=== PATIENT | male | born 1955 | race Caucasian/White ===

== ENCOUNTER 2017-08-26 12:17 | Inpatient (IN) | payer SELFPAY ==
[2017-08-26] MEDS ORDERED: PREDNISONE 20 MG TABLET PO ONE (12:47)
[2017-08-26] MEDS ORDERED: IPRATROPIUM/ALBUTEROL 0.5-2.5 MG/3 ML AMPUL NEB ONE (12:47)
--- NOTE | 2017-08-26 12:48 | ER Document Report ---
ED Medical Screen (RME) - General Chief Complaint: Chest Pain Stated Complaint: CONGESTION Time Seen by Provider: 08/26/17 12:43 Notes: 60-year-old male smoker complains of a one-week history of chest congestion, cough, chest pain. He reports it hurts when he coughs but he also has pain when he is not coughing. He states he has had thick yellow sputum. He states he has not slept much in the past week. He does smoke up to a pack a day. I have greeted and performed a rapid initial assessment of this patient. A comprehensive ED assessment and evaluation of the patient, analysis of test results and completion of the medical decision making process will be conducted by additional ED providers. TRAVEL OUTSIDE OF THE [place] IN LAST 30 DAYS: No - Related Data Allergies/Adverse Reactions: No Known Allergies Allergy (Verified 08/26/17 12:17) Physical Exam - Vital signs Vitals: Temp Pulse Resp BP Pulse Ox 97.4 F 134 H 24 H 122/80 97 08/26/17 12:20 08/26/17 12:20 08/26/17 12:20 08/26/17 12:20 08/26/17 12:20 Course - Vital Signs Vital signs: Temp Pulse Resp BP Pulse Ox 97.4 F 134 H 24 H 122/80 97 08/26/17 12:20 08/26/17 12:20 08/26/17 12:20 08/26/17 12:20 08/26/17 12:20
[2017-08-26 13:27] LABS: ABSOLUTE BASOPHILS # (AUTO) 0.1 10^3/uL (0.0-0.2); ABSOLUTE EOSINOPHILS # (AUTO) 0.2 10^3/uL (0.0-0.6); ABSOLUTE LYMPHOCYTES (AUTO) 1.3 10^3/uL (0.5-4.7); ABSOLUTE NEUT (AUTO) 7.6 10^3/uL (1.7-8.2); EOSINOPHILS % (AUTO) 1.6 % (0-6); HEMATOCRIT 42.1 % (37.9-51.0); HEMOGLOBIN 14.4 g/dL (13.5-17.0); LYMPHOCYTES % (AUTO) 13.2 % (13-45); MEAN CORPUSCULAR HEMOGLOBIN 30.4 pg (27.0-33.4); MEAN CORPUSCULAR HGB CONC 34.2 g/dL (32.0-36.0); MEAN CORPUSCULAR VOLUME 89 fl (80-97); MONOCYTES % (AUTO) 9.5 % (3-13); PLATELET COUNT 629 10^3/uL (150-450); RED BLOOD COUNT 4.73 10^6/uL (4.35-5.55); RED CELL DISTRIBUTION WIDTH 12.6 % (11.5-14.0); SEGMENTED NEUTROPHILS % (AUTO) 74.7 % (42-78); TOTAL CELLS COUNTED % (AUTO) 100 %; WHITE BLOOD COUNT 10.2 10^3/uL (4.0-10.5)
[2017-08-26] MEDS ORDERED: NORMAL SALINE 1000 ML 1,000 ML IV ONE (13:30)
--- NOTE | 2017-08-26 13:33 | ER Document Report ---
ED Cardiac - General Chief Complaint: Chest Pain Stated Complaint: CONGESTION Time Seen by Provider: 08/26/17 12:43 Mode of Arrival: Ambulatory Information source: Patient TRAVEL OUTSIDE OF THE [place] IN LAST 30 DAYS: No - HPI Patient complains to provider of: Chest pain Notes: Patient is here with complaints of left-sided chest pain. The pain is been present for the last few days. The pain is constant but certainly worse when he coughs. He has had a cough for about a week and also lost his voice. He states he has been coughing up some yellow colored sputum. He is a smoker. He denies any fevers. He denies any significant shortness of breath. He denies any known history of high cholesterol, diabetes, hypertension, CAD, COPD, but states that he has not seen a doctor and several years. He denies any recent long trips or car rides, leg pain or leg swelling, cancer, history of DVT or PE. Denies any rash. No abdominal pain. No nausea, vomiting, diarrhea. - Related Data Allergies/Adverse Reactions: No Known Allergies Allergy (Verified 08/26/17 12:17) Past Medical History - Social History Smoking Status: Current Every Day Smoker Frequency of alcohol use: None Drug Abuse: None Family History: Reviewed & Not Pertinent Patient has suicidal ideation: No Patient has homicidal ideation: No Renal/ Medical History: Denies: Hx Peritoneal Dialysis Review of Systems - Review of Systems -: Yes All other systems reviewed and negative Physical Exam - Vital signs Vitals: Temp Pulse Resp BP Pulse Ox 97.4 F 134 H 24 H 122/80 97 08/26/17 12:20 08/26/17 12:20 08/26/17 12:20 08/26/17 12:20 08/26/17 12:20 - Notes Notes: GENERAL: alert, cooperative, nontoxic, no distress. HEAD: normocephalic, atraumatic EYES: conjunctiva pink without discharge, no external redness or swelling. EARS: no external swelling, no external redness NOSE: atraumatic, no external swelling MOUTH/THROAT: mucous membranes moist and pink, posterior pharynx without erythema, swelling, exudate. No trismus or drooling. Hoarse voice. no Stridor. NECK: soft, supple, full range of motion, no meningismus. CHEST: no distress, scattered expiratory wheezes throughout. CARDIAC: regular rhythm, tachycardia, no murmur, normal capillary refill, normal pulses. No peripheral edema noted. ABDOMEN: Soft, nontender. BACK: full range of motion, no CVA tenderness. EXTREMITIES: full range of motion of all extremities. No redness, no swelling. NEURO: alert and oriented x 3, no focal deficits, full range of motion of all extremities. PYSCH: appropriate mood, affect. Patient is cooperative. SKIN: pink, warm, dry, no rash. Course - Re-evaluation Re-evalutation: 08/26/17 17:36 Patient is nontoxic appearing with stable vitals. Patient is here with complaints of left-sided chest pain. His exam is unremarkable. EKG is negative. Patient was slightly tachycardic on arrival. D-dimer was ordered and was elevated. Chest x-ray showed some nodular lesions within the chest. CT of the chest shows a large left hilar/mediastinal mass with compression of the left main and proximal pulmonary arteries as well as metastatic lesions within the lungs. Remainder the patient's workup is unremarkable. I discussed case with Dr. Burrell, the on-call hospitalist. I have discussed the case with the oncologist on-call Dr. Helton, states that the patient can stay at the hospital. On slow and he will be consulted and see the patient tomorrow morning. I discussed these findings with the patient, he is willing to stay in the hospital for further evaluation and management of this new diagnosis of metastatic lung cancer. Patient is otherwise stable at this time. 08/26/17 17:40 - Vital Signs Vital signs: Temp Pulse Resp BP Pulse Ox 97.4 F 134 H 24 H 142/86 H 97 08/26/17 12:20 08/26/17 12:20 08/26/17 15:16 08/26/17 15:16 08/26/17 15:16 - Laboratory Result Diagrams: 08/26/17 12:58 08/26/17 12:58 Laboratory results interpreted by me: 08/26/17 08/26/17 08/26/17 12:58 12:58 12:58 Plt Count 629 H D-Dimer 0.86 H BUN 21 H Glucose 113 H Calcium 10.3 H Alkaline Phosphatase 235 H - Diagnostic Test Radiology reviewed: Image reviewed, Reports reviewed - Nodular lesions within the lungs. CTA shows no obvious pulmonary embolism, large left mediastinal/ hilar mass with metastatic lesions. Significant constriction of the left main pulmonary artery. - EKG Interpretation by Me EKG shows normal: Sinus rhythm, [place], Intervals, QRS Complexes, ST-T Waves Rate: Tachycardia When compared to previous EKG there are: Previous EKG unavailable Discharge - Discharge Clinical Impression: Lung cancer Qualifiers: Laterality: left Lung location: hilum of lung Qualified Code(s): C34.02 - Malignant neoplasm of left main bronchus Condition: Serious Disposition: ADMITTED INPATIENT Admitting Provider: Hospitalist - [facility] Admitted: Telemetry
[2017-08-26 13:44] LABS: ALANINE AMINOTRANSFERASE 33 U/L (21-72); ALBUMIN 3.9 g/dL (3.5-5.0); ALKALINE PHOSPHATASE 235 U/L (38-126); ANION GAP 14 (5-19); ASPARTATE AMINO TRANSFERASE 51 U/L (17-59); BILIRUBIN,DIRECT 0.4 mg/dL (0.0-0.4); BILIRUBIN,TOTAL 0.6 mg/dL (0.2-1.3); BLOOD UREA NITROGEN 21 mg/dL (7-20); CALCIUM 10.3 mg/dL (8.4-10.2); CARBON DIOXIDE 27 mmol/L (22-30); CHLORIDE 99 mmol/L (98-107); CREATINE KINASE 80 U/L (55-170); GLUCOSE 113 mg/dL (75-110); POTASSIUM 4.4 mmol/L (3.6-5.0); SODIUM 140.2 mmol/L (137-145); TOTAL PROTEIN 6.9 g/dL (6.3-8.2)
--- NOTE | 2017-08-26 13:45 | RADIOLOGY REPORT (SQ) ---
EXAM DESCRIPTION: CHEST 2 VIEWS COMPLETED DATE/TIME: 08/26/2017 1:22 pm REASON FOR STUDY: Yellow productive cough, wheezing, chest pain COMPARISON: None. EXAM PARAMETERS: NUMBER OF VIEWS: two views TECHNIQUE: Digital Frontal and Lateral radiographic views of the chest acquired. RADIATION DOSE: NA LIMITATIONS: none FINDINGS: LUNGS AND PLEURA: Ill-defined vaguely nodular opacities throughout both lungs. No pleural effusion. No pneumothorax. MEDIASTINUM AND HILAR STRUCTURES: No masses or contour abnormalities. HEART AND VASCULAR STRUCTURES: Heart normal size. No evidence for failure. BONES: No acute findings. HARDWARE: None in the chest. OTHER: No other significant finding. IMPRESSION: ILL-DEFINED VAGUELY NODULAR OPACITIES. THESE COULD REPRESENT PLEURAL PLAQUES OR PARENCH YMAL NODULES. RECOMMEND FOLLOW-UP CT OF THE CHEST. TECHNICAL DOCUMENTATION: JOB ID: [id number] [employer]- All Rights Reserved Reading location - IP/workstation name: [email or web address]
--- NOTE | 2017-08-26 14:04 | EKG REPORT ---
SEVERITY:- BORDERLINE ECG - SINUS TACHYCARDIA PROBABLE LEFT ATRIAL ABNORMALITY BORDERLINE T WAVE ABNORMALITIES : Confirmed by: Mert Garcias MD 26-Aug-2017 14:02:50
--- NOTE | 2017-08-26 16:11 | RADIOLOGY REPORT (SQ) ---
EXAM DESCRIPTION: CTA CHEST COMPLETED DATE/TIME: 08/26/2017 3:37 pm REASON FOR STUDY: cp, tachycardia, abnormal CXR COMPARISON: Chest x-ray dated 08/26/2017. TECHNIQUE: CT scan of the chest performed using helical scanning technique with dynamic intravenous contrast injection. Images reviewed with lung, soft tissue and bone windows. Reconstructed coronal and sagittal MPR images reviewed. Additional 3 dimensional post-processing performed to develop Maximal Intensity Projection images (TX P). All images stored on PACS. All CT scanners at this facility use dose modulation, iterative reconstruction, and/or weight based d osing when appropriate to reduce radiation dose to as low as reasonably achievable (ALARA). [facility]: Dose Right [facility]: CareDose [facility]: Dose Right [facility]: Teradose 4D [facility]: [employer] CONTRAST TYPE AND DOSE: contrast/concentration: Isovue 370.00 mg/ml; Total Contrast Delivered: 62.0 ml; Total Saline Delivered: 70.1 ml Suboptimal contrast filling of the pulmonary artery branches. Contrast bolus adequate for the aorta. RENAL FUNCTION: BUN 21 creatinine 0.88. RADIATION DOSE: CT Rad equipment meets quality standard of care and radiation dose reduction techniq ues were employed. CTDIvol: 3.3 - 16.5 mGy. DLP: 572 mGy-cm. . LIMITATIONS: None. FINDINGS: LUNGS AND PLEURA: Emphysematous changes. Multiple irregular soft tissue masses, particula rly in the left upper lobe, measuring up to 1 cm. Hazy ground-glass appearance of the left lower lob e. Multiple pleural-based masses as well measuring up to 1 x 2 cm. AORTA AND GREAT VESSELS: No aneurysm. No dissection. HEART: No pericardial effusion. No significant coronary artery calcifications. PULMONARY ARTERIES: Suboptimal contrast filling. No emboli in the main pulmonary arteries. Limited evaluation of the distal pulmonary arterial branches. HILAR AND MEDIASTINAL STRUCTURES: Very large conglomerate mass in the left hilum extending into the a johnny pulmonary window and upper left mediastinum. Transverse measurements 6.5 x 8.5 cm and craniocau ricardo measurement 9 cm. Significant component also extends posterior to the aortic arch and extends castrejon periorly in the paravertebral soft tissues. This portion of the mass has transverse measurements of 3.5 cm and craniocaudal measurement of 6.5 cm. The mass in the aorta pulmonary window surrounds the left main pulmonary artery and proximal branches with significant constriction. There is also some n arrowing of the left upper lobe bronchus as well. HARDWARE: None in the chest. UPPER ABDOMEN: No significant findings. Small cortical cysts in the kidneys. Limited exam. THYROID AND OTHER SOFT TISSUES: No masses. No adenopathy. BONES: No acute or significant finding. 3D MIPS: Confirm above findings. OTHER: No other significant finding. IMPRESSION: 1. VERY LARGE MASS IN THE LEFT HILUM AND MEDIASTINUM DESCRIBED CONSISTENT WITH MALIGNANCY, EITHER PRIMARY TUMOR OR METASTATIC LYMPH NODES. THERE ARE ALSO SEVERAL PULMONARY MASSES AND PLEURAL-BASED M ASSES CONSISTENT WITH METASTASES. SLIGHTLY HAZY GROUND-GLASS APPEARANCE OF THE LEFT LOWER LOBE PROBA LEN DUE TO POSTOBSTRUCTIVE ATELECTASIS ALTHOUGH INFECTION CANNOT BE EXCLUDED. 2. SUBOPTIMAL CONTRAST FILLING OF THE PULMONARY ARTERIES. NO EMBOLI IN THE LARGER ARTERIAL BRANCHES. THERE IS SIGNIFICANT CONSTRICTION OF THE LEFT MAIN PULMONARY ARTERY AND PROXIMAL BRANCHES DUE TO TH E MASS. COMMENT: Quality ID # [id number]: Final reports with documentation of one or more dose reduction techniques (e.g., Automated exposure control, adjustment of the mA and/or kV according to patient size, use of iterative reconstruction technique) TECHNICAL DOCUMENTATION: JOB ID: [id number] [employer]- All Rights Reserved Reading location - IP/workstation name: [email or web address]
[2017-08-26] MEDS ORDERED: IPRATROPIUM/ALBUTEROL 0.5-2.5 MG/3 ML AMPUL NEB PRN (17:40)
[2017-08-26] MEDS ORDERED: MAG HYDROX/AL HYDROX/SIMETH SUSP 30 ML UDCUP PO PRN (17:40)
[2017-08-26] MEDS: IPRATROPIUM/ALBUTEROL 0.5-2.5 MG/3 ML AMPUL NEB SCH (19:25)
[2017-08-26] MEDS: HEPARIN SOD (PORCINE) 5,000 UNIT/ML 1 ML SYRINGE SUBCUT SCH (22:16)
[2017-08-26] MEDS: DOCUSATE SODIUM 100 MG CAPSULE PO SCH (22:19)
[2017-08-26] MEDS: ACETAMINOPHEN 325 MG TABLET PO PRN (22:22)
[2017-08-27] MEDS: IPRATROPIUM/ALBUTEROL 0.5-2.5 MG/3 ML AMPUL NEB SCH ×4 (01:52→19:54)
[2017-08-27] MEDS: HEPARIN SOD (PORCINE) 5,000 UNIT/ML 1 ML SYRINGE SUBCUT SCH ×3 (05:41→22:20)
[2017-08-27 06:25] LABS: ABSOLUTE BASOPHILS # (AUTO) 0.1 10^3/uL (0.0-0.2); ABSOLUTE LYMPHOCYTES (AUTO) 1.1 10^3/uL (0.5-4.7); ABSOLUTE MONOCYTES (AUTO) 0.9 10^3/uL (0.1-1.4); ABSOLUTE NEUT (AUTO) 7.1 10^3/uL (1.7-8.2); BASOPHILS % (AUTO) 0.7 % (0-2); HEMATOCRIT 34.7 % (37.9-51.0); LYMPHOCYTES % (AUTO) 12.3 % (13-45); MEAN CORPUSCULAR HEMOGLOBIN 30.4 pg (27.0-33.4); MEAN CORPUSCULAR HGB CONC 34.6 g/dL (32.0-36.0); MEAN CORPUSCULAR VOLUME 88 fl (80-97); MONOCYTES % (AUTO) 9.6 % (3-13); PLATELET COUNT 528 10^3/uL (150-450); RED BLOOD COUNT 3.95 10^6/uL (4.35-5.55); RED CELL DISTRIBUTION WIDTH 12.6 % (11.5-14.0); SEGMENTED NEUTROPHILS % (AUTO) 77.4 % (42-78); TOTAL CELLS COUNTED % (AUTO) 100 %; WHITE BLOOD COUNT 9.2 10^3/uL (4.0-10.5)
[2017-08-27 06:35] LABS: ANION GAP 11 (5-19); BLOOD UREA NITROGEN 22 mg/dL (7-20); CALCIUM 9.5 mg/dL (8.4-10.2); CARBON DIOXIDE 22 mmol/L (22-30); CHLORIDE 103 mmol/L (98-107); GLUCOSE 111 mg/dL (75-110); POTASSIUM 4.7 mmol/L (3.6-5.0); SODIUM 136.3 mmol/L (137-145)
--- NOTE | 2017-08-27 06:52 | PDOC H&P ---
History of Present Illness Admission Date/PCP: 08/26/17 17:48 Patient complains of: Chest pain History of Present Illness: RAMEZ ANTONIO is a 61 year old male with a past medical history of Tobacco Dependence who is not seen primary care physician for years. He presents with 2 weeks of change in voice, 1 week chest pain with deep breathing. He denies palpitations, nausea vomiting or diaphoresis. He admits a 30 pound weight loss over the last 12 months and a long-standing 2 x 2 centimeter ulcerated lesion of skin over the right scapula., In the emergency room he has a CT of the chest showing a very large mass in the left lung and mediastinum consistent with malignancy in addition to several pulmonary and pleural masses. He is referred to the hospitalist for admission Past Medical History Medical History: None Cardiac Medical History: Reports: None Pulmonary Medical History: Reports: None EENT Medical History: Reports: None Neurological Medical History: Reports: None Endocrine Medical History: Reports: None Renal/ Medical History: Reports: None Malignancy Medical History: Reports: None GI Medical History: Reports: None Musculoskeltal Medical History: Reports: None Skin Medical History: Reports: None Psychiatric Medical History: Reports: Tobacco Dependency Traumatic Medical History: Reports: None Hematology: Reports: None Infectious Medical History: Reports: None Past Surgical History Past Surgical History: Reports: None Social History Smoking Status: Current Every Day Smoker Cigarettes Packs Per Day: 0.5 Number of Years Smokin Frequency of Alcohol Use: None Hx Recreational Drug Use: No Drugs: None Hx Prescription Drug Abuse: No - Advance Directive Resuscitation Status: Full Code Family History Family History: COPD Parental Family History Reviewed: Yes Children Family History Reviewed: Yes Sibling(s) Family History Reviewed.: Yes Medication/Allergy Allergies/Adverse Reactions: No Known Allergies Allergy (Verified 08/26/17 12:17) Review of Systems Constitutional: PRESENT: as per HPI, anorexia, fatigue, weight loss Eyes: ABSENT: visual disturbances Ears: ABSENT: hearing changes Nose, Mouth, and Throat: PRESENT: other - Voice change Cardiovascular: ABSENT: chest pain, dyspnea on exertion, edema, orthropnea, palpitations Respiratory: PRESENT: cough, dyspnea. ABSENT: hemoptysis, sputum Gastrointestinal: ABSENT: abdominal pain, constipation, diarrhea, hematemesis, hematochezia, nausea, vomiting Genitourinary: ABSENT: dysuria, hematuria Musculoskeletal: ABSENT: joint swelling Integumentary: ABSENT: rash, wounds Neurological: ABSENT: abnormal gait, abnormal speech, confusion, dizziness, focal weakness, syncope Psychiatric: ABSENT: anxiety, depression, homidical ideation, suicidal ideation Endocrine: ABSENT: cold intolerance, heat intolerance, polydipsia, polyuria Hematologic/Lymphatic: ABSENT: easy bleeding, easy bruising Physical Exam Vital Signs: Temp Pulse Resp BP Pulse Ox 98.1 F 86 18 129/70 H 96 08/27/17 05:00 08/27/17 05:00 08/27/17 05:00 08/27/17 05:00 08/27/17 05:00 Intake & Output 08/25/17 08/26/17 08/27/17 11:59 11:59 11:59 Intake Total 222 Balance 222 Weight 53.5 kg General appearance: PRESENT: cooperative, mild distress, thin. ABSENT: well- developed, well-nourished Head exam: PRESENT: atraumatic, normocephalic Eye exam: PRESENT: conjunctiva pink, EOMI, PERRLA. ABSENT: scleral icterus Ear exam: PRESENT: normal external ear exam Mouth exam: PRESENT: moist, tongue midline Neck exam: ABSENT: carotid bruit, JVD, lymphadenopathy, thyromegaly Respiratory exam: PRESENT: crackles, decreased breath sounds, prolonged expiratory phas, symmetrical, tachypnea. ABSENT: rhonchi, wheezes Cardiovascular exam: PRESENT: RRR. ABSENT: diastolic murmur, rubs, systolic murmur Pulses: PRESENT: normal dorsalis pedis pul Vascular exam: PRESENT: normal capillary refill GI/Abdominal exam: PRESENT: normal bowel sounds, soft. ABSENT: distended, guarding, mass, organolmegaly, rebound, tenderness Rectal exam: PRESENT: deferred Extremities exam: PRESENT: full ROM. ABSENT: calf tenderness, clubbing, pedal edema Neurological exam: PRESENT: alert, awake, oriented to person, oriented to place , oriented to time, oriented to situation, CN II-XII grossly intact. ABSENT: motor sensory deficit Psychiatric exam: PRESENT: appropriate affect, normal mood. ABSENT: homicidal ideation, suicidal ideation Skin exam: PRESENT: other - Right upper back 2 x 2 centimeter excoriated ulcer. ABSENT: abrasion Results Laboratory Results: 08/27/17 05:54 08/27/17 05:54 08/27/17 08/27/17 05:54 05:54 WBC 9.2 RBC 3.95 L Hgb 12.0 L D Hct 34.7 L MCV 88 MCH 30.4 MCHC 34.6 RDW 12.6 Plt Count 528 H Seg Neutrophils % 77.4 Lymphocytes % 12.3 L Monocytes % 9.6 Eosinophils % 0.0 Basophils % 0.7 Absolute Neutrophils 7.1 Absolute Lymphocytes 1.1 Absolute Monocytes 0.9 Absolute Eosinophils 0.0 Absolute Basophils 0.1 Sodium 136.3 L Potassium 4.7 Chloride 103 Carbon Dioxide 22 Anion Gap 11 BUN 22 H Creatinine 0.68 Est GFR ( Amer) > 60 Est GFR (Non-Af Amer) > 60 Glucose 111 H Calcium 9.5 Impressions: Chest X-Ray 08/26/17 12:47 IMPRESSION: ILL-DEFINED VAGUELY NODULAR OPACITIES. THESE COULD REPRESENT PLEURAL PLAQUES OR PARENCHYMAL NODULES. RECOMMEND FOLLOW-UP CT OF THE CHEST. Chest/Abdomen CTA 08/26/17 13:53 IMPRESSION: 1. VERY LARGE MASS IN THE LEFT HILUM AND MEDIASTINUM DESCRIBED CONSISTENT WITH MALIGNANCY, EITHER PRIMARY TUMOR OR METASTATIC LYMPH NODES. THERE ARE ALSO SEVERAL PULMONARY MASSES AND PLEURAL-BASED MASSES CONSISTENT WITH METASTASES. SLIGHTLY HAZY GROUND-GLASS APPEARANCE OF THE LEFT LOWER LOBE PROBABLY DUE TO POSTOBSTRUCTIVE ATELECTASIS ALTHOUGH INFECTION CANNOT BE EXCLUDED. 2. SUBOPTIMAL CONTRAST FILLING OF THE PULMONARY ARTERIES. NO EMBOLI IN THE LARGER ARTERIAL BRANCHES. THERE IS SIGNIFICANT CONSTRICTION OF THE LEFT MAIN PULMONARY ARTERY AND PROXIMAL BRANCHES DUE TO THE MASS. Assessment & Plan - Diagnosis (1) Lung mass Is this a current diagnosis for this admission?: Yes Plan: Unclear primary oncology consulted, symptomatic management (2) COPD (chronic obstructive pulmonary disease) Is this a current diagnosis for this admission?: Yes Plan: Albuterol and Atrovent, (3) Squamous cell carcinoma Is this a current diagnosis for this admission?: Yes Plan: Lesion right hepatic suggestive of squamous cell carcinoma versus malignant melanoma. Oncology consult consider dermatology consult - Time Time Spent: 50 to 70 Minutes - Inpatient Certification Medical Necessity: Need Close Monitoring Due to Risk of Patient Decompensation
--- NOTE | 2017-08-27 08:42 | PDOC CONSULTATION ---
Consultation Consult Date: 08/27/17 Attending physician:: MARCEL BRUMFIELD Consult reason:: L hilar mass History of Present Illness Admission Date/PCP: 08/26/17 17:48 Patient complains of: SOB, L hilar mass History of Present Illness: RAMEZ ANTONIO is a 61 year old male w/ known extensive smoking hx, 50pk yr, presents w/ 2 wk hx of worsening SOB/PALOMINO and L sided CP, over last 1m had 5# wt loss, purulent sputum but no hemoptysis, CTA chest done on admit indicates large L hilar mass up to 8cm, also pleural based nodules, mass effect on pulm artery. No distinct PE noted. Pt feels better this am. Past Medical History Cardiac Medical History: Reports: None Pulmonary Medical History: Reports: None EENT Medical History: Reports: None Neurological Medical History: Reports: None Endocrine Medical History: Reports: None Renal/ Medical History: Reports: None Malignancy Medical History: Reports: None GI Medical History: Reports: None Musculoskeltal Medical History: Reports: None Skin Medical History: Reports: None Psychiatric Medical History: Reports: Tobacco Dependency Traumatic Medical History: Reports: None Hematology: Reports: None Infectious Medical History: Reports: None Past Surgical History Past Surgical History: Reports: None, Orthopedic Surgery - R knee cap reconstruction 1980, wires in place Social History Smoking Status: Current Every Day Smoker Cigarettes Packs Per Day: 2 Number of Years Smokin Frequency of Alcohol Use: None Hx Recreational Drug Use: No Drugs: None Hx Prescription Drug Abuse: No - Advance Directive Resuscitation Status: Full Code Family History Family History: COPD Parental Family History Reviewed: Yes Children Family History Reviewed: Yes Sibling(s) Family History Reviewed.: Yes Medication/Allergy Allergies/Adverse Reactions: No Known Allergies Allergy (Verified 08/26/17 12:17) Review of Systems Constitutional: PRESENT: fatigue, weakness Cardiovascular: PRESENT: chest pain, dyspnea on exertion Respiratory: PRESENT: cough, dyspnea, sputum Gastrointestinal: ABSENT: abdominal pain, constipation, diarrhea, hematemesis, hematochezia, nausea, vomiting Neurological: ABSENT: abnormal gait, abnormal speech, confusion, dizziness, focal weakness, syncope Psychiatric: ABSENT: anxiety, depression, homidical ideation, suicidal ideation Physical Exam Vital Signs: Temp Pulse Resp BP Pulse Ox 98.1 F 83 16 129/70 H 98 08/27/17 05:00 08/27/17 07:42 08/27/17 07:42 08/27/17 05:00 08/27/17 07:42 Intake & Output 08/26/17 08/27/17 08/28/17 06:59 06:59 06:59 Intake Total 222 Balance 222 Weight 53.5 kg General appearance: PRESENT: no acute distress, well-developed, well-nourished Head exam: PRESENT: atraumatic, normocephalic Eye exam: PRESENT: conjunctiva pink, EOMI, PERRLA. ABSENT: scleral icterus Ear exam: PRESENT: normal external ear exam Mouth exam: PRESENT: moist, tongue midline Neck exam: ABSENT: carotid bruit, JVD, lymphadenopathy, thyromegaly Respiratory exam: PRESENT: clear to auscultation roshni. ABSENT: rales, rhonchi, wheezes Cardiovascular exam: PRESENT: RRR. ABSENT: diastolic murmur, rubs, systolic murmur Pulses: PRESENT: normal dorsalis pedis pul Vascular exam: PRESENT: normal capillary refill GI/Abdominal exam: PRESENT: normal bowel sounds, soft. ABSENT: distended, guarding, mass, organolmegaly, rebound, tenderness Rectal exam: PRESENT: deferred Extremities exam: PRESENT: full ROM. ABSENT: calf tenderness, clubbing, pedal edema Neurological exam: PRESENT: alert, awake, oriented to person, oriented to place , oriented to time, oriented to situation, CN II-XII grossly intact. ABSENT: motor sensory deficit Psychiatric exam: PRESENT: appropriate affect, normal mood. ABSENT: homicidal ideation, suicidal ideation Skin exam: PRESENT: dry, intact, warm. ABSENT: cyanosis, rash Results Laboratory Results: 08/27/17 05:54 08/27/17 05:54 08/27/17 08/27/17 05:54 05:54 WBC 9.2 RBC 3.95 L Hgb 12.0 L D Hct 34.7 L MCV 88 MCH 30.4 MCHC 34.6 RDW 12.6 Plt Count 528 H Seg Neutrophils % 77.4 Lymphocytes % 12.3 L Monocytes % 9.6 Eosinophils % 0.0 Basophils % 0.7 Absolute Neutrophils 7.1 Absolute Lymphocytes 1.1 Absolute Monocytes 0.9 Absolute Eosinophils 0.0 Absolute Basophils 0.1 Sodium 136.3 L Potassium 4.7 Chloride 103 Carbon Dioxide 22 Anion Gap 11 BUN 22 H Creatinine 0.68 Est GFR ( Amer) > 60 Est GFR (Non-Af Amer) > 60 Glucose 111 H Calcium 9.5 Impressions: Chest X-Ray 08/26/17 12:47 IMPRESSION: ILL-DEFINED VAGUELY NODULAR OPACITIES. THESE COULD REPRESENT PLEURAL PLAQUES OR PARENCHYMAL NODULES. RECOMMEND FOLLOW-UP CT OF THE CHEST. Chest/Abdomen CTA 08/26/17 13:53 IMPRESSION: 1. VERY LARGE MASS IN THE LEFT HILUM AND MEDIASTINUM DESCRIBED CONSISTENT WITH MALIGNANCY, EITHER PRIMARY TUMOR OR METASTATIC LYMPH NODES. THERE ARE ALSO SEVERAL PULMONARY MASSES AND PLEURAL-BASED MASSES CONSISTENT WITH METASTASES. SLIGHTLY HAZY GROUND-GLASS APPEARANCE OF THE LEFT LOWER LOBE PROBABLY DUE TO POSTOBSTRUCTIVE ATELECTASIS ALTHOUGH INFECTION CANNOT BE EXCLUDED. 2. SUBOPTIMAL CONTRAST FILLING OF THE PULMONARY ARTERIES. NO EMBOLI IN THE LARGER ARTERIAL BRANCHES. THERE IS SIGNIFICANT CONSTRICTION OF THE LEFT MAIN PULMONARY ARTERY AND PROXIMAL BRANCHES DUE TO THE MASS. Status: Image reviewed by me Assessment & Plan - Diagnosis (1) Lung mass Is this a current diagnosis for this admission?: Yes Plan: Large L hilar mass, next step would be bronch w/ bx, d/w Dr. Schultz who will be doing procedure. Will complete staging w/ CT A/P and bone scan. Will follow. - Time Time Spent: Greater than 70 Minutes - Inpatient Certification Based on my medical assessment, after consideration of the patient's comorbidities, presenting symptoms, or acuity I expect that the services needed warrant INPATIENT care.: Yes I certify that my determination is in accordance with my understanding of Medicare's requirements for reasonable and necessary INPATIENT services [42 CFR 412.3e].: Yes Medical Necessity: Need for IV Antibiotics, Need for Surgery
[2017-08-27] MEDS ORDERED: GUAIFENESIN 600 MG TABLET.SA PO ONE (09:00)
[2017-08-27] MEDS: DOCUSATE SODIUM 100 MG CAPSULE PO SCH ×2 (09:15→15:31)
[2017-08-27] MEDS: ACETAMINOPHEN 325 MG TABLET PO PRN (09:18)
[2017-08-27] MEDS ORDERED: GLUCAGON,HUMAN RECOMB 1 MG INJ SUBCUT PRN (11:43)
[2017-08-27] MEDS ORDERED: DEXTROSE 40% GEL 15 GM TUBE PO PRN ×4 (11:43→13:47)
[2017-08-27] MEDS ORDERED: DEXTROSE 50%-WATER 25 GM/50 ML DISP.SYRIN IV PRN ×4 (11:43→13:47)
--- NOTE | 2017-08-27 11:43 | PDOC CONSULTATION ---
Consultation Consult Date: 08/27/17 Attending physician:: ADALBERTO ANAYA Consult reason:: L lung mass History of Present Illness Admission Date/PCP: 08/26/17 17:48 History of Present Illness: RAMEZ ANTONIO is a 61 year old male Presented to the ED after approximately 1 week of increasing shortness of breath and a cough productive of yellow phlegm questionable fevers and chills he denies hemoptysis his PPD status unknown he denies history of chronic lung disease as a child or adolescent. He admits to exposure to large amounts of passive smoke as a child as well as an adult. He himself is smoked 2 packs a day for 50 years and is now down to half pack per day. Does admit to some weight loss. 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 Exposed to large amounts of dust and dirt. He has no pets and denies any recent travel. He denies angina-like chest pain sleeps on 2 pillows occasional PND recent increase in nocturnal cough and no edema. He is unaware of any snoring but admits to restless sleep nocturia 2-3 times per night unrestful sleep and excessive daytime somnolence. Past Medical History Cardiac Medical History: Reports: None Pulmonary Medical History: Reports: None EENT Medical History: Reports: None Neurological Medical History: Reports: None Endocrine Medical History: Reports: None Renal/ Medical History: Reports: None Malignancy Medical History: Reports: None GI Medical History: Reports: None Musculoskeltal Medical History: Reports: None Skin Medical History: Reports: None Psychiatric Medical History: Reports: Tobacco Dependency Traumatic Medical History: Reports: None Hematology: Reports: None Infectious Medical History: Reports: None Past Surgical History Past Surgical History: Reports: None, Orthopedic Surgery - R knee cap reconstruction 1980, wires in place Social History Information Source: Patient, [facility] Records 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 Smoking Status: Current Every Day Smoker Cigarettes Packs Per Day: 2 Number of Years Smokin Passive smoke exposure as: Both Frequency of Alcohol Use: None Hx Recreational Drug Use: No Drugs: None Hx Prescription Drug Abuse: No Do you have pets?: No Have you had any respiratory illnesses as a child?: No Have you been exposed to any sick contacts recently?: No Have you had any recent respiratory illnesses?: Yes Have you travelled outside of [place] in the past 12 months?: No - Advance Directive Resuscitation Status: Full Code Family History Family History: COPD, CVA Parental Family History Reviewed: Yes Children Family History Reviewed: Yes Sibling(s) Family History Reviewed.: Yes Medication/Allergy Home Medications: No Home Medications 08/27/17 Allergies/Adverse Reactions: No Known Allergies Allergy (Verified 08/26/17 12:17) Review of Systems Constitutional: PRESENT: anorexia, chills, weakness, weight loss. ABSENT: fatigue, fever(s), headache(s), night sweats Eyes: ABSENT: visual disturbances Ears: ABSENT: hearing changes Nose, Mouth, and Throat: ABSENT: mouth pain, sore throat Cardiovascular: ABSENT: edema, orthropnea, palpitations Respiratory: PRESENT: cough, dyspnea. ABSENT: hemoptysis Gastrointestinal: ABSENT: abdominal pain, bloating, coffee ground emesis, dysphagia, hematemesis, hematochezia, melena, nausea Genitourinary: PRESENT: nocturia. ABSENT: hematuria Integumentary: ABSENT: pruritus, rash Neurological: ABSENT: abnormal gait, abnormal movements, abnormal speech, confusion, convulsions, focal weakness, frequent falls, lack of coordination, memory loss Psychiatric: ABSENT: hallucinations, homidical ideation, suicidal ideation Endocrine: ABSENT: cold intolerance, heat intolerance, menstrual abnormalities, polydipsia, polyuria Hematologic/Lymphatic: ABSENT: easy bruising Physical Exam Vital Signs: Temp Pulse Resp BP Pulse Ox 98.1 F 83 16 129/70 H 98 08/27/17 05:00 08/27/17 07:42 08/27/17 07:42 08/27/17 05:00 08/27/17 07:42 Intake & Output 08/26/17 08/27/17 08/28/17 06:59 06:59 06:59 Intake Total 222 Balance 222 Weight 53.5 kg General appearance: PRESENT: no acute distress, cooperative, disheveled, thin, well-developed, well-nourished Head exam: PRESENT: atraumatic, normocephalic Eye exam: PRESENT: conjunctiva pale, EOMI. ABSENT: nystagmus, periorbital swelling, scleral icterus Mouth exam: PRESENT: dry mucosa, neck supple, tongue midline Teeth exam: PRESENT: edentulous Neck exam: ABSENT: carotid bruit, JVD, lymphadenopathy, thyromegaly, tracheal deviation, tracheostomy Respiratory exam: PRESENT: decreased breath sounds, prolonged expiratory phas, rales, rhonchi, unlabored, wheezes. ABSENT: retraction, stridor, tachypnea Cardiovascular exam: PRESENT: RRR, +S1, +S2, systolic murmur Pulses: PRESENT: normal radial pulses GI/Abdominal exam: PRESENT: diminished bowel sounds, soft Extremities exam: PRESENT: full ROM. ABSENT: clubbing, joint swelling, pedal edema Musculoskeletal exam: PRESENT: ambulatory, full ROM. ABSENT: deformity, dislocation Neurological exam: PRESENT: alert, awake Psychiatric exam: PRESENT: normal mood Skin exam: PRESENT: dry, warm Results Laboratory Results: 08/27/17 05:54 08/27/17 05:54 08/27/17 08/27/17 05:54 05:54 WBC 9.2 RBC 3.95 L Hgb 12.0 L D Hct 34.7 L MCV 88 MCH 30.4 MCHC 34.6 RDW 12.6 Plt Count 528 H Seg Neutrophils % 77.4 Lymphocytes % 12.3 L Monocytes % 9.6 Eosinophils % 0.0 Basophils % 0.7 Absolute Neutrophils 7.1 Absolute Lymphocytes 1.1 Absolute Monocytes 0.9 Absolute Eosinophils 0.0 Absolute Basophils 0.1 Sodium 136.3 L Potassium 4.7 Chloride 103 Carbon Dioxide 22 Anion Gap 11 BUN 22 H Creatinine 0.68 Est GFR ( Amer) > 60 Est GFR (Non-Af Amer) > 60 Glucose 111 H Calcium 9.5 Impressions: Chest X-Ray 08/26/17 12:47 IMPRESSION: ILL-DEFINED VAGUELY NODULAR OPACITIES. THESE COULD REPRESENT PLEURAL PLAQUES OR PARENCHYMAL NODULES. RECOMMEND FOLLOW-UP CT OF THE CHEST. Chest/Abdomen CTA 08/26/17 13:53 IMPRESSION: 1. VERY LARGE MASS IN THE LEFT HILUM AND MEDIASTINUM DESCRIBED CONSISTENT WITH MALIGNANCY, EITHER PRIMARY TUMOR OR METASTATIC LYMPH NODES. THERE ARE ALSO SEVERAL PULMONARY MASSES AND PLEURAL-BASED MASSES CONSISTENT WITH METASTASES. SLIGHTLY HAZY GROUND-GLASS APPEARANCE OF THE LEFT LOWER LOBE PROBABLY DUE TO POSTOBSTRUCTIVE ATELECTASIS ALTHOUGH INFECTION CANNOT BE EXCLUDED. 2. SUBOPTIMAL CONTRAST FILLING OF THE PULMONARY ARTERIES. NO EMBOLI IN THE LARGER ARTERIAL BRANCHES. THERE IS SIGNIFICANT CONSTRICTION OF THE LEFT MAIN PULMONARY ARTERY AND PROXIMAL BRANCHES DUE TO THE MASS. Assessment & Plan - Diagnosis (1) COPD (chronic obstructive pulmonary disease) Is this a current diagnosis for this admission?: Yes Plan: Continue bronchodilators as you have initiated (2) Lung mass Is this a current diagnosis for this admission?: Yes Plan: Discussed with patient radiographic findings his enuresis increased risk for possible malignancy we discussed bronchoscopy in the risk and dangers associated with this procedure patient is willing to proceed we will schedule a bronchoscopy has spoken with endoscopy unit awaiting final reply
[2017-08-27] MEDS: PIPERACILLIN SODIUM/TAZOBACTAM 3.375 GM in NORMAL SALINE 100 ML IV SCH ×3 (13:05→23:35)
[2017-08-27] MEDS ORDERED: BENZONATATE 100 MG CAPSULE PO PRN (13:40)
[2017-08-27] MEDS ORDERED: GLUCAGON,HUMAN RECOMB 1 MG INJ IM PRN (13:47)
[2017-08-27] MEDS ORDERED: INSULIN LISPRO 100 UNIT/ML 3 ML VIAL SUBCUT PRN (13:47)
--- NOTE | 2017-08-27 13:51 | PDOC PROGRESS REPORT ---
Subjective Progress Note for:: 08/27/17 Reason For Visit: LUNG MASS,CHEST PAIN,COPD Physical Exam Vital Signs: Temp Pulse Resp BP Pulse Ox 98.1 F 83 16 129/70 H 98 08/27/17 05:00 08/27/17 07:42 08/27/17 07:42 08/27/17 05:00 08/27/17 07:42 Intake & Output 08/26/17 08/27/17 08/28/17 06:59 06:59 06:59 Intake Total 222 Balance 222 Weight 53.5 kg General appearance: PRESENT: cooperative, thin Head exam: PRESENT: atraumatic, normocephalic Eye exam: PRESENT: conjunctiva pink, EOMI, PERRLA Mouth exam: PRESENT: moist Neck exam: PRESENT: full ROM. ABSENT: JVD, lymphadenopathy, tenderness Respiratory exam: PRESENT: crackles, decreased breath sounds Cardiovascular exam: PRESENT: RRR. ABSENT: diastolic murmur, systolic murmur Vascular exam: PRESENT: normal capillary refill GI/Abdominal exam: PRESENT: normal bowel sounds, soft. ABSENT: tenderness Extremities exam: PRESENT: full ROM. ABSENT: pedal edema Musculoskeletal exam: PRESENT: ambulatory Neurological exam: PRESENT: alert, awake, oriented to person, oriented to place , oriented to time, oriented to situation, CN II-XII grossly intact Psychiatric exam: PRESENT: appropriate affect, normal mood Skin exam: PRESENT: intact, normal color Results Laboratory Results: 08/27/17 05:54 08/27/17 05:54 08/27/17 08/27/17 05:54 05:54 WBC 9.2 RBC 3.95 L Hgb 12.0 L D Hct 34.7 L MCV 88 MCH 30.4 MCHC 34.6 RDW 12.6 Plt Count 528 H Seg Neutrophils % 77.4 Lymphocytes % 12.3 L Monocytes % 9.6 Eosinophils % 0.0 Basophils % 0.7 Absolute Neutrophils 7.1 Absolute Lymphocytes 1.1 Absolute Monocytes 0.9 Absolute Eosinophils 0.0 Absolute Basophils 0.1 Sodium 136.3 L Potassium 4.7 Chloride 103 Carbon Dioxide 22 Anion Gap 11 BUN 22 H Creatinine 0.68 Est GFR ( Amer) > 60 Est GFR (Non-Af Amer) > 60 Glucose 111 H Calcium 9.5 Impressions: Chest X-Ray 08/26/17 12:47 IMPRESSION: ILL-DEFINED VAGUELY NODULAR OPACITIES. THESE COULD REPRESENT PLEURAL PLAQUES OR PARENCHYMAL NODULES. RECOMMEND FOLLOW-UP CT OF THE CHEST. Chest/Abdomen CTA 08/26/17 13:53 IMPRESSION: 1. VERY LARGE MASS IN THE LEFT HILUM AND MEDIASTINUM DESCRIBED CONSISTENT WITH MALIGNANCY, EITHER PRIMARY TUMOR OR METASTATIC LYMPH NODES. THERE ARE ALSO SEVERAL PULMONARY MASSES AND PLEURAL-BASED MASSES CONSISTENT WITH METASTASES. SLIGHTLY HAZY GROUND-GLASS APPEARANCE OF THE LEFT LOWER LOBE PROBABLY DUE TO POSTOBSTRUCTIVE ATELECTASIS ALTHOUGH INFECTION CANNOT BE EXCLUDED. 2. SUBOPTIMAL CONTRAST FILLING OF THE PULMONARY ARTERIES. NO EMBOLI IN THE LARGER ARTERIAL BRANCHES. THERE IS SIGNIFICANT CONSTRICTION OF THE LEFT MAIN PULMONARY ARTERY AND PROXIMAL BRANCHES DUE TO THE MASS. Assessment & Plan - Diagnosis (1) Lung cancer Qualifiers: Laterality: left Lung location: hilum of lung Qualified Code(s): C34.02 - Malignant neoplasm of left main bronchus Is this a current diagnosis for this admission?: Yes Plan: Consult Dr Schultz. Dr Davenport on board. Recommends antibiotic to cover for post obstructive pneumonia (2) COPD (chronic obstructive pulmonary disease) Qualifiers: Chronic bronchitis type: unspecified Is this a current diagnosis for this admission?: Yes Plan: Add mucolytic, IV prednisone and antitussive. (3) Tobacco abuse Is this a current diagnosis for this admission?: Yes Plan: Order nicotine patch - Time Time Spent with patient: 15-24 minutes Medications reviewed and adjusted accordingly: Yes Anticipated discharge: Home Within: within 72 hours - Inpatient Certification Based on my medical assessment, after consideration of the patient's comorbidities, presenting symptoms, or acuity I expect that the services needed warrant INPATIENT care.: Yes I certify that my determination is in accordance with my understanding of Medicare's requirements for reasonable and necessary INPATIENT services [42 CFR 412.3e].: Yes Medical Necessity: Need Close Monitoring Due to Risk of Patient Decompensation, Need for Nebulizer Therapy and Monitoring of Response, Need for IV Antibiotics
[2017-08-27] MEDS ORDERED: METHYLPREDNISOLONE INJ 40 MG/1 ML SDV IV ONE (14:15)
[2017-08-27] MEDS ORDERED: MORPHINE SULFATE 10 MG/ML INJ ONE (15:48)
--- NOTE | 2017-08-27 16:42 | RADIOLOGY REPORT (SQ) ---
EXAM DESCRIPTION: NM WHOLE BODY BONE SCAN COMPLETED DATE/TIME: 08/27/2017 4:25 pm REASON FOR STUDY: EVAL BONE METS -LUNG CANCER COMPARISON: CT angio chest 08/26/2017 RADIONUCLIDE AND DOSE: 20 millicuries Tc99m HDP. The route of agent administration: Intravenous. ADDITIONAL DRUGS AND DOSES: None. TECHNIQUE: Routine delayed images at 3 hours post radionuclide injection acquired of the bony skelet on including anterior and posterior whole-body projections and additional focused images as needed. LIMITATIONS: None. FINDINGS: BONES: Normal visualization without areas of photopenia or increased bony uptake of radiop harmaceutical. KIDNEYS: Symmetric excretion without obstruction. OTHER: No other significant finding. IMPRESSION: No bone scan evidence of bony metastatic disease COMMENT: Quality measure 147: Current bone scan is compared with any available plain radiographs, p rior bone scans, and CT/MRI. TECHNICAL DOCUMENTATION: JOB ID: [id number] [employer]- All Rights Reserved Reading location - IP/workstation name: [email or web address]
[2017-08-27] MEDS ORDERED: MORPHINE SULFATE 10 MG/ML INJ IV ONE (17:00)
--- NOTE | 2017-08-27 17:19 | RADIOLOGY REPORT (SQ) ---
EXAM DESCRIPTION: CT ABD/PELVIS WITH IV ORAL COMPLETED DATE/TIME: 08/27/2017 4:53 pm REASON FOR STUDY: eval for cancer mets COMPARISON: None. TECHNIQUE: CT scan of the abdomen and pelvis performed using helical scanning technique with dynamic intravenous contrast injection and oral contrast. Images reviewed with lung, soft tissue, and bone w indows. Reconstructed coronal and sagittal MPR images reviewed. Delayed images for evaluation of the urinary system also acquired. All images stored on PACS. All CT scanners at this facility use dose modulation, iterative reconstruction, and/or weight based d osing when appropriate to reduce radiation dose to as low as reasonably achievable (ALARA). [facility]: Dose Right [facility]: CareDose [facility]: Dose Right [facility]: Teradose 4D [facility]: Rip van Wafels CONTRAST TYPE AND DOSE: contrast/concentration: Isovue 370.00 mg/ml; Total Contrast Delivered: 57.0 ml; Total Saline Delivered: 58.0 ml RENAL FUNCTION: Creatinine 0.68 RADIATION DOSE: CT Rad equipment meets quality standard of care and radiation dose reduction techniq ues were employed. CTDIvol: 3.0 - 3.5 mGy. DLP: 325 mGy-cm.. LIMITATIONS: None. FINDINGS: LOWER CHEST: There is some minimal increased density in the left lung base which could rep resent atelectatic changes or minimal basilar infiltrate. LIVER: Normal size. No masses. No dilated ducts. SPLEEN: Normal size. No focal lesions. PANCREAS: No masses. No significant calcifications. No adjacent inflammation or peripancreatic fluid collections. Pancreatic duct not dilated. GALLBLADDER: No identified stones by CT criteria. No inflammatory changes to suggest cholecystitis. ADRENAL GLANDS: No significant masses or asymmetry. RIGHT KIDNEY AND URETER: No solid masses. No significant calcifications. No hydronephrosis or hyd roureter. LEFT KIDNEY AND URETER: No solid masses. No significant calcifications. No hydronephrosis or hydr oureter. AORTA AND VESSELS: No aneurysm. No dissection. Renal arteries, SMA, celiac without stenosis. RETROPERITONEUM: No retroperitoneal adenopathy, hemorrhage or masses. BOWEL AND PERITONEAL CAVITY: No masses or inflammatory changes. No free fluid or peritoneal masses. APPENDIX: Not visualized PELVIS: No mass. No free fluid. Normal bladder. ABDOMINAL WALL: No masses. No hernias. BONES: No significant or acute findings. OTHER: No other significant finding. IMPRESSION: No evidence for intra- abdominal or pelvic metastatic disease is seen. Other findings a s noted above. TECHNICAL DOCUMENTATION: JOB ID: [id number] Quality ID # [id number]: Final reports with documentation of one or more dose reduction techniques (e.g., Au tomated exposure control, adjustment of the mA and/or kV according to patient size, use of iterative reconstruction technique) 2010 [employer]- All Rights Reserved Reading location - IP/workstation name: [email or web address]
[2017-08-27] MEDS: METHYLPREDNISOLONE INJ 40 MG/1 ML SDV IV SCH (22:20)
[2017-08-27] MEDS: GUAIFENESIN 600 MG TABLET.SA PO SCH (22:20)
[2017-08-28] MEDS: ACETAMINOPHEN 325 MG TABLET PO PRN (00:01)
[2017-08-28] MEDS: IPRATROPIUM/ALBUTEROL 0.5-2.5 MG/3 ML AMPUL NEB SCH ×4 (02:12→20:24)
[2017-08-28] MEDS: PIPERACILLIN SODIUM/TAZOBACTAM 3.375 GM in NORMAL SALINE 100 ML IV SCH ×3 (05:56→17:10)
[2017-08-28] MEDS: HEPARIN SOD (PORCINE) 5,000 UNIT/ML 1 ML SYRINGE SUBCUT SCH ×2 (05:56→14:07)
[2017-08-28 07:11] LABS: INTERNATIONAL RATION (INR) 0.97; PARTIAL THROMBOPLASTIN TIME 33.8 SEC (23.5-35.8); PROTHROMBIN TIME 13.4 SEC (11.4-15.4)
[2017-08-28] MEDS: METHYLPREDNISOLONE INJ 40 MG/1 ML SDV IV SCH ×2 (10:32→23:00)
[2017-08-28] MEDS: GUAIFENESIN 600 MG TABLET.SA PO SCH ×2 (10:32→23:00)
[2017-08-28] MEDS: DOCUSATE SODIUM 100 MG CAPSULE PO SCH ×2 (10:34→17:11)
[2017-08-28] MEDS: NICOTINE 21 MG/24 HR PATCH.TD24 TD SCH (10:34)
[2017-08-28] MEDS ORDERED: HYDROCODONE/ACETAMINOPHEN 5-325 MG TABLET ONE (10:44)
--- NOTE | 2017-08-28 11:04 | PDOC PROGRESS REPORT ---
Subjective Progress Note for:: 08/28/17 Subjective:: No acute events overnight, have L sided CP this am, ordered KPAD for comfort and norco prn pain, d/w Dr. Schultz, bronch planned for wednesday, he wrote orders for NPO after midnight on wednesday Reason For Visit: LUNG MASS,CHEST PAIN,COPD Physical Exam Vital Signs: Temp Pulse Resp BP Pulse Ox 97.7 F 83 16 137/78 H 98 08/28/17 07:33 08/28/17 07:56 08/28/17 07:56 08/28/17 07:33 08/28/17 07:56 Intake & Output 08/27/17 08/28/17 08/29/17 06:59 06:59 06:59 Intake Total 222 1509 Balance 222 1509 Weight 53.5 kg 56.5 kg General appearance: PRESENT: no acute distress, well-developed, well-nourished Head exam: PRESENT: atraumatic, normocephalic Eye exam: PRESENT: conjunctiva pink, EOMI, PERRLA. ABSENT: scleral icterus Ear exam: PRESENT: normal external ear exam Mouth exam: PRESENT: moist, tongue midline Neck exam: ABSENT: carotid bruit, JVD, lymphadenopathy, thyromegaly Respiratory exam: PRESENT: clear to auscultation roshni. ABSENT: rales, rhonchi, wheezes Cardiovascular exam: PRESENT: RRR. ABSENT: diastolic murmur, rubs, systolic murmur Pulses: PRESENT: normal dorsalis pedis pul Vascular exam: PRESENT: normal capillary refill GI/Abdominal exam: PRESENT: normal bowel sounds, soft. ABSENT: distended, guarding, mass, organolmegaly, rebound, tenderness Rectal exam: PRESENT: deferred Extremities exam: PRESENT: full ROM. ABSENT: calf tenderness, clubbing, pedal edema Neurological exam: PRESENT: alert, awake, oriented to person, oriented to place , oriented to time, oriented to situation, CN II-XII grossly intact. ABSENT: motor sensory deficit Psychiatric exam: PRESENT: appropriate affect, normal mood. ABSENT: homicidal ideation, suicidal ideation Skin exam: PRESENT: dry, intact, warm. ABSENT: cyanosis, rash Results Laboratory Results: 08/27/17 05:54 08/27/17 05:54 Impressions: Chest X-Ray 08/26/17 12:47 IMPRESSION: ILL-DEFINED VAGUELY NODULAR OPACITIES. THESE COULD REPRESENT PLEURAL PLAQUES OR PARENCHYMAL NODULES. RECOMMEND FOLLOW-UP CT OF THE CHEST. Chest/Abdomen CTA 08/26/17 13:53 IMPRESSION: 1. VERY LARGE MASS IN THE LEFT HILUM AND MEDIASTINUM DESCRIBED CONSISTENT WITH MALIGNANCY, EITHER PRIMARY TUMOR OR METASTATIC LYMPH NODES. THERE ARE ALSO SEVERAL PULMONARY MASSES AND PLEURAL-BASED MASSES CONSISTENT WITH METASTASES. SLIGHTLY HAZY GROUND-GLASS APPEARANCE OF THE LEFT LOWER LOBE PROBABLY DUE TO POSTOBSTRUCTIVE ATELECTASIS ALTHOUGH INFECTION CANNOT BE EXCLUDED. 2. SUBOPTIMAL CONTRAST FILLING OF THE PULMONARY ARTERIES. NO EMBOLI IN THE LARGER ARTERIAL BRANCHES. THERE IS SIGNIFICANT CONSTRICTION OF THE LEFT MAIN PULMONARY ARTERY AND PROXIMAL BRANCHES DUE TO THE MASS. Abdomen/Pelvis CT 08/27/17 09:32 IMPRESSION: No evidence for intra- abdominal or pelvic metastatic disease is seen. Other findings as noted above. Body Scan Nuclear Medicine 08/27/17 11:09 IMPRESSION: No bone scan evidence of bony metastatic disease Assessment & Plan - Diagnosis (1) Lung mass Is this a current diagnosis for this admission?: Yes Plan: Plan for bx on wednesday, rest of metastatic w/u negative thus far dx confined to lungs as of now. (2) Pain due to neoplasm Is this a current diagnosis for this admission?: Yes Plan: Start norco and KPAD today
[2017-08-28 15:22] LABS: HEMATOCRIT 34.2 % (37.9-51.0); HEMOGLOBIN 12.1 g/dL (13.5-17.0); MEAN CORPUSCULAR HEMOGLOBIN 31.3 pg (27.0-33.4); MEAN CORPUSCULAR HGB CONC 35.3 g/dL (32.0-36.0); MEAN CORPUSCULAR VOLUME 89 fl (80-97); PLATELET COUNT 546 10^3/uL (150-450); RED BLOOD COUNT 3.85 10^6/uL (4.35-5.55); RED CELL DISTRIBUTION WIDTH 12.6 % (11.5-14.0); WHITE BLOOD COUNT 15.3 10^3/uL (4.0-10.5)
[2017-08-28 15:28] LABS: INTERNATIONAL RATION (INR) 0.94; PARTIAL THROMBOPLASTIN TIME 30.3 SEC (23.5-35.8); PROTHROMBIN TIME 13.1 SEC (11.4-15.4)
--- NOTE | 2017-08-28 15:50 | PDOC PROGRESS REPORT ---
Subjective Progress Note for:: 08/28/17 Subjective:: Old gentleman with a 74-bpfg-ages smoking history presented to the hospital on August 26 with a two-week history of worsening shortness of breath and dyspnea with exertion associated with left-sided chest pain. He reported a 5 pound weight loss over the past 1 month with cough and purulent expectoration. He denied hemoptysis. CT angiogram of the chest showed a large left sided hilar lung mass measuring approximately 8 cm. Pleural based nodules were also seen. ET of the abdomen and pelvis was unremarkable. Bone scan was negative for metastatic disease. Plan is for a bronchoscopic biopsy on August 30. Continues to cough and gets short of breath with exertion. Reason For Visit: LUNG MASS,CHEST PAIN,COPD Physical Exam Vital Signs: Temp Pulse Resp BP Pulse Ox 97.9 F 101 H 18 143/72 H 96 08/28/17 11:28 08/28/17 14:00 08/28/17 13:43 08/28/17 11:28 08/28/17 13:43 Intake & Output 08/27/17 08/28/17 08/29/17 06:59 06:59 06:59 Intake Total 222 1509 Balance 222 1509 Weight 53.5 kg 56.5 kg General appearance: PRESENT: thin Head exam: PRESENT: atraumatic Eye exam: ABSENT: scleral icterus Ear exam: PRESENT: normal external ear exam Neck exam: ABSENT: tenderness Respiratory exam: PRESENT: rhonchi, symmetrical, unlabored Cardiovascular exam: PRESENT: RRR GI/Abdominal exam: PRESENT: soft. ABSENT: tenderness Rectal exam: PRESENT: deferred Extremities exam: ABSENT: calf tenderness, pedal edema Neurological exam: PRESENT: alert, awake, oriented to person, oriented to place , oriented to time, oriented to situation Psychiatric exam: PRESENT: normal mood Skin exam: ABSENT: rash Results Laboratory Results: 08/27/17 05:54 08/27/17 05:54 Impressions: Chest X-Ray 08/26/17 12:47 IMPRESSION: ILL-DEFINED VAGUELY NODULAR OPACITIES. THESE COULD REPRESENT PLEURAL PLAQUES OR PARENCHYMAL NODULES. RECOMMEND FOLLOW-UP CT OF THE CHEST. Chest/Abdomen CTA 08/26/17 13:53 IMPRESSION: 1. VERY LARGE MASS IN THE LEFT HILUM AND MEDIASTINUM DESCRIBED CONSISTENT WITH MALIGNANCY, EITHER PRIMARY TUMOR OR METASTATIC LYMPH NODES. THERE ARE ALSO SEVERAL PULMONARY MASSES AND PLEURAL-BASED MASSES CONSISTENT WITH METASTASES. SLIGHTLY HAZY GROUND-GLASS APPEARANCE OF THE LEFT LOWER LOBE PROBABLY DUE TO POSTOBSTRUCTIVE ATELECTASIS ALTHOUGH INFECTION CANNOT BE EXCLUDED. 2. SUBOPTIMAL CONTRAST FILLING OF THE PULMONARY ARTERIES. NO EMBOLI IN THE LARGER ARTERIAL BRANCHES. THERE IS SIGNIFICANT CONSTRICTION OF THE LEFT MAIN PULMONARY ARTERY AND PROXIMAL BRANCHES DUE TO THE MASS. Abdomen/Pelvis CT 08/27/17 09:32 IMPRESSION: No evidence for intra- abdominal or pelvic metastatic disease is seen. Other findings as noted above. Body Scan Nuclear Medicine 08/27/17 11:09 IMPRESSION: No bone scan evidence of bony metastatic disease Assessment & Plan - Diagnosis (1) Lung cancer Qualifiers: Laterality: left Lung location: hilum of lung Qualified Code(s): C34.02 - Malignant neoplasm of left main bronchus Is this a current diagnosis for this admission?: Yes Plan: Plan for bronchoscopy and biopsy on 08/30 (2) Tobacco dependence Is this a current diagnosis for this admission?: Yes Plan: Nicotine patch (3) COPD (chronic obstructive pulmonary disease) Qualifiers: Chronic bronchitis type: unspecified Is this a current diagnosis for this admission?: Yes Plan: Neb tt, taper steroids - Time Time Spent with patient: 35 or more minutes
[2017-08-29] MEDS: PIPERACILLIN SODIUM/TAZOBACTAM 3.375 GM in NORMAL SALINE 100 ML IV SCH ×2 (00:32→05:33)
[2017-08-29] MEDS: IPRATROPIUM/ALBUTEROL 0.5-2.5 MG/3 ML AMPUL NEB SCH ×4 (01:46→20:05)
[2017-08-29] MEDS ORDERED: LANSOPRAZOLE 15 MG TAB.RAP.DR PO ONE (09:00)
[2017-08-29] MEDS: GUAIFENESIN 600 MG TABLET.SA PO SCH ×2 (09:37→22:14)
[2017-08-29] MEDS: LACTOBACILLUS ACIDOPHILUS 250 MG TAB PO SCH ×2 (09:37→17:26)
[2017-08-29] MEDS: METHYLPREDNISOLONE INJ 40 MG/1 ML SDV IV SCH ×2 (09:37→22:14)
[2017-08-29] MEDS: DOCUSATE SODIUM 100 MG CAPSULE PO SCH ×2 (09:37→17:26)
[2017-08-29] MEDS: NICOTINE 21 MG/24 HR PATCH.TD24 TD SCH (09:38)
[2017-08-29] MEDS: ENOXAPARIN SODIUM INJ 40 MG/0.4 ML DISP.SYRIN SUBCUT SCH (09:38)
[2017-08-29] MEDS ORDERED: SIMETHICONE 80 MG TAB.CHEW PO PRN (09:43)
[2017-08-29] MEDS ORDERED: OXYCODONE HCL IR 5 MG TABLET PO PRN (09:44)
--- NOTE | 2017-08-29 10:16 | PDOC PROGRESS REPORT ---
Subjective Progress Note for:: 08/29/17 Subjective:: No acute events overnight, stable pain, planned for NPO after midnight Reason For Visit: LUNG MASS,CHEST PAIN,COPD Physical Exam Vital Signs: Temp Pulse Resp BP Pulse Ox 98.2 F 89 20 137/77 H 97 08/29/17 07:36 08/29/17 07:38 08/29/17 07:38 08/29/17 07:36 08/29/17 07:38 Intake & Output 08/28/17 08/29/17 08/30/17 06:59 06:59 06:59 Intake Total 1509 1566 Output Total 300 Balance 1509 1266 Weight 56.5 kg 56.4 kg General appearance: PRESENT: no acute distress, well-developed, well-nourished Head exam: PRESENT: atraumatic, normocephalic Eye exam: PRESENT: conjunctiva pink, EOMI, PERRLA. ABSENT: scleral icterus Ear exam: PRESENT: normal external ear exam Mouth exam: PRESENT: moist, tongue midline Neck exam: ABSENT: carotid bruit, JVD, lymphadenopathy, thyromegaly Respiratory exam: PRESENT: clear to auscultation roshni. ABSENT: rales, rhonchi, wheezes Cardiovascular exam: PRESENT: RRR. ABSENT: diastolic murmur, rubs, systolic murmur Pulses: PRESENT: normal dorsalis pedis pul Vascular exam: PRESENT: normal capillary refill GI/Abdominal exam: PRESENT: normal bowel sounds, soft. ABSENT: distended, guarding, mass, organolmegaly, rebound, tenderness Rectal exam: PRESENT: deferred Extremities exam: PRESENT: full ROM. ABSENT: calf tenderness, clubbing, pedal edema Neurological exam: PRESENT: alert, awake, oriented to person, oriented to place , oriented to time, oriented to situation, CN II-XII grossly intact. ABSENT: motor sensory deficit Psychiatric exam: PRESENT: appropriate affect, normal mood. ABSENT: homicidal ideation, suicidal ideation Skin exam: PRESENT: dry, intact, warm. ABSENT: cyanosis, rash Results Laboratory Results: 08/28/17 14:42 08/28/17 14:42 08/28/17 08/28/17 14:42 14:42 WBC 15.3 H RBC 3.85 L Hgb 12.1 L Hct 34.2 L MCV 89 MCH 31.3 MCHC 35.3 RDW 12.6 Plt Count 546 H Creatinine 0.82 Est GFR ( Amer) > 60 Est GFR (Non-Af Amer) > 60 Impressions: Chest X-Ray 08/26/17 12:47 IMPRESSION: ILL-DEFINED VAGUELY NODULAR OPACITIES. THESE COULD REPRESENT PLEURAL PLAQUES OR PARENCHYMAL NODULES. RECOMMEND FOLLOW-UP CT OF THE CHEST. Chest/Abdomen CTA 08/26/17 13:53 IMPRESSION: 1. VERY LARGE MASS IN THE LEFT HILUM AND MEDIASTINUM DESCRIBED CONSISTENT WITH MALIGNANCY, EITHER PRIMARY TUMOR OR METASTATIC LYMPH NODES. THERE ARE ALSO SEVERAL PULMONARY MASSES AND PLEURAL-BASED MASSES CONSISTENT WITH METASTASES. SLIGHTLY HAZY GROUND-GLASS APPEARANCE OF THE LEFT LOWER LOBE PROBABLY DUE TO POSTOBSTRUCTIVE ATELECTASIS ALTHOUGH INFECTION CANNOT BE EXCLUDED. 2. SUBOPTIMAL CONTRAST FILLING OF THE PULMONARY ARTERIES. NO EMBOLI IN THE LARGER ARTERIAL BRANCHES. THERE IS SIGNIFICANT CONSTRICTION OF THE LEFT MAIN PULMONARY ARTERY AND PROXIMAL BRANCHES DUE TO THE MASS. Abdomen/Pelvis CT 08/27/17 09:32 IMPRESSION: No evidence for intra- abdominal or pelvic metastatic disease is seen. Other findings as noted above. 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
[2017-08-29] MEDS ORDERED: BISACODYL 5 MG TABEC PO ONE (10:30)
[2017-08-29] MEDS: LEVOFLOXACIN 750 MG TABLET PO SCH (10:45)
[2017-08-29] MEDS: OXYCODONE HCL SR 10 MG TABLET PO SCH ×2 (10:45→22:14)
--- NOTE | 2017-08-29 13:44 | PDOC PROGRESS REPORT ---
Subjective Progress Note for:: 08/29/17 Subjective:: 61 yr old gentleman with a [id number] smoking history presented to the hospital on August 26 with a two-week history of worsening shortness of breath and dyspnea with exertion associated with left-sided chest pain. He reported a 5 pound weight loss over the past 1 month with cough and purulent expectoration. He denied hemoptysis. CT angiogram of the chest showed a large left sided hilar lung mass measuring approximately 8 cm. Pleural based nodules were also seen. CT of the abdomen and pelvis was unremarkable. Bone scan was negative for metastatic disease. Plan is for a bronchoscopic biopsy on August 30. Complaints of abdominal discomfort, bloating and constipation. C/o hoarseness of voice and L upper chest wall and back pain x 2 weeks. Analgesics ordered- Oxycodone prn, oxycontin BID and IV Morphine prn. Reason For Visit: LUNG MASS,CHEST PAIN,COPD Physical Exam Vital Signs: Temp Pulse Resp BP Pulse Ox 98.2 F 86 16 123/69 98 08/29/17 11:31 08/29/17 11:31 08/29/17 11:31 08/29/17 11:31 08/29/17 11:31 Intake & Output 08/28/17 08/29/17 08/30/17 06:59 06:59 06:59 Intake Total 1509 1566 Output Total 300 Balance 1509 1266 Weight 56.5 kg 56.4 kg General appearance: PRESENT: mild distress Eye exam: PRESENT: PERRLA Ear exam: PRESENT: normal external ear exam Mouth exam: PRESENT: moist Neck exam: ABSENT: tracheal deviation Respiratory exam: PRESENT: rhonchi, symmetrical. ABSENT: accessory muscle use Cardiovascular exam: PRESENT: RRR Vascular exam: ABSENT: pallor GI/Abdominal exam: PRESENT: normal bowel sounds, soft. ABSENT: tenderness Rectal exam: PRESENT: deferred Extremities exam: ABSENT: calf tenderness, pedal edema Neurological exam: PRESENT: alert, awake, oriented to person, oriented to place , oriented to time, oriented to situation Psychiatric exam: PRESENT: normal mood Skin exam: ABSENT: rash, skin tears Results Laboratory Results: 08/28/17 14:42 08/28/17 14:42 08/28/17 08/28/17 14:42 14:42 WBC 15.3 H RBC 3.85 L Hgb 12.1 L Hct 34.2 L MCV 89 MCH 31.3 MCHC 35.3 RDW 12.6 Plt Count 546 H Creatinine 0.82 Est GFR ( Amer) > 60 Est GFR (Non-Af Amer) > 60 Impressions: Chest X-Ray 08/26/17 12:47 IMPRESSION: ILL-DEFINED VAGUELY NODULAR OPACITIES. THESE COULD REPRESENT PLEURAL PLAQUES OR PARENCHYMAL NODULES. RECOMMEND FOLLOW-UP CT OF THE CHEST. Chest/Abdomen CTA 08/26/17 13:53 IMPRESSION: 1. VERY LARGE MASS IN THE LEFT HILUM AND MEDIASTINUM DESCRIBED CONSISTENT WITH MALIGNANCY, EITHER PRIMARY TUMOR OR METASTATIC LYMPH NODES. THERE ARE ALSO SEVERAL PULMONARY MASSES AND PLEURAL-BASED MASSES CONSISTENT WITH METASTASES. SLIGHTLY HAZY GROUND-GLASS APPEARANCE OF THE LEFT LOWER LOBE PROBABLY DUE TO POSTOBSTRUCTIVE ATELECTASIS ALTHOUGH INFECTION CANNOT BE EXCLUDED. 2. SUBOPTIMAL CONTRAST FILLING OF THE PULMONARY ARTERIES. NO EMBOLI IN THE LARGER ARTERIAL BRANCHES. THERE IS SIGNIFICANT CONSTRICTION OF THE LEFT MAIN PULMONARY ARTERY AND PROXIMAL BRANCHES DUE TO THE MASS. Abdomen/Pelvis CT 08/27/17 09:32 IMPRESSION: No evidence for intra- abdominal or pelvic metastatic disease is seen. Other findings as noted above. Body Scan Nuclear Medicine 08/27/17 11:09 IMPRESSION: No bone scan evidence of bony metastatic disease Assessment & Plan - Diagnosis (1) Lung cancer Qualifiers: Laterality: left Lung location: hilum of lung Qualified Code(s): C34.02 - Malignant neoplasm of left main bronchus Is this a current diagnosis for this admission?: Yes Plan: Plan for bronchoscopy and biopsy on 08/30 (2) Tobacco dependence Is this a current diagnosis for this admission?: Yes Plan: Nicotine patch (3) COPD (chronic obstructive pulmonary disease) Qualifiers: Chronic bronchitis type: unspecified Is this a current diagnosis for this admission?: Yes Plan: Neb treatment, IV steroids (4) Back pain Is this a current diagnosis for this admission?: Yes Plan: Due to lung mass- analgesics prn. (5) Constipation Is this a current diagnosis for this admission?: Yes Plan: Stool softeners and laxatives - Time Time Spent with patient: 25-34 minutes
[2017-08-29] MEDS: SENNOSIDES/DOCUSATE 8.6-50 MG 1 EACH TABLET PO SCH (22:14)
[2017-08-29] MEDS: MORPHINE SULFATE 10 MG/ML INJ IV PRN (23:17)
--- NOTE | 2017-08-30 01:35 | RADIOLOGY REPORT (SQ) ---
EXAM DESCRIPTION: CHEST SINGLE VIEW CLINICAL HISTORY: 61 years Male, S/P [facility] COMPARISON: None. NUMBER OF VIEWS/TECHNIQUE: 1/AP LIMITATIONS: As below. FINDINGS: Moderate airspace opacity of the left hilum, asymmetric lung volume, left more than right, skin fold pattern of the right upper hemithorax, indeterminate 3.4 cm opacity of the lateral right lower hemithorax, normal cardiac silhouette with leftward shift. IMPRESSION: Bilateral opacities including a large left hilar mass. Skinfold pattern on the right decreases sensitivity-specificity.
[2017-08-30] MEDS: IPRATROPIUM/ALBUTEROL 0.5-2.5 MG/3 ML AMPUL NEB SCH ×4 (02:17→19:26)
[2017-08-30] MEDS: LANSOPRAZOLE 15 MG TAB.RAP.DR PO SCH (07:03)
--- NOTE | 2017-08-30 11:41 | PDOC PROGRESS REPORT ---
Subjective Progress Note for:: 08/30/17 Subjective:: Planes of coughing up creation green sputum bronchoscopy is not until Wednesday 1 PM resumed diet Reason For Visit: LUNG MASS,CHEST PAIN,COPD Physical Exam Vital Signs: Temp Pulse Resp BP Pulse Ox 98.0 F 89 16 118/73 98 08/30/17 08:06 08/30/17 08:06 08/30/17 08:06 08/30/17 08:06 08/30/17 08:06 Intake & Output 08/29/17 08/30/17 08/31/17 06:59 06:59 06:59 Intake Total 1566 1340 Output Total 300 0 Balance 1266 1340 Weight 56.4 kg 57.9 kg General appearance: PRESENT: no acute distress, cooperative, disheveled, thin Head exam: PRESENT: atraumatic, normocephalic Eye exam: PRESENT: conjunctiva pale, EOMI. ABSENT: nystagmus, periorbital swelling, scleral icterus Mouth exam: PRESENT: dry mucosa, neck supple, tongue midline Neck exam: ABSENT: carotid bruit, JVD, lymphadenopathy, thyromegaly, tracheal deviation, tracheostomy Respiratory exam: PRESENT: decreased breath sounds, prolonged expiratory phas, rhonchi, symmetrical, unlabored. ABSENT: stridor Cardiovascular exam: PRESENT: RRR, +S1, +S2 Pulses: PRESENT: normal radial pulses GI/Abdominal exam: PRESENT: diminished bowel sounds, soft Extremities exam: ABSENT: clubbing, joint swelling, pedal edema Musculoskeletal exam: ABSENT: ambulatory, deformity, dislocation Neurological exam: ABSENT: awake, oriented to person Skin exam: PRESENT: dry, warm Results Laboratory Results: 08/28/17 14:42 08/28/17 14:42 Impressions: Chest/Abdomen CTA 08/26/17 13:53 IMPRESSION: 1. VERY LARGE MASS IN THE LEFT HILUM AND MEDIASTINUM DESCRIBED CONSISTENT WITH MALIGNANCY, EITHER PRIMARY TUMOR OR METASTATIC LYMPH NODES. THERE ARE ALSO SEVERAL PULMONARY MASSES AND PLEURAL-BASED MASSES CONSISTENT WITH METASTASES. SLIGHTLY HAZY GROUND-GLASS APPEARANCE OF THE LEFT LOWER LOBE PROBABLY DUE TO POSTOBSTRUCTIVE ATELECTASIS ALTHOUGH INFECTION CANNOT BE EXCLUDED. 2. SUBOPTIMAL CONTRAST FILLING OF THE PULMONARY ARTERIES. NO EMBOLI IN THE LARGER ARTERIAL BRANCHES. THERE IS SIGNIFICANT CONSTRICTION OF THE LEFT MAIN PULMONARY ARTERY AND PROXIMAL BRANCHES DUE TO THE MASS. Abdomen/Pelvis CT 08/27/17 09:32 IMPRESSION: No evidence for intra- abdominal or pelvic metastatic disease is seen. Other findings as noted above. Body Scan Nuclear Medicine 08/27/17 11:09 IMPRESSION: No bone scan evidence of bony metastatic disease Chest X-Ray 08/30/17 00:59 IMPRESSION: Bilateral opacities including a large left hilar mass. Skinfold pattern on the right decreases sensitivity-specificity. Assessment & Plan - Diagnosis (1) COPD (chronic obstructive pulmonary disease) Qualifiers: Chronic bronchitis type: unspecified Is this a current diagnosis for this admission?: Yes Plan: Continue bronchodilators as you have initiated (2) Lung mass Is this a current diagnosis for this admission?: Yes Plan: Currently scheduled for tomorrow August 31 1 PM
--- NOTE | 2017-08-30 12:16 | PDOC PROGRESS REPORT ---
Subjective Progress Note for:: 08/30/17 Subjective:: 61 yr old gentleman with a [id number] smoking history presented to the hospital on August 26 with a two-week history of worsening shortness of breath and dyspnea with exertion associated with left-sided chest pain. He reported hoarseness of voice and L upper chest wall and back pain x 2 weeks. 5 pound weight loss over the past 1 month with cough and purulent expectoration. He denied hemoptysis. CT angiogram of the chest showed a large left sided hilar lung mass measuring approximately 8 cm. Pleural based nodules were also seen. CT of the abdomen and pelvis was unremarkable. Bone scan was negative for metastatic disease. Pain is now better controlled with Oxycontin and Oxycodone prn Bronchoscopy planned for 08/31/17. Reason For Visit: LUNG MASS,CHEST PAIN,COPD Physical Exam Vital Signs: Temp Pulse Resp BP Pulse Ox 98.1 F 102 H 18 118/73 95 08/30/17 10:59 08/30/17 10:59 08/30/17 10:59 08/30/17 10:59 08/30/17 10:59 Intake & Output 08/29/17 08/30/17 08/31/17 06:59 06:59 06:59 Intake Total 1566 1340 590 Output Total 300 0 Balance 1266 1340 590 Weight 56.4 kg 57.9 kg General appearance: PRESENT: no acute distress, thin Head exam: PRESENT: normocephalic Eye exam: ABSENT: scleral icterus Ear exam: PRESENT: normal external ear exam Mouth exam: PRESENT: neck supple Respiratory exam: PRESENT: rhonchi, symmetrical, unlabored Cardiovascular exam: PRESENT: RRR GI/Abdominal exam: PRESENT: normal bowel sounds, soft. ABSENT: tenderness Rectal exam: PRESENT: deferred Extremities exam: ABSENT: calf tenderness, pedal edema Neurological exam: PRESENT: alert, awake, oriented to person, oriented to place , oriented to time Psychiatric exam: PRESENT: normal mood Results Laboratory Results: 08/28/17 14:42 08/28/17 14:42 Impressions: Chest/Abdomen CTA 08/26/17 13:53 IMPRESSION: 1. VERY LARGE MASS IN THE LEFT HILUM AND MEDIASTINUM DESCRIBED CONSISTENT WITH MALIGNANCY, EITHER PRIMARY TUMOR OR METASTATIC LYMPH NODES. THERE ARE ALSO SEVERAL PULMONARY MASSES AND PLEURAL-BASED MASSES CONSISTENT WITH METASTASES. SLIGHTLY HAZY GROUND-GLASS APPEARANCE OF THE LEFT LOWER LOBE PROBABLY DUE TO POSTOBSTRUCTIVE ATELECTASIS ALTHOUGH INFECTION CANNOT BE EXCLUDED. 2. SUBOPTIMAL CONTRAST FILLING OF THE PULMONARY ARTERIES. NO EMBOLI IN THE LARGER ARTERIAL BRANCHES. THERE IS SIGNIFICANT CONSTRICTION OF THE LEFT MAIN PULMONARY ARTERY AND PROXIMAL BRANCHES DUE TO THE MASS. Abdomen/Pelvis CT 08/27/17 09:32 IMPRESSION: No evidence for intra- abdominal or pelvic metastatic disease is seen. Other findings as noted above. Body Scan Nuclear Medicine 08/27/17 11:09 IMPRESSION: No bone scan evidence of bony metastatic disease Chest X-Ray 08/30/17 00:59 IMPRESSION: Bilateral opacities including a large left hilar mass. Skinfold pattern on the right decreases sensitivity-specificity. Assessment & Plan - Diagnosis (1) Lung cancer Qualifiers: Laterality: left Lung location: hilum of lung Qualified Code(s): C34.02 - Malignant neoplasm of left main bronchus Is this a current diagnosis for this admission?: Yes Plan: Plan for bronchoscopy and biopsy on 08/31/17 (2) Tobacco dependence Is this a current diagnosis for this admission?: Yes Plan: Nicotine patch (3) COPD (chronic obstructive pulmonary disease) Qualifiers: Chronic bronchitis type: unspecified Is this a current diagnosis for this admission?: Yes Plan: Neb treatment, IV steroids (4) Back pain Is this a current diagnosis for this admission?: Yes Plan: Due to lung mass- analgesics prn. Oxycontin dose increased for better pain control. (5) Constipation Is this a current diagnosis for this admission?: Yes Plan: Stool softeners and laxatives (6) Acute bronchitis Qualifiers: Bronchitis organism: unspecified organism Qualified Code(s): J20.9 - Acute bronchitis, unspecified Is this a current diagnosis for this admission?: Yes Plan: Continue antibiotics. - Time Time Spent with patient: 25-34 minutes
[2017-08-30] MEDS: GUAIFENESIN 600 MG TABLET.SA PO SCH ×2 (12:31→21:59)
[2017-08-30] MEDS: METHYLPREDNISOLONE INJ 40 MG/1 ML SDV IV SCH ×2 (12:31→21:59)
[2017-08-30] MEDS: LEVOFLOXACIN 750 MG TABLET PO SCH (12:32)
[2017-08-30] MEDS: LACTOBACILLUS ACIDOPHILUS 250 MG TAB PO SCH ×2 (12:32→17:16)
[2017-08-30] MEDS: DOCUSATE SODIUM 100 MG CAPSULE PO SCH ×2 (12:40→17:18)
[2017-08-30] MEDS: MORPHINE SULFATE 10 MG/ML INJ IV PRN ×2 (12:40→22:57)
[2017-08-30] MEDS: NICOTINE 21 MG/24 HR PATCH.TD24 TD SCH (17:18)
[2017-08-30] MEDS: ENOXAPARIN SODIUM INJ 40 MG/0.4 ML DISP.SYRIN SUBCUT SCH (17:18)
[2017-08-30] MEDS: OXYCODONE HCL SR 10 MG TABLET PO SCH (21:59)
[2017-08-30] MEDS: SENNOSIDES/DOCUSATE 8.6-50 MG 1 EACH TABLET PO SCH (21:59)
[2017-08-31] MEDS: IPRATROPIUM/ALBUTEROL 0.5-2.5 MG/3 ML AMPUL NEB SCH ×2 (01:52→07:51)
[2017-08-31] MEDS: LANSOPRAZOLE 15 MG TAB.RAP.DR PO SCH (05:02)
[2017-08-31 07:59] LABS: ALANINE AMINOTRANSFERASE 217 U/L (21-72); ALKALINE PHOSPHATASE 192 U/L (38-126); ANION GAP 14 (5-19); ASPARTATE AMINO TRANSFERASE 113 U/L (17-59); BILIRUBIN,DIRECT 0.3 mg/dL (0.0-0.4); BILIRUBIN,TOTAL 0.5 mg/dL (0.2-1.3); BLOOD UREA NITROGEN 37 mg/dL (7-20); CALCIUM 10.8 mg/dL (8.4-10.2); CARBON DIOXIDE 25 mmol/L (22-30); CHLORIDE 96 mmol/L (98-107); GLUCOSE 128 mg/dL (75-110); PHOSPHORUS 7.5 mg/dL (2.5-4.5); SODIUM 134.7 mmol/L (137-145); TOTAL PROTEIN 6.8 g/dL (6.3-8.2)
--- NOTE | 2017-08-31 08:06 | PDOC PROGRESS REPORT ---
Subjective Progress Note for:: 08/31/17 Subjective:: Bronch planned for 1pm today, NPO currently. Reason For Visit: LUNG MASS,CHEST PAIN,COPD Physical Exam Vital Signs: Temp Pulse Resp BP Pulse Ox 98.1 F 84 18 124/65 97 08/31/17 03:47 08/31/17 07:54 08/31/17 07:54 08/31/17 03:47 08/31/17 03:47 Intake & Output 08/30/17 08/31/17 09/01/17 06:59 06:59 06:59 Intake Total 1540 900 Output Total 0 Balance 1540 900 Weight 57.9 kg 55.3 kg General appearance: PRESENT: no acute distress, well-developed, well-nourished Head exam: PRESENT: atraumatic, normocephalic Eye exam: PRESENT: conjunctiva pink, EOMI, PERRLA. ABSENT: scleral icterus Ear exam: PRESENT: normal external ear exam Mouth exam: PRESENT: moist, tongue midline Neck exam: ABSENT: carotid bruit, JVD, lymphadenopathy, thyromegaly Respiratory exam: PRESENT: clear to auscultation roshni. ABSENT: rales, rhonchi, wheezes Cardiovascular exam: PRESENT: RRR. ABSENT: diastolic murmur, rubs, systolic murmur Pulses: PRESENT: normal dorsalis pedis pul Vascular exam: PRESENT: normal capillary refill GI/Abdominal exam: PRESENT: normal bowel sounds, soft. ABSENT: distended, guarding, mass, organolmegaly, rebound, tenderness Rectal exam: PRESENT: deferred Extremities exam: PRESENT: full ROM. ABSENT: calf tenderness, clubbing, pedal edema Neurological exam: PRESENT: alert, awake, oriented to person, oriented to place , oriented to time, oriented to situation, CN II-XII grossly intact. ABSENT: motor sensory deficit Psychiatric exam: PRESENT: appropriate affect, normal mood. ABSENT: homicidal ideation, suicidal ideation Skin exam: PRESENT: dry, intact, warm. ABSENT: cyanosis, rash Results Laboratory Results: 08/28/17 14:42 08/31/17 03:51 Sodium Cancelled Potassium Cancelled Chloride Cancelled Carbon Dioxide Cancelled Anion Gap Cancelled BUN Cancelled Creatinine Cancelled Est GFR ( Amer) Cancelled Est GFR (Non-Af Amer) Cancelled Glucose Cancelled Calcium Cancelled Phosphorus Cancelled Magnesium Cancelled Total Bilirubin Cancelled AST Cancelled ALT Cancelled Alkaline Phosphatase Cancelled Total Protein Cancelled Albumin Cancelled Impressions: Chest/Abdomen CTA 08/26/17 13:53 IMPRESSION: 1. VERY LARGE MASS IN THE LEFT HILUM AND MEDIASTINUM DESCRIBED CONSISTENT WITH MALIGNANCY, EITHER PRIMARY TUMOR OR METASTATIC LYMPH NODES. THERE ARE ALSO SEVERAL PULMONARY MASSES AND PLEURAL-BASED MASSES CONSISTENT WITH METASTASES. SLIGHTLY HAZY GROUND-GLASS APPEARANCE OF THE LEFT LOWER LOBE PROBABLY DUE TO POSTOBSTRUCTIVE ATELECTASIS ALTHOUGH INFECTION CANNOT BE EXCLUDED. 2. SUBOPTIMAL CONTRAST FILLING OF THE PULMONARY ARTERIES. NO EMBOLI IN THE LARGER ARTERIAL BRANCHES. THERE IS SIGNIFICANT CONSTRICTION OF THE LEFT MAIN PULMONARY ARTERY AND PROXIMAL BRANCHES DUE TO THE MASS. Abdomen/Pelvis CT 08/27/17 09:32 IMPRESSION: No evidence for intra- abdominal or pelvic metastatic disease is seen. Other findings as noted above. Body Scan Nuclear Medicine 08/27/17 11:09 IMPRESSION: No bone scan evidence of bony metastatic disease Chest X-Ray 08/30/17 00:59 IMPRESSION: Bilateral opacities including a large left hilar mass. Skinfold pattern on the right decreases sensitivity-specificity. Assessment & Plan - Diagnosis (1) Lung mass Is this a current diagnosis for this admission?: Yes Plan: Bronch today, otherwise fully staged, will see pt as oupt after path back. 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
[2017-08-31] MEDS ORDERED: SODIUM POLYSTYRENE SULFONATE 15 GM/60 ML PO ONE (08:27)
--- NOTE | 2017-08-31 09:25 | EKG REPORT ---
SEVERITY:- OTHERWISE NORMAL ECG - SINUS TACHYCARDIA : Confirmed by: Gissell Marie 31-Aug-2017 09:24:30
[2017-08-31] MEDS ORDERED: CALCIUM GLUCONATE 1000 MG/10 ML INJ IV ONE (09:32)
[2017-08-31] MEDS ORDERED: DEXTROSE 50%-WATER 25 GM/50 ML DISP.SYRIN IV ONE (09:33)
[2017-08-31] MEDS ORDERED: INSULIN REG, HUMAN 100 UNIT/ML 3 ML VIAL (PYX) IV ONE (09:34)
[2017-08-31] MEDS: ONDANSETRON HCL INJ/PF 4 MG/2 ML SDV IV PRN (09:35)
[2017-08-31] MEDS: NORMAL SALINE 1000 ML 1,000 ML IV PRN ×2 (09:35→21:46)
[2017-08-31] MEDS: NICOTINE 21 MG/24 HR PATCH.TD24 TD SCH (09:40)
[2017-08-31] MEDS: DOCUSATE SODIUM 100 MG CAPSULE PO SCH ×2 (09:40→17:19)
[2017-08-31] MEDS: ENOXAPARIN SODIUM INJ 40 MG/0.4 ML DISP.SYRIN SUBCUT SCH (09:41)
[2017-08-31] MEDS ORDERED: METHYLPREDNISOLONE INJ 40 MG/1 ML SDV IV SCH (10:00)
[2017-08-31] MEDS ORDERED: LEVOFLOXACIN 750 MG TABLET PO SCH (10:00)
[2017-08-31] MEDS: LACTOBACILLUS ACIDOPHILUS 250 MG TAB PO SCH ×2 (10:27→17:24)
[2017-08-31] MEDS: GUAIFENESIN 600 MG TABLET.SA PO SCH (10:27)
[2017-08-31] MEDS: OXYCODONE HCL SR 10 MG TABLET PO SCH ×2 (10:28→21:47)
[2017-08-31] MEDS ORDERED: METOCLOPRAMIDE HCL INJ/PF 10 MG/2 ML SDV IV ONE (12:00)
[2017-08-31 12:38] LABS: ANION GAP 14 (5-19); BLOOD UREA NITROGEN 38 mg/dL (7-20); CALCIUM 11.3 mg/dL (8.4-10.2); CARBON DIOXIDE 24 mmol/L (22-30); CHLORIDE 99 mmol/L (98-107); GLUCOSE 96 mg/dL (75-110); SODIUM 136.9 mmol/L (137-145)
[2017-08-31] MEDS: MORPHINE SULFATE 10 MG/ML INJ IV PRN ×2 (17:24→21:49)
--- NOTE | 2017-08-31 17:42 | PDOC PROGRESS REPORT ---
Subjective Progress Note for:: 08/31/17 Subjective:: 61 yr old gentleman with a [id number] smoking history presented to the hospital on August 26 with a two-week history of worsening shortness of breath and dyspnea with exertion associated with left-sided chest pain. He reported hoarseness of voice and L upper chest wall and back pain x 2 weeks. 5 pound weight loss over the past 1 month with cough and purulent expectoration. He denied hemoptysis. CT angiogram of the chest showed a large left sided hilar lung mass measuring approximately 8 cm. Pleural based nodules were also seen. CT of the abdomen and pelvis was unremarkable. Bone scan was negative for metastatic disease. Pain is now better controlled with Oxycontin and Oxycodone prn Bronchoscopy planned for a but was canceled because the patient was hyperkalemic and was also having episodes of tachycardia and severe nausea. He was treated with IV calcium intravenous insulin and dextrose and also 1 dose of Kayexalate. Repeat potassium was 5. All nonessential medications which were possibly causing nausea have been discontinued. Reason For Visit: LUNG MASS,CHEST PAIN,COPD Physical Exam Vital Signs: Temp Pulse Resp BP Pulse Ox 98.2 F 102 H 18 126/73 H 98 08/31/17 16:00 08/31/17 16:00 08/31/17 16:00 08/31/17 16:00 08/31/17 16:00 Intake & Output 08/30/17 08/31/17 09/01/17 06:59 06:59 06:59 Intake Total 1540 900 Output Total 0 Balance 1540 900 Weight 57.9 kg 55.3 kg General appearance: PRESENT: no acute distress Head exam: PRESENT: normocephalic Eye exam: ABSENT: scleral icterus Ear exam: PRESENT: normal external ear exam Neck exam: ABSENT: tracheal deviation Respiratory exam: PRESENT: rhonchi, symmetrical, unlabored Cardiovascular exam: PRESENT: RRR GI/Abdominal exam: PRESENT: normal bowel sounds, soft. ABSENT: tenderness Rectal exam: PRESENT: deferred Neurological exam: PRESENT: alert, awake, oriented to person, oriented to place Psychiatric exam: PRESENT: appropriate affect Skin exam: ABSENT: petechiae Results Laboratory Results: 08/28/17 14:42 08/31/17 11:52 08/31/17 08/31/17 08/31/17 03:51 06:55 11:52 Sodium Cancelled 134.7 L 136.9 L Potassium Cancelled 6.0 H* 5.0 D Chloride Cancelled 96 L 99 Carbon Dioxide Cancelled 25 24 Anion Gap Cancelled 14 14 BUN Cancelled 37 H 38 H Creatinine Cancelled 1.12 1.18 Est GFR ( Amer) Cancelled > 60 > 60 Est GFR (Non-Af Amer) Cancelled > 60 > 60 Glucose Cancelled 128 H 96 Calcium Cancelled 10.8 H 11.3 H Phosphorus Cancelled 7.5 H Magnesium Cancelled 2.4 H Total Bilirubin Cancelled 0.5 AST Cancelled 113 H ALT Cancelled 217 H Alkaline Phosphatase Cancelled 192 H Total Protein Cancelled 6.8 Albumin Cancelled 4.0 08/31/17 06:55 NT-Pro-B Natriuret Pep 147 Impressions: Chest/Abdomen CTA 08/26/17 13:53 IMPRESSION: 1. VERY LARGE MASS IN THE LEFT HILUM AND MEDIASTINUM DESCRIBED CONSISTENT WITH MALIGNANCY, EITHER PRIMARY TUMOR OR METASTATIC LYMPH NODES. THERE ARE ALSO SEVERAL PULMONARY MASSES AND PLEURAL-BASED MASSES CONSISTENT WITH METASTASES. SLIGHTLY HAZY GROUND-GLASS APPEARANCE OF THE LEFT LOWER LOBE PROBABLY DUE TO POSTOBSTRUCTIVE ATELECTASIS ALTHOUGH INFECTION CANNOT BE EXCLUDED. 2. SUBOPTIMAL CONTRAST FILLING OF THE PULMONARY ARTERIES. NO EMBOLI IN THE LARGER ARTERIAL BRANCHES. THERE IS SIGNIFICANT CONSTRICTION OF THE LEFT MAIN PULMONARY ARTERY AND PROXIMAL BRANCHES DUE TO THE MASS. Abdomen/Pelvis CT 08/27/17 09:32 IMPRESSION: No evidence for intra- abdominal or pelvic metastatic disease is seen. Other findings as noted above. Body Scan Nuclear Medicine 08/27/17 11:09 IMPRESSION: No bone scan evidence of bony metastatic disease Chest X-Ray 08/30/17 00:59 IMPRESSION: Bilateral opacities including a large left hilar mass. Skinfold pattern on the right decreases sensitivity-specificity. Assessment & Plan - Diagnosis (1) Lung cancer Qualifiers: Laterality: left Lung location: hilum of lung Qualified Code(s): C34.02 - Malignant neoplasm of left main bronchus Is this a current diagnosis for this admission?: Yes Plan: Plan for bronchoscopy and biopsy when he is stable (2) Tobacco dependence Is this a current diagnosis for this admission?: Yes Plan: Nicotine patch (3) COPD (chronic obstructive pulmonary disease) Qualifiers: Chronic bronchitis type: unspecified Is this a current diagnosis for this admission?: Yes Plan: Neb treatment, IV steroids (4) Back pain Is this a current diagnosis for this admission?: Yes Plan: Due to lung mass- analgesics prn. Oxycontin dose increased for better pain control. (5) Constipation Is this a current diagnosis for this admission?: Yes Plan: Stool softeners and laxatives (6) Acute bronchitis Qualifiers: Bronchitis organism: unspecified organism Qualified Code(s): J20.9 - Acute bronchitis, unspecified Is this a current diagnosis for this admission?: Yes Plan: Improving (7) Hyperkalemia Is this a current diagnosis for this admission?: Yes Plan: Treated with medications, continue to monitor - Time Time Spent with patient: 35 or more minutes
[2017-08-31] MEDS: SENNOSIDES/DOCUSATE 8.6-50 MG 1 EACH TABLET PO SCH (21:47)
[2017-09-01 04:43] LABS: BLOOD UREA NITROGEN 30 mg/dL (7-20); CALCIUM 9.2 mg/dL (8.4-10.2); CARBON DIOXIDE 27 mmol/L (22-30); CHLORIDE 101 mmol/L (98-107); GLUCOSE 92 mg/dL (75-110); POTASSIUM 4.6 mmol/L (3.6-5.0)
[2017-09-01 04:44] LABS: ANION GAP 6 (5-19)
[2017-09-01 04:57] LABS: PHOSPHORUS 4.7 mg/dL (2.5-4.5)
[2017-09-01] MEDS: LANSOPRAZOLE 15 MG TAB.RAP.DR PO SCH (05:51)
[2017-09-01] MEDS: MORPHINE SULFATE 10 MG/ML INJ IV PRN ×3 (08:32→20:42)
[2017-09-01] MEDS ORDERED: NORMAL SALINE 1000 ML 1,000 ML IV PRN (08:44)
[2017-09-01] MEDS: DOCUSATE SODIUM 100 MG CAPSULE PO SCH ×2 (09:40→17:30)
[2017-09-01] MEDS: NICOTINE 21 MG/24 HR PATCH.TD24 TD SCH (09:40)
[2017-09-01] MEDS: ENOXAPARIN SODIUM INJ 40 MG/0.4 ML DISP.SYRIN SUBCUT SCH (10:10)
[2017-09-01] MEDS: OXYCODONE HCL SR 10 MG TABLET PO SCH (10:14)
[2017-09-01] MEDS: LACTOBACILLUS ACIDOPHILUS 250 MG TAB PO SCH ×2 (10:14→17:30)
--- NOTE | 2017-09-01 11:59 | PDOC PROGRESS REPORT ---
Subjective Progress Note for:: 09/01/17 Subjective:: 61 yr old gentleman with a [id number] smoking history presented to the hospital on August 26 with a two-week history of worsening shortness of breath and dyspnea with exertion associated with left-sided chest pain. He reported hoarseness of voice and L upper chest wall and back pain x 2 weeks. 5 pound weight loss over the past 1 month with cough and purulent expectoration. He denied hemoptysis. CT angiogram of the chest showed a large left sided hilar lung mass measuring approximately 8 cm. Pleural based nodules were also seen. CT of the abdomen and pelvis was unremarkable. Bone scan was negative for metastatic disease. Bronchoscopy planned for a but was canceled because the patient was hyperkalemic and was also having episodes of tachycardia and severe nausea. He was treated with IV calcium intravenous insulin and dextrose and also 1 dose of Kayexalate. Repeat potassium was 5. All nonessential medications which were possibly causing nausea have been discontinued and he feels better today. Appetite is fair. Is having regular bowel movements Hyperkalemia resolved. We will stop IV fluids. Pain is relatively well controlled. Reason For Visit: LUNG MASS,CHEST PAIN,COPD Physical Exam Vital Signs: Temp Pulse Resp BP Pulse Ox 98.3 F 81 20 106/59 L 98 09/01/17 07:58 09/01/17 07:58 09/01/17 07:58 09/01/17 07:58 09/01/17 07:58 Intake & Output 08/31/17 09/01/17 09/02/17 06:59 06:59 06:59 Intake Total 900 2950 Balance 900 2950 Weight 55.3 kg 55.3 kg General appearance: PRESENT: thin Head exam: PRESENT: normocephalic Eye exam: PRESENT: PERRLA. ABSENT: scleral icterus Ear exam: PRESENT: normal external ear exam Mouth exam: PRESENT: moist Neck exam: ABSENT: tenderness Respiratory exam: PRESENT: rhonchi, symmetrical, unlabored Cardiovascular exam: PRESENT: RRR GI/Abdominal exam: PRESENT: normal bowel sounds, soft. ABSENT: tenderness Rectal exam: PRESENT: deferred Extremities exam: ABSENT: calf tenderness, pedal edema Neurological exam: PRESENT: alert, awake, oriented to person, oriented to place Psychiatric exam: PRESENT: appropriate affect Skin exam: ABSENT: petechiae Results Laboratory Results: 08/28/17 14:42 09/01/17 03:59 08/31/17 09/01/17 11:52 03:59 Sodium 136.9 L 134.0 L Potassium 5.0 D 4.6 Chloride 99 101 Carbon Dioxide 24 27 Anion Gap 14 6 BUN 38 H 30 H Creatinine 1.18 0.90 Est GFR ( Amer) > 60 > 60 Est GFR (Non-Af Amer) > 60 > 60 Glucose 96 92 Calcium 11.3 H 9.2 Phosphorus 4.7 H D Magnesium 2.1 08/31/17 06:55 NT-Pro-B Natriuret Pep 147 Impressions: Chest/Abdomen CTA 08/26/17 13:53 IMPRESSION: 1. VERY LARGE MASS IN THE LEFT HILUM AND MEDIASTINUM DESCRIBED CONSISTENT WITH MALIGNANCY, EITHER PRIMARY TUMOR OR METASTATIC LYMPH NODES. THERE ARE ALSO SEVERAL PULMONARY MASSES AND PLEURAL-BASED MASSES CONSISTENT WITH METASTASES. SLIGHTLY HAZY GROUND-GLASS APPEARANCE OF THE LEFT LOWER LOBE PROBABLY DUE TO POSTOBSTRUCTIVE ATELECTASIS ALTHOUGH INFECTION CANNOT BE EXCLUDED. 2. SUBOPTIMAL CONTRAST FILLING OF THE PULMONARY ARTERIES. NO EMBOLI IN THE LARGER ARTERIAL BRANCHES. THERE IS SIGNIFICANT CONSTRICTION OF THE LEFT MAIN PULMONARY ARTERY AND PROXIMAL BRANCHES DUE TO THE MASS. Abdomen/Pelvis CT 08/27/17 09:32 IMPRESSION: No evidence for intra- abdominal or pelvic metastatic disease is seen. Other findings as noted above. Body Scan Nuclear Medicine 08/27/17 11:09 IMPRESSION: No bone scan evidence of bony metastatic disease Chest X-Ray 08/30/17 00:59 IMPRESSION: Bilateral opacities including a large left hilar mass. Skinfold pattern on the right decreases sensitivity-specificity. Assessment & Plan - Diagnosis (1) Lung cancer Qualifiers: Laterality: left Lung location: hilum of lung Qualified Code(s): C34.02 - Malignant neoplasm of left main bronchus Is this a current diagnosis for this admission?: Yes Plan: Plan for bronchoscopy and biopsy on 09/02/17 (2) Tobacco dependence Is this a current diagnosis for this admission?: Yes Plan: Nicotine patch (3) COPD (chronic obstructive pulmonary disease) Qualifiers: Chronic bronchitis type: unspecified Is this a current diagnosis for this admission?: Yes Plan: Neb treatments prn (4) Back pain Is this a current diagnosis for this admission?: Yes Plan: Due to lung mass- analgesics prn. Continue Oxycontin (5) Constipation Is this a current diagnosis for this admission?: Yes Plan: Stool softeners and laxatives (6) Acute bronchitis Qualifiers: Bronchitis organism: unspecified organism Qualified Code(s): J20.9 - Acute bronchitis, unspecified Is this a current diagnosis for this admission?: Yes Plan: Improving (7) Hyperkalemia Is this a current diagnosis for this admission?: Yes Plan: Treated with medications, continue to monitor - Time Time Spent with patient: 35 or more minutes
[2017-09-01] MEDS ORDERED: GLUCAGON,HUMAN RECOMB 1 MG INJ SUBCUT PRN (16:53)
[2017-09-01] MEDS ORDERED: DEXTROSE 40% GEL 15 GM TUBE PO PRN ×2 (16:53)
[2017-09-01] MEDS ORDERED: DEXTROSE 50%-WATER 25 GM/50 ML DISP.SYRIN IV PRN ×2 (16:53)
--- NOTE | 2017-09-01 19:24 | XCELERA REPORT ---
[address] [address] Transthoracic Echocardiogram Report Name: RAMEZ ANTONIO Age: 61 yrs Gender: Male : 1955 Patient Status: Inpatient Patient Location: [address] [place] [address] Study Date: 09/01/2017 02:55 PM Height: 68 in Weight: 121 lb BSA: 1.7 m2 Procedure: A complete two-dimensional transthoracic echocardiogram was performed (2D, M-mode, spectral and color flow Doppler). The study was technically adequate with some images being suboptimal in quality. Reason For Study: CP Ordering Physician: EVA LANDERS Performed By: Martha Rapp Interpretation Summary The left ventricular ejection fraction is normal. There is borderline concentric left ventricular hypertrophy. The left ventricle is grossly normal size. LV diastolic function could not be adequately assessed. Wall motion cannot be accurately commented on, but no definite regional wall motion abnormalities noted. The right ventricle is grossly normal size. The right ventricular systolic function is normal. The right atrium is normal in size Borderline left atrial enlargement. There is no mitral valve stenosis. There is a trace to mild amount of mitral regurgitation There is no aortic valve stenosis No aortic regurgitation is present. There is a trace or physiologic amount of tricuspid regurgitation Tricuspid regurgitation jet envelope not well defined to measure RV systolic pressure accurately. The aortic root is not well visualized but is probably normal size. The inferior vena cava appeared normal and decreased > 50% with respiration (RAP 5-10 mmHg) There is no pericardial effusion. MMode/2D Measurements & Calculations RVDd: 3.1 cm LVIDd: 4.8 cm FS: 40.5 % Ao root diam: 2.8 cm IVSd: 0.81 cm LVIDs: 2.9 cm EDV(Teich): 108.3 ml LVPWd: 0.78 cm ESV(Teich): 31.3 ml Ao root area: 6.2 cm2 EF(Teich): 71.1 % Doppler Measurements & Calculations MV E max stephanie: MV dec slope: Ao V2 max: LV V1 max P.6 cm/sec 121.0 cm/sec 3.3 mmHg MV A max stephanie: 445.9 cm/sec2 Ao max PG: LV V1 max: 76.7 cm/sec MV dec time: 5.9 mmHg 90.4 cm/sec MV E/A: 1.1 0.18 sec PA V2 max: PI end-d stephanie: TR max stephanie: 97.1 cm/sec 139.9 cm/sec 229.2 cm/sec PA max PG: TR max P.8 mmHg 21.0 mmHg Left Ventricle The left ventricle is grossly normal size. There is borderline concentric left ventricular hypertrophy. The left ventricular ejection fraction is normal. LV diastolic function could not be adequately assessed. Wall motion cannot be accurately commented on, but no definite regional wall motion abnormalities noted. Right Ventricle The right ventricle is grossly normal size. There is normal right ventricular wall thickness. The right ventricular systolic function is normal. Atria The right atrium is normal in size. Borderline left atrial enlargement. Interarterial septum not well visualized and not well dopplered. Cannot comment on ASD/PFO presence. Mitral Valve The mitral valve leaflets are sclerotic, but show no functional abnormalities. There is no mitral valve stenosis. There is a trace to mild amount of mitral regurgitation. Aortic Valve The aortic valve is grossly normal. There is no aortic valve stenosis. No aortic regurgitation is present. Tricuspid Valve The tricuspid valve is not well visualized, but is grossly normal. There is no tricuspid stenosis. There is a trace or physiologic amount of tricuspid regurgitation. Tricuspid regurgitation jet envelope not well defined to measure RV systolic pressure accurately. Pulmonic Valve The pulmonic valve is not well visualized. Great Vessels The aortic root is not well visualized but is probably normal size. The inferior vena cava appeared normal and decreased > 50% with respiration (RAP 5-10 mmHg). Effusions There is no pericardial effusion. : EVA LANDERS > Gissell Marie
[2017-09-01] MEDS: ONDANSETRON HCL INJ/PF 4 MG/2 ML SDV IV PRN (20:41)
[2017-09-02] MEDS: OXYCODONE HCL SR 10 MG TABLET PO SCH ×3 (00:22→21:31)
[2017-09-02] MEDS: SENNOSIDES/DOCUSATE 8.6-50 MG 1 EACH TABLET PO SCH ×2 (00:23→21:32)
[2017-09-02] MEDS: LANSOPRAZOLE 15 MG TAB.RAP.DR PO SCH (04:48)
[2017-09-02 05:05] LABS: ANION GAP 11 (5-19); BLOOD UREA NITROGEN 27 mg/dL (7-20); CALCIUM 9.7 mg/dL (8.4-10.2); CARBON DIOXIDE 26 mmol/L (22-30); CHLORIDE 96 mmol/L (98-107); GLUCOSE 102 mg/dL (75-110); POTASSIUM 4.7 mmol/L (3.6-5.0); SODIUM 133.4 mmol/L (137-145)
[2017-09-02] MEDS ORDERED: LIDOCAINE 2% INJ (20 MG/ML) 20 ML MDV ONE ×2 (07:35→08:20)
[2017-09-02] MEDS ORDERED: EPINEPHRINE INJ 1 MG/10 ML DISP.SYRIN ONE (07:36)
[2017-09-02] MEDS ORDERED: EPINEPHRINE INJ/PF 1 MG/1 ML AMPULE ONE (07:37)
[2017-09-02] MEDS ORDERED: PROPOFOL INJ 200 MG/20 ML VIAL IV ONE (07:46)
[2017-09-02] MEDS ORDERED: MIDAZOLAM 2 MG/2 ML INJ ONE (07:46)
[2017-09-02] MEDS ORDERED: KETAMINE HCL INJ 500 MG/10 ML VIAL ONE (07:46)
[2017-09-02] MEDS ORDERED: FENTANYL CITRATE INJ/PF 100 MCG/2 ML AMPUL ONE (07:46)
[2017-09-02] MEDS ORDERED: LEVOFLOXACIN 500 MG TABLET PO SCH (08:15)
[2017-09-02] MEDS ORDERED: LIDOCAINE 2% INJ-PF (20 MG/ML) 10 ML AMPUL ONE (08:17)
[2017-09-02] MEDS ORDERED: LIDOCAINE 4% INJ/PF (40 MG/ML) 5 ML AMPUL ONE (08:20)
[2017-09-02] MEDS ORDERED: ALBUTEROL SULFATE 0.083% NEB 2.5 MG/3 ML AMPUL NEB ONE (08:26)
[2017-09-02] MEDS ORDERED: DEXMEDETOMIDINE INJ 80 MCG/20 ML VIAL IV ONE (08:40)
[2017-09-02] MEDS: DOCUSATE SODIUM 100 MG CAPSULE PO SCH ×2 (09:09→18:42)
[2017-09-02] MEDS: NICOTINE 21 MG/24 HR PATCH.TD24 TD SCH (09:09)
[2017-09-02] MEDS: ENOXAPARIN SODIUM INJ 40 MG/0.4 ML DISP.SYRIN SUBCUT SCH (09:09)
--- NOTE | 2017-09-02 10:17 | RADIOLOGY REPORT (SQ) ---
EXAM DESCRIPTION: CHEST SINGLE VIEW COMPLETED DATE/TIME: 09/02/2017 10:02 am REASON FOR STUDY: L lung biopsy COMPARISON: 08/26/2017 NUMBER OF VIEWS: One view. TECHNIQUE: Single frontal radiographic image of the chest acquired. LIMITATIONS: None. FINDINGS: LUNGS AND PLEURA: Known left hilar mass and pleural and pulmonary nodules. Volume loss on the left. Increasing airspace disease left lower lobe. No pneumothorax. MEDIASTINUM AND HEART: Stable heart size and mediastinal structures. BONY STRUCTURES: No acute findings. HARDWARE: None. OTHER: No other significant finding. IMPRESSION: No pneumothorax. Increasing atelectasis versus developing aspiration or infection left lower lobe. TECHNICAL DOCUMENTATION: JOB ID: [id number] Reading location - IP/workstation name: [email or web address]
--- NOTE | 2017-09-02 10:47 | RADIOLOGY REPORT (SQ) ---
EXAM DESCRIPTION: NO CHG FLUORO; CHEST SINGLE VIEW COMPLETED DATE/TIME: 09/02/2017 10:33 am REASON FOR STUDY: BRONCHOSCOPY ASST WITH BIOPSY LEFT LUNG ASST WITH FLUORO IN OR COMPARISON: None. FLUOROSCOPY TIME: 1.6 minutes 15 images saved to PACS. TECHNIQUE: Intra-operative images acquired during surgical procedure to evaluate progress. NUMBER OF IMAGES: 15 LIMITATIONS: None. FINDINGS: Selected images from bronchoscopy with deployment of brush biopsy apparatus in the left jeevan ng. IMPRESSION: IMAGE(S) OBTAINED DURING PROCEDURE. COMMENT: Quality ID 145: Final reports for procedures using fluoroscopy that document radiation exp osure indices, or exposure time and number of fluorographic images (if radiation exposure indices are not available) Please consult full operative report of the attending physician for description of the procedure. TECHNICAL DOCUMENTATION: JOB ID: [id number] [employer]- All Rights Reserved Reading location - IP/workstation name: [email or web address]
--- NOTE | 2017-09-02 10:47 | RADIOLOGY REPORT (SQ) ---
EXAM DESCRIPTION: NO CHG FLUORO; CHEST SINGLE VIEW COMPLETED DATE/TIME: 09/02/2017 10:33 am REASON FOR STUDY: BRONCHOSCOPY ASST WITH BIOPSY LEFT LUNG ASST WITH FLUORO IN OR COMPARISON: None. FLUOROSCOPY TIME: 1.6 minutes 15 images saved to PACS. TECHNIQUE: Intra-operative images acquired during surgical procedure to evaluate progress. NUMBER OF IMAGES: 15 LIMITATIONS: None. FINDINGS: Selected images from bronchoscopy with deployment of brush biopsy apparatus in the left jeevan ng. IMPRESSION: IMAGE(S) OBTAINED DURING PROCEDURE. COMMENT: Quality ID 145: Final reports for procedures using fluoroscopy that document radiation exp osure indices, or exposure time and number of fluorographic images (if radiation exposure indices are not available) Please consult full operative report of the attending physician for description of the procedure. TECHNICAL DOCUMENTATION: JOB ID: [id number] [employer]- All Rights Reserved Reading location - IP/workstation name: [email or web address]
--- NOTE | 2017-09-02 11:27 | PDOC PROGRESS REPORT ---
Subjective Progress Note for:: 09/02/17 Subjective:: 61 yr old gentleman with a [id number] smoking history presented to the hospital on August 26 with a two-week history of worsening shortness of breath and dyspnea with exertion associated with left-sided chest pain. He reported hoarseness of voice and L upper chest wall and back pain x 2 weeks. 5 pound weight loss over the past 1 month with cough and purulent expectoration. He denied hemoptysis. CT angiogram of the chest showed a large left sided hilar lung mass measuring approximately 8 cm. Pleural based nodules were also seen. CT of the abdomen and pelvis was unremarkable. Bone scan was negative for metastatic disease. Bronchoscopy done today. No complaibts other than some blood tinged sputum. Reason For Visit: LUNG MASS,CHEST PAIN,COPD Physical Exam Vital Signs: Temp Pulse Resp BP Pulse Ox 98.4 F 94 16 97/48 L 96 09/02/17 10:46 09/02/17 10:46 09/02/17 10:46 09/02/17 10:46 09/02/17 10:46 Intake & Output 09/01/17 09/02/17 09/03/17 06:59 06:59 06:59 Intake Total 2950 590 600 Output Total 230 5 Balance 2950 360 595 Weight 55.3 kg 55.2 kg General appearance: PRESENT: no acute distress Head exam: PRESENT: normocephalic Eye exam: ABSENT: scleral icterus Ear exam: PRESENT: normal external ear exam Mouth exam: PRESENT: moist Neck exam: ABSENT: tenderness Respiratory exam: PRESENT: rhonchi, symmetrical Cardiovascular exam: PRESENT: RRR GI/Abdominal exam: PRESENT: normal bowel sounds, soft. ABSENT: tenderness Rectal exam: PRESENT: deferred Extremities exam: ABSENT: calf tenderness, pedal edema Neurological exam: PRESENT: alert, awake, oriented to person, oriented to place , oriented to time Psychiatric exam: PRESENT: appropriate affect Skin exam: ABSENT: petechiae Results Laboratory Results: 08/28/17 14:42 09/02/17 04:30 09/02/17 04:30 Sodium 133.4 L Potassium 4.7 Chloride 96 L Carbon Dioxide 26 Anion Gap 11 BUN 27 H Creatinine 0.91 Est GFR ( Amer) > 60 Est GFR (Non-Af Amer) > 60 Glucose 102 Calcium 9.7 08/31/17 06:55 NT-Pro-B Natriuret Pep 147 Impressions: Chest/Abdomen CTA 08/26/17 13:53 IMPRESSION: 1. VERY LARGE MASS IN THE LEFT HILUM AND MEDIASTINUM DESCRIBED CONSISTENT WITH MALIGNANCY, EITHER PRIMARY TUMOR OR METASTATIC LYMPH NODES. THERE ARE ALSO SEVERAL PULMONARY MASSES AND PLEURAL-BASED MASSES CONSISTENT WITH METASTASES. SLIGHTLY HAZY GROUND-GLASS APPEARANCE OF THE LEFT LOWER LOBE PROBABLY DUE TO POSTOBSTRUCTIVE ATELECTASIS ALTHOUGH INFECTION CANNOT BE EXCLUDED. 2. SUBOPTIMAL CONTRAST FILLING OF THE PULMONARY ARTERIES. NO EMBOLI IN THE LARGER ARTERIAL BRANCHES. THERE IS SIGNIFICANT CONSTRICTION OF THE LEFT MAIN PULMONARY ARTERY AND PROXIMAL BRANCHES DUE TO THE MASS. Abdomen/Pelvis CT 08/27/17 09:32 IMPRESSION: No evidence for intra- abdominal or pelvic metastatic disease is seen. Other findings as noted above. Body Scan Nuclear Medicine 08/27/17 11:09 IMPRESSION: No bone scan evidence of bony metastatic disease Chest X-Ray 09/02/17 00:00 IMPRESSION: IMAGE(S) OBTAINED DURING PROCEDURE. Fluoroscopy 09/02/17 00:00 IMPRESSION: IMAGE(S) OBTAINED DURING PROCEDURE. Assessment & Plan - Diagnosis (1) Lung cancer Qualifiers: Laterality: left Lung location: hilum of lung Qualified Code(s): C34.02 - Malignant neoplasm of left main bronchus Is this a current diagnosis for this admission?: Yes Plan: awaiting pathology results (2) Tobacco dependence Is this a current diagnosis for this admission?: Yes Plan: Nicotine patch (3) COPD (chronic obstructive pulmonary disease) Qualifiers: Chronic bronchitis type: unspecified Is this a current diagnosis for this admission?: Yes Plan: Neb treatments prn (4) Back pain Is this a current diagnosis for this admission?: Yes Plan: Due to lung mass- analgesics prn. Continue Oxycontin (5) Constipation Is this a current diagnosis for this admission?: Yes Plan: Stool softeners and laxatives (6) Acute bronchitis Qualifiers: Bronchitis organism: unspecified organism Qualified Code(s): J20.9 - Acute bronchitis, unspecified Is this a current diagnosis for this admission?: Yes Plan: Improved. Complete a course of antibiotics (7) Hyperkalemia Is this a current diagnosis for this admission?: Yes Plan: Treated with medications, continue to monitor - Time Time Spent with patient: 35 or more minutes
[2017-09-02] MEDS: LACTOBACILLUS ACIDOPHILUS 250 MG TAB PO SCH ×2 (12:14→18:47)
[2017-09-02] MEDS: LEVOFLOXACIN 500 MG TABLET PO SCH (12:15)
--- NOTE | 2017-09-02 21:22 | Operative Report ---
Operative Report DATE OF SURGERY: 09/02/17 Operative Report: patient keept NPO 12 hrs to proceedure taken to suite given neb lidocaine 5cc 2 % and upper airway lidocaine by atomizer ;then using versed and fentanyl see CNRA notes .Bronchoscopy was started using a "T" sized scope.NO abnormalities of upper airway post pharynx vocal cord trachea were noted There was no splaying of the eran.R mainstem RUL,R bronchus intermedius,r middle lobe and R lower lobes displayed a paled mucosa but was otherwise normal.The L main stem bronchus narrowed distally with obstruction of the L upper lobe multipl transbronchial,Deutsch needle biopsies and lavage were taken. PREOPERATIVE DIAGNOSIS: L Lung mass POSTOPERATIVE DIAGNOSIS: same OPERATION: FOB with BAL,TBB andWNB SURGEON: GURPREET BETTS ANESTHESIA: Moderate Sedation COMPLICATIONS: nonw ESTIMATED BLOOD LOSS: 3cc INTRAOPERATIVE FINDINGS: see report
--- NOTE | 2017-09-02 21:24 | PDOC PROGRESS REPORT ---
Subjective Progress Note for:: 08/31/17 Subjective:: green sputum bronchoscopy is not until Wednesday 1 PM resumed diet Reason For Visit: LUNG MASS,CHEST PAIN,COPD Physical Exam Vital Signs: Temp Pulse Resp BP Pulse Ox 98.3 F 81 20 106/59 L 98 09/01/17 07:58 09/01/17 07:58 09/01/17 07:58 09/01/17 07:58 09/01/17 07:58 Intake & Output 08/31/17 09/01/17 09/02/17 06:59 06:59 06:59 Intake Total 900 2950 Balance 900 2950 Weight 55.3 kg 55.3 kg General appearance: PRESENT: no acute distress, cooperative, disheveled, thin Head exam: PRESENT: atraumatic, normocephalic Eye exam: PRESENT: conjunctiva pale, EOMI. ABSENT: nystagmus, periorbital swelling, scleral icterus Mouth exam: PRESENT: dry mucosa, neck supple Neck exam: ABSENT: carotid bruit, JVD, lymphadenopathy, thyromegaly, tracheal deviation, tracheostomy Respiratory exam: PRESENT: decreased breath sounds, prolonged expiratory phas, rales, rhonchi, symmetrical, unlabored, wheezes. ABSENT: tachypnea Cardiovascular exam: PRESENT: RRR, +S1, +S2, tachycardia Pulses: PRESENT: normal radial pulses GI/Abdominal exam: PRESENT: diminished bowel sounds, soft Extremities exam: ABSENT: calf tenderness, clubbing, joint swelling Musculoskeletal exam: ABSENT: deformity, dislocation Neurological exam: PRESENT: alert, awake Psychiatric exam: PRESENT: flat affect Skin exam: PRESENT: dry, warm Results Laboratory Results: 08/28/17 14:42 09/01/17 03:59 08/31/17 09/01/17 11:52 03:59 Sodium 136.9 L 134.0 L Potassium 5.0 D 4.6 Chloride 99 101 Carbon Dioxide 24 27 Anion Gap 14 6 BUN 38 H 30 H Creatinine 1.18 0.90 Est GFR ( Amer) > 60 > 60 Est GFR (Non-Af Amer) > 60 > 60 Glucose 96 92 Calcium 11.3 H 9.2 Phosphorus 4.7 H D Magnesium 2.1 08/31/17 06:55 NT-Pro-B Natriuret Pep 147 Impressions: Chest/Abdomen CTA 08/26/17 13:53 IMPRESSION: 1. VERY LARGE MASS IN THE LEFT HILUM AND MEDIASTINUM DESCRIBED CONSISTENT WITH MALIGNANCY, EITHER PRIMARY TUMOR OR METASTATIC LYMPH NODES. THERE ARE ALSO SEVERAL PULMONARY MASSES AND PLEURAL-BASED MASSES CONSISTENT WITH METASTASES. SLIGHTLY HAZY GROUND-GLASS APPEARANCE OF THE LEFT LOWER LOBE PROBABLY DUE TO POSTOBSTRUCTIVE ATELECTASIS ALTHOUGH INFECTION CANNOT BE EXCLUDED. 2. SUBOPTIMAL CONTRAST FILLING OF THE PULMONARY ARTERIES. NO EMBOLI IN THE LARGER ARTERIAL BRANCHES. THERE IS SIGNIFICANT CONSTRICTION OF THE LEFT MAIN PULMONARY ARTERY AND PROXIMAL BRANCHES DUE TO THE MASS. Abdomen/Pelvis CT 08/27/17 09:32 IMPRESSION: No evidence for intra- abdominal or pelvic metastatic disease is seen. Other findings as noted above. Body Scan Nuclear Medicine 08/27/17 11:09 IMPRESSION: No bone scan evidence of bony metastatic disease Chest X-Ray 08/30/17 00:59 IMPRESSION: Bilateral opacities including a large left hilar mass. Skinfold pattern on the right decreases sensitivity-specificity. Assessment & Plan - Diagnosis (1) COPD (chronic obstructive pulmonary disease) Qualifiers: Chronic bronchitis type: unspecified Is this a current diagnosis for this admission?: Yes Plan: Continue bronchodilators (2) Lung mass Is this a current diagnosis for this admission?: Yes Plan: Currently scheduled for tomorrow August 31 1 PM
--- NOTE | 2017-09-02 21:28 | PDOC PROGRESS REPORT ---
Subjective Progress Note for:: 09/01/17 Subjective:: bronch canceled per anesthesia Reason For Visit: LUNG MASS,CHEST PAIN,COPD Physical Exam Vital Signs: Temp Pulse Resp BP Pulse Ox 98.3 F 81 20 106/59 L 98 09/01/17 07:58 09/01/17 07:58 09/01/17 07:58 09/01/17 07:58 09/01/17 07:58 Intake & Output 08/31/17 09/01/17 09/02/17 06:59 06:59 06:59 Intake Total 900 2950 Balance 900 2950 Weight 55.3 kg 55.3 kg General appearance: PRESENT: no acute distress, cooperative, disheveled, thin Head exam: PRESENT: atraumatic, normocephalic Eye exam: PRESENT: conjunctiva pale, EOMI. ABSENT: nystagmus, periorbital swelling, scleral icterus Mouth exam: PRESENT: dry mucosa, neck supple, tongue midline Neck exam: ABSENT: carotid bruit, JVD, lymphadenopathy, thyromegaly, tracheal deviation, tracheostomy Respiratory exam: PRESENT: decreased breath sounds, prolonged expiratory phas, rales, rhonchi, symmetrical, unlabored, wheezes. ABSENT: tachypnea Cardiovascular exam: PRESENT: RRR, +S1, +S2, tachycardia Pulses: PRESENT: normal radial pulses GI/Abdominal exam: PRESENT: diminished bowel sounds, soft Extremities exam: ABSENT: calf tenderness, clubbing, joint swelling Musculoskeletal exam: ABSENT: deformity, dislocation Neurological exam: PRESENT: alert, awake Psychiatric exam: PRESENT: flat affect Skin exam: PRESENT: dry, warm Results Laboratory Results: 08/28/17 14:42 09/01/17 03:59 08/31/17 09/01/17 11:52 03:59 Sodium 136.9 L 134.0 L Potassium 5.0 D 4.6 Chloride 99 101 Carbon Dioxide 24 27 Anion Gap 14 6 BUN 38 H 30 H Creatinine 1.18 0.90 Est GFR ( Amer) > 60 > 60 Est GFR (Non-Af Amer) > 60 > 60 Glucose 96 92 Calcium 11.3 H 9.2 Phosphorus 4.7 H D Magnesium 2.1 08/31/17 06:55 NT-Pro-B Natriuret Pep 147 Impressions: Chest/Abdomen CTA 08/26/17 13:53 IMPRESSION: 1. VERY LARGE MASS IN THE LEFT HILUM AND MEDIASTINUM DESCRIBED CONSISTENT WITH MALIGNANCY, EITHER PRIMARY TUMOR OR METASTATIC LYMPH NODES. THERE ARE ALSO SEVERAL PULMONARY MASSES AND PLEURAL-BASED MASSES CONSISTENT WITH METASTASES. SLIGHTLY HAZY GROUND-GLASS APPEARANCE OF THE LEFT LOWER LOBE PROBABLY DUE TO POSTOBSTRUCTIVE ATELECTASIS ALTHOUGH INFECTION CANNOT BE EXCLUDED. 2. SUBOPTIMAL CONTRAST FILLING OF THE PULMONARY ARTERIES. NO EMBOLI IN THE LARGER ARTERIAL BRANCHES. THERE IS SIGNIFICANT CONSTRICTION OF THE LEFT MAIN PULMONARY ARTERY AND PROXIMAL BRANCHES DUE TO THE MASS. Abdomen/Pelvis CT 08/27/17 09:32 IMPRESSION: No evidence for intra- abdominal or pelvic metastatic disease is seen. Other findings as noted above. Body Scan Nuclear Medicine 08/27/17 11:09 IMPRESSION: No bone scan evidence of bony metastatic disease Chest X-Ray 08/30/17 00:59 IMPRESSION: Bilateral opacities including a large left hilar mass. Skinfold pattern on the right decreases sensitivity-specificity. Assessment & Plan - Diagnosis (1) COPD (chronic obstructive pulmonary disease) Qualifiers: Chronic bronchitis type: unspecified Is this a current diagnosis for this admission?: Yes Plan: Continue bronchodilators (2) Lung mass Is this a current diagnosis for this admission?: Yes Plan: rescheduled for September 02 8 AM
--- NOTE | 2017-09-02 21:30 | PDOC PROGRESS REPORT ---
Subjective Progress Note for:: 09/02/17 Subjective:: patient without complaints Reason For Visit: LUNG MASS,CHEST PAIN,COPD Physical Exam Vital Signs: Temp Pulse Resp BP Pulse Ox 99.0 F 109 H 24 H 112/68 96 09/02/17 20:12 09/02/17 20:12 09/02/17 20:12 09/02/17 20:12 09/02/17 20:12 Intake & Output 09/01/17 09/02/17 09/03/17 06:59 06:59 06:59 Intake Total 2950 590 610 Output Total 230 5 Balance 2950 360 605 Weight 55.3 kg 55.2 kg General appearance: PRESENT: no acute distress, cooperative, disheveled, thin Head exam: PRESENT: atraumatic, normocephalic Eye exam: PRESENT: conjunctiva pale, EOMI. ABSENT: nystagmus, periorbital swelling, scleral icterus Mouth exam: PRESENT: dry mucosa, neck supple, tongue midline Neck exam: ABSENT: carotid bruit, JVD, lymphadenopathy, thyromegaly, tracheal deviation, tracheostomy Respiratory exam: PRESENT: decreased breath sounds, prolonged expiratory phas, rales, rhonchi, symmetrical, unlabored, wheezes Cardiovascular exam: PRESENT: RRR, +S1, +S2, tachycardia Pulses: PRESENT: normal radial pulses GI/Abdominal exam: PRESENT: diminished bowel sounds, soft Extremities exam: ABSENT: calf tenderness, clubbing, joint swelling Musculoskeletal exam: ABSENT: deformity, dislocation Neurological exam: PRESENT: alert, awake Psychiatric exam: PRESENT: flat affect Skin exam: PRESENT: dry, warm Results Laboratory Results: 08/28/17 14:42 09/02/17 04:30 09/02/17 04:30 Sodium 133.4 L Potassium 4.7 Chloride 96 L Carbon Dioxide 26 Anion Gap 11 BUN 27 H Creatinine 0.91 Est GFR ( Amer) > 60 Est GFR (Non-Af Amer) > 60 Glucose 102 Calcium 9.7 08/31/17 06:55 NT-Pro-B Natriuret Pep 147 Impressions: Chest/Abdomen CTA 08/26/17 13:53 IMPRESSION: 1. VERY LARGE MASS IN THE LEFT HILUM AND MEDIASTINUM DESCRIBED CONSISTENT WITH MALIGNANCY, EITHER PRIMARY TUMOR OR METASTATIC LYMPH NODES. THERE ARE ALSO SEVERAL PULMONARY MASSES AND PLEURAL-BASED MASSES CONSISTENT WITH METASTASES. SLIGHTLY HAZY GROUND-GLASS APPEARANCE OF THE LEFT LOWER LOBE PROBABLY DUE TO POSTOBSTRUCTIVE ATELECTASIS ALTHOUGH INFECTION CANNOT BE EXCLUDED. 2. SUBOPTIMAL CONTRAST FILLING OF THE PULMONARY ARTERIES. NO EMBOLI IN THE LARGER ARTERIAL BRANCHES. THERE IS SIGNIFICANT CONSTRICTION OF THE LEFT MAIN PULMONARY ARTERY AND PROXIMAL BRANCHES DUE TO THE MASS. Abdomen/Pelvis CT 08/27/17 09:32 IMPRESSION: No evidence for intra- abdominal or pelvic metastatic disease is seen. Other findings as noted above. Body Scan Nuclear Medicine 08/27/17 11:09 IMPRESSION: No bone scan evidence of bony metastatic disease Chest X-Ray 09/02/17 00:00 IMPRESSION: IMAGE(S) OBTAINED DURING PROCEDURE. Fluoroscopy 09/02/17 00:00 IMPRESSION: IMAGE(S) OBTAINED DURING PROCEDURE. Assessment & Plan - Diagnosis (1) COPD (chronic obstructive pulmonary disease) Qualifiers: Chronic bronchitis type: unspecified Is this a current diagnosis for this admission?: Yes Plan: Continue bronchodilators (2) Lung mass Is this a current diagnosis for this admission?: Yes Plan: bronchoscopy
[2017-09-03 05:28] LABS: ANION GAP 10 (5-19); BLOOD UREA NITROGEN 25 mg/dL (7-20); CALCIUM 9.5 mg/dL (8.4-10.2); CARBON DIOXIDE 27 mmol/L (22-30); CHLORIDE 97 mmol/L (98-107); GLUCOSE 109 mg/dL (75-110); POTASSIUM 4.7 mmol/L (3.6-5.0)
[2017-09-03] MEDS: LANSOPRAZOLE 15 MG TAB.RAP.DR PO SCH (05:37)
--- NOTE | 2017-09-03 08:02 | PDOC PROGRESS REPORT ---
Subjective Progress Note for:: 09/03/17 Subjective:: Pt had bronch yesterday, stable this am, pain better, overall doing ok Reason For Visit: LUNG MASS,CHEST PAIN,COPD Physical Exam Vital Signs: Temp Pulse Resp BP Pulse Ox 99.0 F 98 24 H 112/68 96 09/02/17 20:12 09/03/17 02:00 09/02/17 20:12 09/02/17 20:12 09/02/17 20:12 Intake & Output 09/02/17 09/03/17 09/04/17 06:59 06:59 06:59 Intake Total 590 970 Output Total 230 265 Balance 360 705 Weight 55.2 kg 55.2 kg General appearance: PRESENT: no acute distress, well-developed, well-nourished Head exam: PRESENT: atraumatic, normocephalic Eye exam: PRESENT: conjunctiva pink, EOMI, PERRLA. ABSENT: scleral icterus Ear exam: PRESENT: normal external ear exam Mouth exam: PRESENT: moist, tongue midline Neck exam: ABSENT: carotid bruit, JVD, lymphadenopathy, thyromegaly Respiratory exam: PRESENT: clear to auscultation roshni. ABSENT: rales, rhonchi, wheezes Cardiovascular exam: PRESENT: RRR. ABSENT: diastolic murmur, rubs, systolic murmur Pulses: PRESENT: normal dorsalis pedis pul Vascular exam: PRESENT: normal capillary refill GI/Abdominal exam: PRESENT: normal bowel sounds, soft. ABSENT: distended, guarding, mass, organolmegaly, rebound, tenderness Rectal exam: PRESENT: deferred Extremities exam: PRESENT: full ROM. ABSENT: calf tenderness, clubbing, pedal edema Neurological exam: PRESENT: alert, awake, oriented to person, oriented to place , oriented to time, oriented to situation, CN II-XII grossly intact. ABSENT: motor sensory deficit Psychiatric exam: PRESENT: appropriate affect, normal mood. ABSENT: homicidal ideation, suicidal ideation Skin exam: PRESENT: dry, intact, warm. ABSENT: cyanosis, rash Results Laboratory Results: 08/28/17 14:42 09/03/17 03:55 09/03/17 03:55 Sodium 134.0 L Potassium 4.7 Chloride 97 L Carbon Dioxide 27 Anion Gap 10 BUN 25 H Creatinine 0.91 Est GFR ( Amer) > 60 Est GFR (Non-Af Amer) > 60 Glucose 109 Calcium 9.5 Magnesium 2.2 08/31/17 06:55 NT-Pro-B Natriuret Pep 147 Impressions: Chest/Abdomen CTA 08/26/17 13:53 IMPRESSION: 1. VERY LARGE MASS IN THE LEFT HILUM AND MEDIASTINUM DESCRIBED CONSISTENT WITH MALIGNANCY, EITHER PRIMARY TUMOR OR METASTATIC LYMPH NODES. THERE ARE ALSO SEVERAL PULMONARY MASSES AND PLEURAL-BASED MASSES CONSISTENT WITH METASTASES. SLIGHTLY HAZY GROUND-GLASS APPEARANCE OF THE LEFT LOWER LOBE PROBABLY DUE TO POSTOBSTRUCTIVE ATELECTASIS ALTHOUGH INFECTION CANNOT BE EXCLUDED. 2. SUBOPTIMAL CONTRAST FILLING OF THE PULMONARY ARTERIES. NO EMBOLI IN THE LARGER ARTERIAL BRANCHES. THERE IS SIGNIFICANT CONSTRICTION OF THE LEFT MAIN PULMONARY ARTERY AND PROXIMAL BRANCHES DUE TO THE MASS. Abdomen/Pelvis CT 08/27/17 09:32 IMPRESSION: No evidence for intra- abdominal or pelvic metastatic disease is seen. Other findings as noted above. Body Scan Nuclear Medicine 08/27/17 11:09 IMPRESSION: No bone scan evidence of bony metastatic disease Chest X-Ray 09/02/17 00:00 IMPRESSION: IMAGE(S) OBTAINED DURING PROCEDURE. Fluoroscopy 09/02/17 00:00 IMPRESSION: IMAGE(S) OBTAINED DURING PROCEDURE. Assessment & Plan - Diagnosis (1) Lung mass Is this a current diagnosis for this admission?: Yes Plan: Most likely primary lung ca, would guess by presentation/location of tumor that this either squamous cell or small cell lung ca, we will see, pt ok for d/c from onc standpoint, given appt for our office next week. (2) Pain due to neoplasm Is this a current diagnosis for this admission?: Yes Plan: 2nd to lung mass, pt should be given rx for norco on d/c to last until appt next week for results and further management recommendations.
[2017-09-03] MEDS: ENOXAPARIN SODIUM INJ 40 MG/0.4 ML DISP.SYRIN SUBCUT SCH (10:08)
[2017-09-03] MEDS: LACTOBACILLUS ACIDOPHILUS 250 MG TAB PO SCH ×2 (10:09→18:19)
[2017-09-03] MEDS: LEVOFLOXACIN 500 MG TABLET PO SCH (10:10)
[2017-09-03] MEDS: OXYCODONE HCL SR 10 MG TABLET PO SCH ×2 (10:11→22:54)
[2017-09-03] MEDS: DOCUSATE SODIUM 100 MG CAPSULE PO SCH ×2 (10:22→18:59)
[2017-09-03] MEDS: NICOTINE 21 MG/24 HR PATCH.TD24 TD SCH (10:22)
--- NOTE | 2017-09-03 15:02 | PDOC PROGRESS REPORT ---
Subjective Progress Note for:: 09/03/17 Subjective:: I seen the patient while he is resting in bed. He is awake alert and oriented complaints of shortness of breath and nausea. Reason For Visit: LUNG MASS,CHEST PAIN,COPD Physical Exam Vital Signs: Temp Pulse Resp BP Pulse Ox 98.4 F 106 H 20 106/61 97 09/03/17 11:34 09/03/17 11:34 09/03/17 11:34 09/03/17 11:34 09/03/17 11:34 Intake & Output 09/02/17 09/03/17 09/04/17 06:59 06:59 06:59 Intake Total 590 970 Output Total 230 265 Balance 360 705 Weight 55.2 kg 55.2 kg General appearance: PRESENT: no acute distress, well-developed, well-nourished Head exam: PRESENT: atraumatic, normocephalic Respiratory exam: PRESENT: other - Illness and decreased air entry over the left lung Cardiovascular exam: PRESENT: RRR. ABSENT: diastolic murmur, rubs, systolic murmur Results Laboratory Results: 08/28/17 14:42 09/03/17 03:55 09/03/17 03:55 Sodium 134.0 L Potassium 4.7 Chloride 97 L Carbon Dioxide 27 Anion Gap 10 BUN 25 H Creatinine 0.91 Est GFR ( Amer) > 60 Est GFR (Non-Af Amer) > 60 Glucose 109 Calcium 9.5 Magnesium 2.2 08/31/17 06:55 NT-Pro-B Natriuret Pep 147 Impressions: Chest/Abdomen CTA 08/26/17 13:53 IMPRESSION: 1. VERY LARGE MASS IN THE LEFT HILUM AND MEDIASTINUM DESCRIBED CONSISTENT WITH MALIGNANCY, EITHER PRIMARY TUMOR OR METASTATIC LYMPH NODES. THERE ARE ALSO SEVERAL PULMONARY MASSES AND PLEURAL-BASED MASSES CONSISTENT WITH METASTASES. SLIGHTLY HAZY GROUND-GLASS APPEARANCE OF THE LEFT LOWER LOBE PROBABLY DUE TO POSTOBSTRUCTIVE ATELECTASIS ALTHOUGH INFECTION CANNOT BE EXCLUDED. 2. SUBOPTIMAL CONTRAST FILLING OF THE PULMONARY ARTERIES. NO EMBOLI IN THE LARGER ARTERIAL BRANCHES. THERE IS SIGNIFICANT CONSTRICTION OF THE LEFT MAIN PULMONARY ARTERY AND PROXIMAL BRANCHES DUE TO THE MASS. Abdomen/Pelvis CT 08/27/17 09:32 IMPRESSION: No evidence for intra- abdominal or pelvic metastatic disease is seen. Other findings as noted above. Body Scan Nuclear Medicine 08/27/17 11:09 IMPRESSION: No bone scan evidence of bony metastatic disease Chest X-Ray 09/02/17 00:00 IMPRESSION: IMAGE(S) OBTAINED DURING PROCEDURE. Fluoroscopy 09/02/17 00:00 IMPRESSION: IMAGE(S) OBTAINED DURING PROCEDURE. Assessment & Plan - Diagnosis (1) Acute bronchitis Qualifiers: Bronchitis organism: unspecified organism Qualified Code(s): J20.9 - Acute bronchitis, unspecified Is this a current diagnosis for this admission?: Yes Plan: Patient has been on Levaquin (2) COPD (chronic obstructive pulmonary disease) Qualifiers: Chronic bronchitis type: unspecified Is this a current diagnosis for this admission?: Yes Plan: Continue scheduled DuoNeb (3) Hyperkalemia Is this a current diagnosis for this admission?: Yes Plan: Has resolved (4) Lung mass Is this a current diagnosis for this admission?: Yes Plan: Per Dr. Patel his oncologist
[2017-09-03] MEDS: ONDANSETRON HCL INJ/PF 4 MG/2 ML SDV IV PRN (18:57)
[2017-09-03] MEDS ORDERED: PROMETHAZINE HCL INJ 25 MG/1 ML VIAL IV PRN (20:30)
[2017-09-03] MEDS: SENNOSIDES/DOCUSATE 8.6-50 MG 1 EACH TABLET PO SCH (22:54)
[2017-09-04] MEDS: LANSOPRAZOLE 15 MG TAB.RAP.DR PO SCH (05:08)
[2017-09-04] MEDS: LEVOFLOXACIN 500 MG TABLET PO SCH (09:56)
[2017-09-04] MEDS: OXYCODONE HCL SR 10 MG TABLET PO SCH (09:58)
[2017-09-04 10:05] VITALS: BP 106/63
[2017-09-04] MEDS: DOCUSATE SODIUM 100 MG CAPSULE PO SCH (10:08)
[2017-09-04] MEDS: ENOXAPARIN SODIUM INJ 40 MG/0.4 ML DISP.SYRIN SUBCUT SCH (10:08)
[2017-09-04] MEDS: NICOTINE 21 MG/24 HR PATCH.TD24 TD SCH (10:08)
[2017-09-04] MEDS: LACTOBACILLUS ACIDOPHILUS 250 MG TAB PO SCH (10:08)
--- NOTE | 2017-09-04 11:55 | PDOC DISCHARGE SUMMARY ---
General - Admit/Disc Date/PCP Admission Date/Primary Care Provider: 08/26/17 17:48 Discharge Date: 09/04/17 - Discharge Diagnosis (1) Acute bronchitis Is this a current diagnosis for this admission?: Yes (2) COPD (chronic obstructive pulmonary disease) Is this a current diagnosis for this admission?: Yes (3) Hyperkalemia Is this a current diagnosis for this admission?: Yes (4) Lung mass Is this a current diagnosis for this admission?: Yes - Additional Information Resuscitation Status: Full Code Discharge Diet: Regular Discharge Activity: Activity As Tolerated, Balance Activity w/Rest Prescriptions: Albuterol Sulfate [Ventolin Hfa] 1 - 2 puff IH Q4 PRN #1 [id number].[email or web address] PRN Reason: Home Medications: Albuterol Sulfate [Ventolin Hfa] 1 - 2 puff IH Q4 PRN #1 [id number].[email or web address] 09/04/17 History of Present Illness History of Present Illness: RAMEZ RAY is a 61 year old male with a past medical history of Tobacco Dependence who is not seen primary care physician for years. He presents with 2 weeks of change in voice, 1 week chest pain with deep breathing. He denies palpitations, nausea vomiting or diaphoresis. He admits a 30 pound weight loss over the last 12 months and a long-standing 2 x 2 centimeter ulcerated lesion of skin over the right scapula., In the emergency room he has a CT of the chest showing a very large mass in the left lung and mediastinum consistent with malignancy in addition to several pulmonary and pleural masses. He is referred to the hospitalist for admission Hospital Course Hospital Course: Mr. Ray is a very pleasant but unfortunate 61 years old male patient admitted about 10 days ago with chief complaint of 2 weeks history of hoarseness of voice and unintentional weight loss about 30 pound over [address] of the chest shows large left hilum and mediastinal mass and as the pleural-based nodules, consistent with malignancy. Patient had bronchoscopy and biopsy the pathology report is pending. Patient has long- standing history of heavy smoking. Patient has been seen by , oncologist who will follow-up the patient as outpatient. During his this current admission patient also diagnosed with acute bronchitis for which she was treated with Levaquin adequately. Physical Exam Vital Signs: Temp Pulse Resp BP Pulse Ox 98.4 F 99 20 106/63 97 09/04/17 09:35 09/04/17 09:35 09/04/17 09:35 09/04/17 09:35 09/04/17 09:35 Intake & Output 09/03/17 09/04/17 09/05/17 06:59 06:59 06:59 Intake Total 970 789 Output Total 265 Balance 705 789 Weight 55.2 kg 55.3 kg General appearance: PRESENT: mild distress Head exam: PRESENT: atraumatic, normocephalic Eye exam: PRESENT: conjunctiva pink, EOMI, PERRLA. ABSENT: scleral icterus Respiratory exam: PRESENT: other - Decreased air entry and dullness over the the left lung field Results Laboratory Results: 08/28/17 14:42 09/03/17 03:55 09/01/17 17:44 Sputum Gram Stain - Final 09/01/17 17:44 Sputum Sputum Culture - Final Yeast, Not [place] Albicans Normal Yolanda Absent 08/31/17 06:55 NT-Pro-B Natriuret Pep 147 Impressions: Chest/Abdomen CTA 08/26/17 13:53 IMPRESSION: 1. VERY LARGE MASS IN THE LEFT HILUM AND MEDIASTINUM DESCRIBED CONSISTENT WITH MALIGNANCY, EITHER PRIMARY TUMOR OR METASTATIC LYMPH NODES. THERE ARE ALSO SEVERAL PULMONARY MASSES AND PLEURAL-BASED MASSES CONSISTENT WITH METASTASES. SLIGHTLY HAZY GROUND-GLASS APPEARANCE OF THE LEFT LOWER LOBE PROBABLY DUE TO POSTOBSTRUCTIVE ATELECTASIS ALTHOUGH INFECTION CANNOT BE EXCLUDED. 2. SUBOPTIMAL CONTRAST FILLING OF THE PULMONARY ARTERIES. NO EMBOLI IN THE LARGER ARTERIAL BRANCHES. THERE IS SIGNIFICANT CONSTRICTION OF THE LEFT MAIN PULMONARY ARTERY AND PROXIMAL BRANCHES DUE TO THE MASS. Abdomen/Pelvis CT 08/27/17 09:32 IMPRESSION: No evidence for intra- abdominal or pelvic metastatic disease is seen. Other findings as noted above. Body Scan Nuclear Medicine 08/27/17 11:09 IMPRESSION: No bone scan evidence of bony metastatic disease Chest X-Ray 09/02/17 00:00 IMPRESSION: IMAGE(S) OBTAINED DURING PROCEDURE. Fluoroscopy 09/02/17 00:00 IMPRESSION: IMAGE(S) OBTAINED DURING PROCEDURE. Qualifiers - * PATEINT BEING DISCHARGED WITH ANY OF THE FOLLOWING DIAGNOSIS?: No
== END 2017-09-04 12:55 | disposition home or self-care (01) | DRG 191 ==
LOC: ER 12:17 → EDBD 12:17 → EH 17:48 → 5 18:31
PROVIDERS: ADMIT Family Medicine; ATTEND Family Medicine
PROC: 3E0F73Z Introduction of Anti-inflammatory into Respiratory Tract, Via Natural or Artificial Opening (ICD-10-PCS; principal; 2017-08-26)
DX: J44.0 Chronic obstructive pulmonary disease with (acute) lower respiratory infection (principal); C34.02 Malignant neoplasm of left main bronchus; Z68.1 Body mass index [BMI] 19.9 or less, adult; E46 Unspecified protein-calorie malnutrition; J20.9 Acute bronchitis, unspecified; E87.5 Hyperkalemia; F17.210 Nicotine dependence, cigarettes, uncomplicated; G89.3 Neoplasm related pain (acute) (chronic); K59.00 Constipation, unspecified; Z82.3 Family history of stroke; Z83.6 Family history of other diseases of the respiratory system
CPT/HCPCS: 31625; 31628; 36415; 520; 71045; 71046; 71275; 74177; 78306; 80048; 80053; 82550; 82565; 82962; 83036; 83735; 83880; 84100; 84443; 84484; 85025; 85027; 85379; 85610; 85730; 87070; 87077; 87205; 88104; 88305; 88341; 88342; 93005; 93010; 93306; 94640; 94667; 94799; 96360; 99285; A9561; J0171; J0610; J1644; J1650; J1815; J2250; J2270; J2405; J2543; J2550; J2704; J2765; J2920; J3010; J3490; J7030; J7512; J7620; Q9969

== ENCOUNTER 2017-09-08 10:38 | Outpatient (CLI) | payer SELFPAY ==
[2017-09-08 11:17] LABS: HEMATOCRIT 41.7 % (37.9-51.0); HEMOGLOBIN 14.5 g/dL (13.5-17.0); MEAN CORPUSCULAR HEMOGLOBIN 30.4 pg (27.0-33.4); MEAN CORPUSCULAR HGB CONC 34.7 g/dL (32.0-36.0); MEAN CORPUSCULAR VOLUME 88 fl (80-97); PLATELET COUNT 693 10^3/uL (150-450); RED BLOOD COUNT 4.77 10^6/uL (4.35-5.55); RED CELL DISTRIBUTION WIDTH 12.9 % (11.5-14.0)
[2017-09-08 11:26] LABS: ALANINE AMINOTRANSFERASE 40 U/L (21-72); ALBUMIN 3.6 g/dL (3.5-5.0); ALKALINE PHOSPHATASE 311 U/L (38-126); ANION GAP 16 (5-19); ASPARTATE AMINO TRANSFERASE 72 U/L (17-59); BILIRUBIN,DIRECT 0.7 mg/dL (0.0-0.4); BLOOD UREA NITROGEN 38 mg/dL (7-20); CALCIUM 10.4 mg/dL (8.4-10.2); CARBON DIOXIDE 29 mmol/L (22-30); CHLORIDE 91 mmol/L (98-107); GLUCOSE 140 mg/dL (75-110); POTASSIUM 4.4 mmol/L (3.6-5.0); TOTAL PROTEIN 6.9 g/dL (6.3-8.2)
[2017-09-08 11:37] VITALS: BP 135/95
[2017-09-08 11:37] LABS: ABSOLUTE LYMPHOCYTES# (MANUAL) 2.7 10^3/uL (0.5-4.7); ABSOLUTE MONOCYTES # (MANUAL) 1.3 10^3/uL (0.1-1.4); BASOPHILS % (MANUAL) 0 % (0-2); EOSINOPHILS % (MANUAL) 0 % (0-6); LYMPHOCYTES % (MANUAL) 13 % (13-45); MONOCYTES % (MANUAL) 6 % (3-13); SEGMENTED NEUTROPHILS % (MAN) 81 % (42-78); TOTAL CELLS COUNTED 100
[2017-09-08 11:38] LABS: PLATELET COMMENT INCREASED
[2017-09-08 11:41] LABS: RBC MORPHOLOGY COMMENT NORMO-CYTIC/CHROMIC; TOXIC VACUOLATION PRESENT
[2017-09-08] MEDS ORDERED: ONDANSETRON HCL INJ/PF 4 MG/2 ML SDV IV PRN (11:50)
[2017-09-08] MEDS ORDERED: NORMAL SALINE 1000 ML 1,000 ML IV PRN (11:50)
== END 2017-09-08 12:56 | disposition home or self-care (01) ==
LOC: II 10:38 → 5TH 11:17 → II 12:56
PROVIDERS: ATTEND Internal Medicine
PROC: 3E0337Z Introduction of Electrolytic and Water Balance Substance into Peripheral Vein, Percutaneous Approach (ICD-10-PCS; principal; 2017-09-08)
PROC: 3E033GC Introduction of Other Therapeutic Substance into Peripheral Vein, Percutaneous Approach (ICD-10-PCS; 2017-09-08)
DX: E86.0 Dehydration (principal); R11.0 Nausea; C34.2 Malignant neoplasm of middle lobe, bronchus or lung
CPT/HCPCS: 36415; 85025; 80053; 96375; 96360; J2405; 96361; 96374

== ENCOUNTER 2017-09-10 10:03 | Outpatient (CLI) | payer SELFPAY ==
[~2017-09-10 10:03] MED LIST: NORMAL SALINE 1000 ML 1,000 ML IV PRN; ONDANSETRON HCL INJ/PF 4 MG/2 ML SDV IV PRN
[2017-09-10 11:14] VITALS: BP 90/50
== END 2017-09-10 11:37 | disposition home or self-care (01) ==
LOC: II 10:03 → 5TH 10:32 → II 11:37
PROVIDERS: ATTEND Internal Medicine
PROC: 3E0337Z Introduction of Electrolytic and Water Balance Substance into Peripheral Vein, Percutaneous Approach (ICD-10-PCS; principal; 2017-09-10)
PROC: 3E033GC Introduction of Other Therapeutic Substance into Peripheral Vein, Percutaneous Approach (ICD-10-PCS; 2017-09-10)
DX: E86.0 Dehydration (principal); R11.0 Nausea; C34.2 Malignant neoplasm of middle lobe, bronchus or lung
CPT/HCPCS: 96360; 96361; 96374

== ENCOUNTER 2017-09-14 07:57 | Outpatient (CLI) | payer SELFPAY ==
[~2017-09-14 07:57] MED LIST changes: +CARBOPLATIN IV PRN; +DEXAMETHASONE SOD PHOSPHATE 10 MG in NORMAL SALINE 50 ML IV PRN; +ETOPOSIDE IV PRN; -NORMAL SALINE 1000 ML 1,000 ML IV PRN; +NORMAL SALINE IV PRN; -ONDANSETRON HCL INJ/PF 4 MG/2 ML SDV IV PRN; +PALONOSETRON 0.25 MG/5 ML SDV IV PRN
[2017-09-14] MEDS: NORMAL SALINE 1000 ML 1,000 ML IV PRN ×2 (08:25→10:09)
[2017-09-14] MEDS ORDERED: HYDROMORPHONE HCL INJ/PF 2 MG/ML AMPULE IV ONE (09:30)
[2017-09-14 09:35] LABS: ABSOLUTE EOSINOPHILS # (AUTO) 0.1 10^3/uL (0.0-0.6); ABSOLUTE LYMPHOCYTES (AUTO) 1.1 10^3/uL (0.5-4.7); ABSOLUTE MONOCYTES (AUTO) 0.9 10^3/uL (0.1-1.4); ABSOLUTE NEUT (AUTO) 8.7 10^3/uL (1.7-8.2); BASOPHILS % (AUTO) 0.3 % (0-2); EOSINOPHILS % (AUTO) 0.7 % (0-6); HEMATOCRIT 36.7 % (37.9-51.0); HEMOGLOBIN 12.6 g/dL (13.5-17.0); LYMPHOCYTES % (AUTO) 10.4 % (13-45); MEAN CORPUSCULAR HEMOGLOBIN 30.1 pg (27.0-33.4); MEAN CORPUSCULAR HGB CONC 34.4 g/dL (32.0-36.0); MEAN CORPUSCULAR VOLUME 88 fl (80-97); MONOCYTES % (AUTO) 8.5 % (3-13); PLATELET COUNT 431 10^3/uL (150-450); RED BLOOD COUNT 4.19 10^6/uL (4.35-5.55); RED CELL DISTRIBUTION WIDTH 12.9 % (11.5-14.0); SEGMENTED NEUTROPHILS % (AUTO) 80.1 % (42-78); TOTAL CELLS COUNTED % (AUTO) 100 %; WHITE BLOOD COUNT 10.8 10^3/uL (4.0-10.5)
[2017-09-14] MEDS ORDERED: NORMAL SALINE 1000 ML 1,000 ML IV ONE (10:00)
[2017-09-14 10:38] VITALS: BP 102/58
== END 2017-09-14 12:40 | disposition home or self-care (01) ==
LOC: II 07:57 → 5TH 08:00 → II 12:40
PROVIDERS: ATTEND Internal Medicine
PROC: 3E03305 Introduction of Other Antineoplastic into Peripheral Vein, Percutaneous Approach (ICD-10-PCS; principal; 2017-09-14)
PROC: 3E0333Z Introduction of Anti-inflammatory into Peripheral Vein, Percutaneous Approach (ICD-10-PCS; 2017-09-14)
PROC: 3E033GC Introduction of Other Therapeutic Substance into Peripheral Vein, Percutaneous Approach (ICD-10-PCS; 2017-09-14)
DX: Z51.11 Encounter for antineoplastic chemotherapy (principal); C34.2 Malignant neoplasm of middle lobe, bronchus or lung
CPT/HCPCS: 36415; 85025; 96413; 96415; 96367; 96374; 96375; 96360; 96361; J9045; J9181; J1170; J7050; J7040; J1100; J2469; 96417

== ENCOUNTER 2017-09-15 07:59 | Outpatient (CLI) | payer SELFPAY ==
[~2017-09-15 07:59] MED LIST changes: -CARBOPLATIN IV PRN; -DEXAMETHASONE SOD PHOSPHATE 10 MG in NORMAL SALINE 50 ML IV PRN; +NORMAL SALINE 1000 ML 1,000 ML IV PRN; +ONDANSETRON HCL/PF 16 MG, DEXAMETHASONE SOD PHOSPHATE 10 MG in NORMAL SALINE 50 ML IV PRN; -PALONOSETRON 0.25 MG/5 ML SDV IV PRN
[2017-09-15 08:30] VITALS: BP 99/62
== END 2017-09-15 11:41 | disposition home or self-care (01) ==
LOC: II 07:59 → 5TH 08:36 → II 11:41
PROVIDERS: ATTEND Internal Medicine
PROC: 3E03305 Introduction of Other Antineoplastic into Peripheral Vein, Percutaneous Approach (ICD-10-PCS; principal; 2017-09-15)
PROC: 3E033GC Introduction of Other Therapeutic Substance into Peripheral Vein, Percutaneous Approach (ICD-10-PCS; 2017-09-15)
PROC: 3E0333Z Introduction of Anti-inflammatory into Peripheral Vein, Percutaneous Approach (ICD-10-PCS; 2017-09-15)
DX: Z51.11 Encounter for antineoplastic chemotherapy (principal); C34.2 Malignant neoplasm of middle lobe, bronchus or lung
CPT/HCPCS: 96413; 96367; 96360; J9181; J2405; J7040; J1100; 96361

== ENCOUNTER 2017-09-16 07:57 | Outpatient (CLI) | payer SELFPAY ==
[2017-09-16 08:39] VITALS: BP 135/74
== END 2017-09-16 10:52 | disposition home or self-care (01) ==
LOC: II 07:57 → 5TH 08:09 → II 10:52
PROVIDERS: ATTEND Internal Medicine
PROC: 3E03305 Introduction of Other Antineoplastic into Peripheral Vein, Percutaneous Approach (ICD-10-PCS; principal; 2017-09-16)
PROC: 3E033GC Introduction of Other Therapeutic Substance into Peripheral Vein, Percutaneous Approach (ICD-10-PCS; 2017-09-16)
PROC: 3E0333Z Introduction of Anti-inflammatory into Peripheral Vein, Percutaneous Approach (ICD-10-PCS; 2017-09-16)
DX: Z51.11 Encounter for antineoplastic chemotherapy (principal); C34.2 Malignant neoplasm of middle lobe, bronchus or lung
CPT/HCPCS: 96413; 96367; 96360; J9181; J2405; J7040; J1100; 96361

== ENCOUNTER 2017-09-16 11:05 | Inpatient (IN) | payer SELFPAY ==
[2017-09-16] MEDS ORDERED: IPRATROPIUM/ALBUTEROL 0.5-2.5 MG/3 ML AMPUL NEB ONE ×2 (11:11→11:37)
[2017-09-16] MEDS ORDERED: ALBUTEROL SULFATE 0.083% NEB 2.5 MG/3 ML AMPUL NEB ONE (11:11)
--- NOTE | 2017-09-16 11:17 | ER Document Report ---
ED Respiratory Problem - General Mode of Arrival: Stretcher Information source: Patient, Emergency Med Personnel TRAVEL OUTSIDE OF THE [place] IN LAST 30 DAYS: No <PARTH TOPETE - Last Filed: 09/16/17 15:35> <CAMILO HERRON - Last Filed: 09/16/17 15:37> - General Stated Complaint: SHORTNESS OF BREATH Time Seen by Provider: 09/16/17 11:08 Notes: Patient is a 61 year old male with a history of lung cancer presents to the emergency department due to shortness of breath. Patient was recently diagnosed with lung cancer approximately 1 week ago and was in the Transfusion center this morning receiving chemo therapy when he became increasingly short of breath and cyanotic. Staff states the patient began to work extremely hard to catch his breath and had a O2 saturation of 67% which remained the same on 3L of oxygen. Patient was subsequently brought down to the emergency department. Patient states he does not normally where oxygen at home. Patient denies any chest pain. Patients oncologist is Dr. Helton. Today is his 3rd day of chemo. (PARTH TOPETE) - Related Data Allergies/Adverse Reactions: No Known Allergies Allergy (Verified 08/26/17 12:17) Past Medical History - General Information source: Patient - Social History Smoking Status: Former Smoker Family History: COPD, CVA Past Surgical History: Reports: Hx Orthopedic Surgery - R knee cap reconstruction 1980, wires in place <PARTH TOPETE - Last Filed: 09/16/17 15:35> Review of Systems - Review of Systems Constitutional: No symptoms reported EENT: No symptoms reported Cardiovascular: No symptoms reported Respiratory: See HPI, Short of breath Gastrointestinal: No symptoms reported Genitourinary: No symptoms reported Male Genitourinary: No symptoms reported Musculoskeletal: No symptoms reported Skin: No symptoms reported Hematologic/Lymphatic: No symptoms reported Neurological/Psychological: No symptoms reported -: Yes All other systems reviewed and negative <PARTH TOPETE - Last Filed: 09/16/17 15:35> Physical Exam <PARTH TOPETE - Last Filed: 09/16/17 15:35> <CAMILO HERRON - Last Filed: 09/16/17 15:37> - Vital signs Vitals: Resp Pulse Ox 35 H 87 L 09/16/17 11:11 09/16/17 11:11 - Notes Notes: GENERAL: Alert, appears uncomfortable, anxious, in severe respiratory distress. HEAD: Normocephalic, atraumatic. EYES: Pupils equal, round, and reactive to light. Extraocular movements intact. ENT: Oral mucosa moist, tongue midline. NECK: Full range of motion. Supple. Trachea midline. LUNGS: Severe respiratory distress. Tachypnenic. Trace expiratory wheezes. Significant hypoxia at 67%, with good wave form on 3L of oxygen, per my interpretation. Using accessory muscles to breathe. HEART:Tachycardic. No murmurs, gallops, or rubs. ABDOMEN: Soft, non-tender. Non-distended. Bowel sounds present in all 4 quadrants. EXTREMITIES: Moves all 4 extremities spontaneously. No edema, radial and dorsalis pedis pulses 2/4 bilaterally. No cyanosis. NEUROLOGICAL: Alert and oriented x3. Speech limited by respiratory distress. PSYCH: Anxious. SKIN: Warm, dry, normal turgor. No rashes or lesions noted. (PARTH TOPETE) Course - Laboratory Result Diagrams: 09/16/17 11:12 09/16/17 11:12 - Consults Dr. Helton Time consulted: 11:32 - Dr. Helton recommends transferring patient to [facility] to place a stent. <PARTH TOPETE - Last Filed: 09/16/17 15:35> - Laboratory Result Diagrams: 09/16/17 11:12 09/16/17 11:12 <CAMILO HERRON - Last Filed: 09/16/17 15:37> - Re-evaluation Re-evalutation: 09/16/17 12:00 Patient rechecked. Placed on BiPAP with SpO2 at 94. Discussed intensive care and transfer with patient, which he denies. Patient states he would like to stay at [facility] and discuss possible hospice care. (PARTH TOPETE) 09/16/17 12:39 Patient is in acute respiratory distress, appears quite short of breath, immediately placed on BiPAP, pulse ox slowly improved and is now 94% on BiPAP 12 /5 at 80% oxygen, he appears significantly more comfortable. Chest x-ray appears to show complete obstruction of the left lung likely due to his known lung cancer. I did discuss this with Dr. Houston who consulted with Dr. Brett Rashid at [facility] who stated that he could potentially place a stent to reopen the bronchus, this plan was discussed with the patient who states that he does not want to be transferred, does not want to have the stent and would prefer to stay at [place]. I did discuss with the patient that if he plans on staying at [place] we would not be able to do any other major interventions and that we would be transitioning to comfort care and trying to get him referred to hospice. Patient is agreeable to this plan, would like to have pain and anxiety treated but is aware that this will quite possibly cause him to within the next several days. Patient understands that we would not plan on intubating him should he develop further respiratory distress. Dr. Houston was informed of the patient's decision, I then consulted with Perry Dodd nurse practitioner who agreed to accept the patient to her service in admission status on a medical floor for comfort care. Blood work does show leukocytosis, anemia, normal coags, arterial blood gas shows low oxygen but no acidosis, chemistries show somewhat elevated CK-MB at 4.77 and elevated proBNP likely from the stress from a partially or completely occluded pulmonary artery from the tumor. (CAMILO HERRON) - Vital Signs Vital signs: Temp Pulse Resp BP Pulse Ox 97.5 F 141 H 40 H 106/66 99 09/16/17 15:07 09/16/17 15:07 09/16/17 15:07 09/16/17 15:07 09/16/17 15:07 - Laboratory Laboratory results interpreted by ky: 09/16/17 09/16/17 09/16/17 11:12 11:12 11:12 WBC 23.6 H D RBC 3.97 L Hgb 11.9 L Hct 35.0 L Seg Neuts % (Manual) 97 H Band Neutrophils % 2 L Lymphocytes % (Manual) 1 L Monocytes % (Manual) 0 L Abs Neuts (Manual) 23.4 H Abs Lymphs (Manual) 0.2 L Abs Monocytes (Manual) 0.0 L ABG pO2 ABG Total CO2 ABG O2 Saturation Glucose 115 H Direct Bilirubin 0.5 H AST 80 H Alkaline Phosphatase 147 H CK-MB (CK-2) 4.77 H Total Protein 5.3 L Albumin 2.7 L 09/16/17 11:12 WBC RBC Hgb Hct Seg Neuts % (Manual) Band Neutrophils % Lymphocytes % (Manual) Monocytes % (Manual) Abs Neuts (Manual) Abs Lymphs (Manual) Abs Monocytes (Manual) ABG pO2 64.2 L ABG Total CO2 22.9 L ABG O2 Saturation 92.1 L Glucose Direct Bilirubin AST Alkaline Phosphatase CK-MB (CK-2) Total Protein Albumin - EKG Interpretation by Me Additional EKG results interpreted by me: 09/16/17 12:39 EKG shows sinus tachycardia at a rate 139, normal axis, normal intervals, no ST segment patient's or depressions, there is some T-wave flattening noted in V6 per my interpretation. (CAMILO HERRON) Critical Care Note - Critical Care Note Total time excluding time spent on procedures (mins): 35 <CAMILO HERRON - Last Filed: 09/16/17 15:37> Discharge <PARTH TOPETE - Last Filed: 09/16/17 15:35> - Discharge Admitting Provider: Hospitalist - [facility] Unit Admitted: Medical Floor <CAMILO HERRON - Last Filed: 09/16/17 15:37> - Discharge Clinical Impression: Acute respiratory failure with hypoxia Lung cancer Qualifiers: Laterality: left Lung location: hilum of lung Qualified Code(s): C34.02 - Malignant neoplasm of left main bronchus Condition: Critical Disposition: ADMITTED INPATIENT Scribe Attestation: 09/16/17 15:37 I personally performed the services described in the documentation, reviewed and edited the documentation which was dictated to the scribe in my presence, and it accurately records my words and actions. (CAMILO HERRON) Scribe Documentation - Scribe Written by Jam:: Jam French, 09/16/2017 11:23 acting as scribe for :: Gabriella <PARTH TOPETE - Last Filed: 09/16/17 15:35>
[2017-09-16] MEDS ORDERED: FUROSEMIDE INJ/PF 40 MG/4 ML SDV IV ONE (11:27)
--- NOTE | 2017-09-16 11:35 | RADIOLOGY REPORT (SQ) ---
EXAM DESCRIPTION: CHEST SINGLE VIEW COMPLETED DATE/TIME: 09/16/2017 11:18 am REASON FOR STUDY: CP COMPARISON: CT angio chest 08/26/2017 Chest films 08/30/2017, 09/02/2017 EXAM PARAMETERS: NUMBER OF VIEWS: One view. TECHNIQUE: Single frontal radiographic view of the chest acquired. RADIATION DOSE: NA LIMITATIONS: None. FINDINGS: LUNGS AND PLEURA: Since the prior studies, the patient has near completely opacified the l eft hemithorax from left lung collapse from massive hilar tumor. There is now airspace disease in the right perihilar region from probable pulmonary edema. Pneumonia could not be excluded. No right-sided pneumothorax or pleural effusion Findings discussed with Dr. Quiroz MEDIASTINUM AND HILAR STRUCTURES: Left hilar mass is seen on the CT angio chest 08/26/2017 are difficu lt to appreciate due to the surrounding lung collapse HEART AND VASCULAR STRUCTURES: Cardiac silhouette size obscured by left lung collapse BONES: No acute findings. HARDWARE: None in the chest. OTHER: No other significant finding. IMPRESSION: Since the prior exams, patient has near completely collapsed the left lung with elevatio n of the left hemidiaphragm. On the right side, there is new airspace disease throughout the perihilar region, edema versus pneumo ann. TECHNICAL DOCUMENTATION: JOB ID: [id number] [employer]- All Rights Reserved Reading location - IP/workstation name: [facility]
[2017-09-16 11:45] LABS: INTERNATIONAL RATION (INR) 1.06; PROTHROMBIN TIME 14.4 SEC (11.4-15.4)
[2017-09-16 11:46] LABS: HEMOGLOBIN 11.9 g/dL (13.5-17.0); MEAN CORPUSCULAR VOLUME 88 fl (80-97); PLATELET COUNT 410 10^3/uL (150-450); RED BLOOD COUNT 3.97 10^6/uL (4.35-5.55); RED CELL DISTRIBUTION WIDTH 13.2 % (11.5-14.0)
[2017-09-16 11:48] LABS: WHITE BLOOD COUNT 23.6 10^3/uL (4.0-10.5)
[2017-09-16 11:59] LABS: ARTERIAL BLOOD BASE EXCESS -3.1 mmol/L; ARTERIAL BLOOD FIO2 40%; ARTERIAL BLOOD H2CO3 1.16 mmol/L (1.05-1.35); ARTERIAL BLOOD HCO3 21.8 mmol/L (20-26); ARTERIAL BLOOD O2 SATURATION 92.1 % (94-98); ARTERIAL BLOOD PCO2 38.4 mmHg (35-45); ARTERIAL BLOOD PH 7.37 (7.35-7.45); ARTERIAL BLOOD PO2 64.2 mmHg (80-100); ARTERIAL BLOOD TOTAL CO2 22.9 mmol/L (23-27)
[2017-09-16 12:03] LABS: ALANINE AMINOTRANSFERASE 29 U/L (21-72); ALBUMIN 2.7 g/dL (3.5-5.0); ALKALINE PHOSPHATASE 147 U/L (38-126); ANION GAP 12 (5-19); ASPARTATE AMINO TRANSFERASE 80 U/L (17-59); BILIRUBIN,DIRECT 0.5 mg/dL (0.0-0.4); BILIRUBIN,TOTAL 0.6 mg/dL (0.2-1.3); BLOOD UREA NITROGEN 14 mg/dL (7-20); CALCIUM 8.6 mg/dL (8.4-10.2); CARBON DIOXIDE 22 mmol/L (22-30); CHLORIDE 103 mmol/L (98-107); CREATINE KINASE 136 U/L (55-170); GLUCOSE 115 mg/dL (75-110); POTASSIUM 4.5 mmol/L (3.6-5.0); SODIUM 137.2 mmol/L (137-145); TOTAL PROTEIN 5.3 g/dL (6.3-8.2)
[2017-09-16 12:13] LABS: CREATINE KINASE MB 4.77 ng/mL (<4.55); TROPONIN I 0.022 ng/mL
[2017-09-16 12:15] LABS: ABSOLUTE LYMPHOCYTES# (MANUAL) 0.2 10^3/uL (0.5-4.7); ABSOLUTE NEUTROPHILS# (MANUAL) 23.4 10^3/uL (1.7-8.2); BAND NEUTROPHILS % (MANUAL) 2 % (3-5); BASOPHILS % (MANUAL) 0 % (0-2); EOSINOPHILS % (MANUAL) 0 % (0-6); LYMPHOCYTES % (MANUAL) 1 % (13-45); MONOCYTES % (MANUAL) 0 % (3-13); SEGMENTED NEUTROPHILS % (MAN) 97 % (42-78); TOTAL CELLS COUNTED 100
[2017-09-16 12:16] LABS: PLATELET COMMENT ADEQUATE; RBC MORPHOLOGY COMMENT NORMO-CYTIC/CHROMIC
[2017-09-16] MEDS ORDERED: ACETAMINOPHEN 650 MG SUPP.RECT PR PRN (13:35)
[2017-09-16] MEDS ORDERED: MORPHINE SULFATE 10 MG/ML INJ IV ONE ×3 (14:00→17:00)
[2017-09-16] MEDS: MORPHINE SULFATE 60 MG/60 ML RTUINJ IV PRN (15:17)
[2017-09-16] MEDS: LORAZEPAM INJ 2 MG/1 ML VIAL IV PRN (16:27)
--- NOTE | 2017-09-16 19:19 | HISTORY AND PHYSICAL E ---
History and Physical NAME: RAMEZ ANTONIO : 1955 AGE: 61Y ADMITTED: 09/16/2017 ROOM: 316 CODE STATUS: DO NOT RESUSCITATE, DO NOT INTUBATE, WITH COMFORT CARE MEASURES ONLY. OUTPATIENT ONCOLOGIST: Dr. Helton. CHIEF COMPLAINT: Shortness of breath. HISTORY OF PRESENT ILLNESS: The patient is a 61-year-old male with a past medical history that includes a recent diagnosis of lung cancer. The patient presented to the Emergency Department from the [facility] due to cyanosis and tachypnea. The patient apparently was diagnosed with lung cancer within the past week or two. According to staff, the patient began to have extreme work of breathing. It was very hard to catch his breath. The patient's O2 sats dropped to 67% which remained the same on 3 L of O2. The patient was brought down to the Emergency Department. The patient stated he does not normally wear oxygen at home, denied any chest pain. Today made his third day of chemo. The patient is followed by Dr. Helton on an outpatient basis. The patient noted some impressive shortness of breath, was started on BiPAP and his pulse ox slowly improved to 94% on 04/20 at 80% FiO2. The patient appeared more comfortable. Chest x-ray showed a complete obstruction of the left lung, most likely is occlusion of his bronchus from the patient's lung mass. This was discussed with Dr. Helton who consulted Brett Rashid at [facility] who could potentially place a stent and reopen the bronchus. The plan was discussed with the patient who adamantly refused transfer to [facility]. The ED physician talked with the patient and he stated that he wanted to stay at this hospital and did not want any major interventions and would transition to comfort care, as he just wanted to be kept comfortable. ER physician made Dr. Helton aware of the patient's decision. When I saw the patient, I explained to him that he would only be on comfort measures at this time and that most likely, the patient would pass away from this bronchial occlusion. The patient is in agreement to this and states that, "I am strong but I do not want to feel pain. 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 I have add p.r.n. parameters to keep the patient's respirations less than 20 if needed and will discuss the case with hospice. At this time, the patient does not appear stable enough for transfer to [facility]. PAST MEDICAL HISTORY: Remarkable for: 1. Lung cancer. 2. Tobacco dependency, continuous. 3. Chronic obstructive pulmonary disease. HOME MEDICATIONS: Include Ventolin HFA 1-2 puffs inhalation q. 2 hours p.r.n. ALLERGIES: No known drug allergies. PAST SURGICAL HISTORY: Includes right knee construction in 1980. SOCIAL HISTORY: The patient does have a long history of tobacco use. The patient just stopped smoking a week ago. The patient denies any current alcohol use or illicit drug use. FAMILY MEDICAL HISTORY: Positive for chronic obstructive pulmonary disease and strokes in multiple family members. REVIEW OF SYSTEMS: Complete review of systems is difficult to appreciate, given the patient's shortness of breath and distress. PHYSICAL EXAMINATION: GENERAL: The patient is a frail, chronically ill-appearing 61-year-old male who is awake, alert. He is oriented to person, place, time, and situation. He does appear to be in significant distress. VITAL SIGNS: As follows: Temperature is 97.5, pulse 141, respirations 40, blood pressure is 92/62, oxygen saturation is 99% on 80% FiO2 on BiPAP. SKIN: Pale, dry. No rash. He is not diaphoretic. HEENT: Pupils equal, round, reactive to light and accommodation. Conjunctiva is pale. Sclerae is nonicteric. There is no JVP. BiPAP mask is in place. CARDIOVASCULAR: Heart is tachycardic, regular. No rub. CHEST: Extremely diminished, symmetrical, and labored. ABDOMEN: Soft, nontender, nondistended. BACK: No CVA tenderness, sacral edema. EXTREMITIES: No clubbing, cyanosis, edema, or peripheral signs of embolization. Pedal pulses +1 noted bilaterally. PSYCHIATRIC: Appropriate affect. DIAGNOSTICS: Lab values are as follows: Hematology obtained on 09/16/2017. WBCs are 23.6; hemoglobin is 11.9; hematocrit is 35.0; platelet count is 410,000. Coagulation obtained on 09/16/2017. PT is 14.4, INR is 1.06. ABG obtained on 09/16/2017; pH of 7.37, pCO2 is 38.4, pO2 is 64.2, bicarb is 21.8. Chemistry obtained on 09/16/2017: Sodium is 137, potassium 4.5, chloride is 103, carbon dioxide 22, BUN 14, creatinine is 0.80, glucose 115, calcium is 8.6, bilirubin is 0.6, AST 80, ALT is 29, alkaline phosphatase 147, CK 136, troponin 0.022, CK-MB is 4.77, BNP is 644, total protein 5.3, albumin 2.7. Microbiology obtained on 09/16/2017. Blood cultures are pending. Chest x-ray obtained on 09/16/2017 reveals airspace throughout the perihilar region appears to be a complete whiteout of the left leg with elevation of the left hemidiaphragm. IMPRESSION AND PLAN: 1. Pneumothorax. Most likely this is due to the patient's tumor burden. The patient has declined any intervention, although he knows this will be fatal. Will admit the patient to comfort care measures, continue to oxygenate at this time. Will place the patient on morphine AUDIO VISUAL PRODUCTION SPECIALIST at a basal of 2 and to administer morphine as needed to keep respirations between 18-20. Will also add p.r.n. Ativan for anxiety. 2. Tobacco dependency, continuous. Will continue p.r.n. nicotine patch. 3. COPD. Nebulizers as needed. DISPOSITION: The patient is a DO NOT RESUSCITATE, DO NOT INTUBATE WITH COMFORT CARE MEASURES ONLY. Pending patient's symptomatology and diagnostic findings, will re-evaluate as needed. Will admit the patient to inpatient medicine, as the patient's expected length of stay will surpass 2 midnights. Will consult hospice at this time. TIME SPENT: On this admission including assessment, plan, physical examination, patient education, review of previous records is 50 minutes. DICTATING PHYSICIAN: ROBBIE BATRES NP [id number] PHY#: [id number] ID: [id number] JOB#: [id number] ACCT: [id number] cc:BRIDGET MIRANDA M.D. > MTDVito
--- NOTE | 2017-09-16 23:39 | EKG REPORT ---
SEVERITY:- BORDERLINE ECG - SINUS TACHYCARDIA BORDERLINE T ABNORMALITIES, LATERAL LEADS : Confirmed by: Gissell Marie 16-Sep-2017 23:38:57
[2017-09-17] MEDS: MORPHINE SULFATE 10 MG/ML INJ IV PRN ×17 (00:38→22:14)
[2017-09-17] MEDS: LORAZEPAM INJ 2 MG/1 ML VIAL IV PRN ×3 (01:21→15:49)
[2017-09-17] MEDS: MORPHINE SULFATE 60 MG/60 ML RTUINJ IV PRN (21:17)
--- NOTE | 2017-09-17 23:06 | Palliative Consultation Report ---
Consultation From:: [facility] - [facility] HPI: Palliative Care Consult 09/17/17 10:35 AM Appreciate PC consult request for this unfortunate 61 year old patient who was admitted through the ER yesterday. Mr. Ray was diagnosed with small cell lung cancer just a few weeks ago, radiologic visualizaitonof tumor on 08/26/17. He was at [facility] yesterday receiving his third chemotherapy treatment when he developed sudden onset of dyspnea and oxygen saturation dropped quickly. He was brought to ER and xrays determined that he had nearly complete collapse of left lung and disease in right lung. He improved with Bipap and oxygen administration enough to tell providers that he did not want aggressive measures but did want pain control. Mr. 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 His girlfriend is at bedside and is shocked by the events of the past 24 hours. She said patient had told her the chemo was to shrink the tumor and he led her to believe it could cure it or control it. She was not aware of how ill he is and doesnt think he was aware of it either. She reports patient appears comfortable and occasionally opens his eyes and squeezes her hand. Onset: Just prior to arrival Onset/Duration: Sudden Severity: Severe Past Medical History(Consults) - General Information Source: [facility] Records Home Medications: Albuterol Sulfate [Ventolin Hfa] 1 - 2 puff IH Q4 PRN #1 [email or web address] 09/04/17 Allergies/Adverse Reactions: No Known Allergies Allergy (Verified 08/26/17 12:17) - Social History Lives with: Spouse/Significant other Family History: Reviewed & Not Pertinent, COPD, CVA Parental Family History Reviewed: No Children Family History Reviewed: No Sibling(s) Family History Reviewed.: No Smoking Status: Former Smoker Frequency of Alcohol Use: None Drugs: None - Past Medical History Cardiac Medical History: Reports: None Pulmonary Medical History: Reports: Hx COPD Renal/ Medical History: Denies: Hx Peritoneal Dialysis Malignancy Medical History: Reports Hx Lung Cancer - Surgical History Past Surgical History: Reports: Hx Orthopedic Surgery - R knee cap reconstruction 1980, wires in place Review of systems ROS unobtainable: due to mental statu Ojective:Exam Vital Signs: Temp Pulse Resp BP Pulse Ox 97.7 F 144 H 21 H 94/58 L 96 09/17/17 07:48 05/04/18 14:00 09/17/17 16:26 09/17/17 07:48 09/17/17 16:26 Intake & Output 09/16/17 09/17/17 09/18/17 06:59 06:59 06:59 Intake Total 573 72 Output Total 2100 Balance 573 -2027 Weight 52.6 kg - General General Appearance: Unresponsive, Sedated In distress: Mild Note:: Sleeping soundly with oxygen per bipap, - HEENT Head: Normocephalic - Respiratory Respiratory Status: Labored - Cardiovascular Rhythm: Regular, Tachycardia - Extremities Upper extremity: Normal inspection - Psychological Associated symptoms: Other - sedated Plan and Recommendation Plan and Recommendation: Mr. Ray appears comfortable on current TEST ENGINE OPERATOR settings. Breathing as well as he can with Bipap assist. Orders in place for additional pain or anxiety per Yousif hospitalist. Nurse reports some of patients friends have been here making statements about "cover-ups" and other comments about care and patients condition. Nurse Alexus explained diagnosis to people and handled situation well. Support offered to his friend who is shocked and hurting but has some support with friends and family. Patient probably will not live much longer. I gave Campbell my cell phone number in case she needs to talk or has questions. Total time 35 minutes. - Time Spent with Patient Time spent with patient: 15 to 30 Minutes
[2017-09-18] MEDS: MORPHINE SULFATE 10 MG/ML INJ IV PRN ×3 (00:19→16:31)
[2017-09-18] MEDS: LORAZEPAM INJ 2 MG/1 ML VIAL IV PRN ×3 (01:38→16:50)
--- NOTE | 2017-09-18 13:26 | PDOC PROGRESS REPORT ---
Subjective Progress Note for:: 09/18/17 Subjective:: Patient was recently diagnosed with lung cancer. He was actually at the infusion center and was ultimately transferred to the emergency room with acute respiratory failure. Chest x-ray shows a complete obstruction of the left lung likely secondary to occlusion of his bronchitis. Patient is currently on comfort care. Is currently sedated at the time of my exam although it appears that he was awake and alert yesterday at the time of admission. Reason For Visit: RESPIRATORY FAILURE, COMFORT MEASURES Physical Exam Vital Signs: Temp Pulse Resp BP Pulse Ox 97.9 F 119 H 15 97/53 L 100 09/18/17 07:31 09/18/17 07:31 09/18/17 07:31 09/18/17 07:31 09/18/17 07:31 Intake & Output 09/17/17 09/18/17 09/19/17 06:59 06:59 06:59 Intake Total 573 456 Output Total 2600 Balance 573 -2144 Weight 52.6 kg 50.9 kg General appearance: PRESENT: mild distress - on BIPAP Head exam: PRESENT: atraumatic Ear exam: PRESENT: normal external ear exam Respiratory exam: PRESENT: decreased breath sounds, rales, rhonchi. ABSENT: wheezes Neurological exam: PRESENT: other - sedated, unresponsive Psychiatric exam: PRESENT: other - sedated Results Impressions: Chest X-Ray 09/16/17 00:00 IMPRESSION: Since the prior exams, patient has near completely collapsed the left lung with elevation of the left hemidiaphragm. On the right side, there is new airspace disease throughout the perihilar region , edema versus pneumonia. Assessment & Plan - Time Time Spent with patient: 15-24 minutes - including discussion with family Medications reviewed and adjusted accordingly: Yes Anticipated discharge: Hospice - Inpatient Certification Based on my medical assessment, after consideration of the patient's comorbidities, presenting symptoms, or acuity I expect that the services needed warrant INPATIENT care.: Yes Medical Necessity: Other - Hospice care - Plan Summary Plan Summary: Spontaneous pneumothorax likely secondary to underlying lung cancer. Patient is being managed with comfort care measures. 2. Acute hypoxemic respiratory failure likely superimposed on chronic respiratory failure 3. COPD secondary to tobacco abuse 4. hospice care
[2017-09-19] MEDS: LORAZEPAM INJ 2 MG/1 ML VIAL IV PRN ×5 (01:40→18:08)
[2017-09-19] MEDS: MORPHINE SULFATE 60 MG/60 ML RTUINJ IV PRN (01:40)
[2017-09-19] MEDS: MORPHINE SULFATE 10 MG/ML INJ IV PRN ×10 (07:26→18:49)
--- NOTE | 2017-09-19 11:26 | PDOC PROGRESS REPORT ---
Subjective Progress Note for:: 09/19/17 Subjective:: Patient was recently diagnosed with lung cancer. He was actually at the infusion center and was ultimately transferred to the emergency room with acute respiratory failure. Chest x-ray shows a complete obstruction of the left lung likely secondary to occlusion of his bronchitis. Patient is currently on comfort care.Patient is unresponsive Reason For Visit: RESPIRATORY FAILURE, COMFORT MEASURES Physical Exam Vital Signs: Temp Pulse Resp BP Pulse Ox 99.1 F 153 H 13 105/58 L 94 09/19/17 07:10 09/19/17 07:10 09/19/17 07:10 09/19/17 07:10 09/19/17 07:10 Intake & Output 09/18/17 09/19/17 09/20/17 06:59 06:59 06:59 Intake Total 456 741 Output Total 2600 606 Balance -2144 135 Weight 50.9 kg 52.1 kg General appearance: PRESENT: no acute distress, other - Agonal breathing Respiratory exam: PRESENT: accessory muscle use Neurological exam: PRESENT: other - Unresponsive Results Impressions: Chest X-Ray 09/16/17 00:00 IMPRESSION: Since the prior exams, patient has near completely collapsed the left lung with elevation of the left hemidiaphragm. On the right side, there is new airspace disease throughout the perihilar region , edema versus pneumonia. Assessment & Plan - Time Time Spent with patient: Less than 15 minutes Anticipated discharge: Hospice - Plan Summary Plan Summary: 1.Spontaneous pneumothorax likely secondary to underlying lung cancer. Continue comfort care measures. 2. Acute hypoxemic respiratory failure likely superimposed on chronic respiratory failure 3. COPD secondary to tobacco abuse 4. hospice care
[2017-09-20] MEDS: MORPHINE SULFATE 60 MG/60 ML RTUINJ IV PRN (04:08)
[2017-09-20] MEDS: LORAZEPAM INJ 2 MG/1 ML VIAL IV PRN ×5 (04:51→19:30)
[2017-09-20] MEDS: MORPHINE SULFATE 10 MG/ML INJ IV PRN ×12 (07:36→23:24)
--- NOTE | 2017-09-20 16:20 | PDOC PROGRESS REPORT ---
Subjective Progress Note for:: 09/20/17 Subjective:: Patient was recently diagnosed with lung cancer. He was actually at the infusion center and was ultimately transferred to the emergency room with acute respiratory failure. Chest x-ray shows a complete obstruction of the left lung likely secondary to occlusion of his bronchitis. Patient is currently on comfort care.Patient is unresponsive Reason For Visit: RESPIRATORY FAILURE, COMFORT MEASURES Physical Exam Vital Signs: Temp Pulse Resp BP Pulse Ox 99.1 F 119 H 10 L 126/59 H 97 09/20/17 07:36 09/20/17 07:36 09/20/17 12:13 09/20/17 07:36 09/20/17 08:11 Intake & Output 09/19/17 09/20/17 09/21/17 06:59 06:59 06:59 Intake Total 741 360 Output Total 606 1450 Balance 135 -1090 Weight 52.1 kg 50.1 kg General appearance: PRESENT: thin, other - hypopneic Respiratory exam: PRESENT: accessory muscle use Cardiovascular exam: PRESENT: tachycardia Neurological exam: PRESENT: other - unresponsive Results Impressions: Chest X-Ray 09/16/17 00:00 IMPRESSION: Since the prior exams, patient has near completely collapsed the left lung with elevation of the left hemidiaphragm. On the right side, there is new airspace disease throughout the perihilar region , edema versus pneumonia. Assessment & Plan - Time Time Spent with patient: Less than 15 minutes Medications reviewed and adjusted accordingly: Yes Anticipated discharge: Hospice - Inpatient Certification Based on my medical assessment, after consideration of the patient's comorbidities, presenting symptoms, or acuity I expect that the services needed warrant INPATIENT care.: Yes Medical Necessity: Need for Pain Control - Plan Summary Plan Summary: 1.Spontaneous pneumothorax likely secondary to underlying lung cancer. Continue comfort care measures. 2. Acute hypoxemic respiratory failure likely superimposed on chronic respiratory failure 3. COPD secondary to tobacco abuse 4. hospice care
--- NOTE | 2017-09-20 22:26 | Progress Note ---
Provider Note Provider Note: Palliative Care Follow Up visit. 09/20/17 2:45 pm Visit made to offer support for gopal and his girlfriend. Mr. Ray remains on comfort care, still requiring Bipap and has very little response. He is very pale and frail in appearance, but does not seem to be in any pain or distress. Nurses are watching carefully and they are medicating when tachypneic or tachycardia is apparent. He is breathing regularly using accessory muscles. Skin cool and dry. Girlfriend is still at bedside, says she has not left hospital since he came in. She is afraid to leave for fear he will wake up and she will not be there. I talked to her at length about her fears, grief and her life with Mr. Ray. Her first also and she has been with Mr. Ray for 20 years. She discussed some good memories she has and how good he has been to her daughter and also to her. She could not bring herself to say he is dying, but she understands what is going on. Will follow for what little support and comfort I can bring in this very sad situation. Appreciate the gentle care they are both getting from all staff and doctors.
[2017-09-21] MEDS: MORPHINE SULFATE 10 MG/ML INJ IV PRN ×11 (01:15→19:39)
[2017-09-21] MEDS: LORAZEPAM INJ 2 MG/1 ML VIAL IV PRN ×7 (03:28→19:38)
--- NOTE | 2017-09-21 16:45 | PDOC PROGRESS REPORT ---
Subjective Progress Note for:: 09/21/17 Subjective:: Patient was recently diagnosed with lung cancer. He was actually at the infusion center and was ultimately transferred to the emergency room with acute respiratory failure. Chest x-ray shows a complete obstruction of the left lung likely secondary to occlusion of his bronchitis. Patient is currently on comfort care.Patient is unresponsive Reason For Visit: RESPIRATORY FAILURE, COMFORT MEASURES Physical Exam Vital Signs: Temp Pulse Resp BP Pulse Ox 100.3 F 121 H 12 122/63 99 09/21/17 07:22 09/21/17 07:22 09/21/17 11:34 09/21/17 07:22 09/21/17 08:00 Intake & Output 09/20/17 09/21/17 09/22/17 06:59 06:59 06:59 Intake Total 360 384 0 Output Total 1450 1102 200 Balance -1090 -718 -200 Weight 50.1 kg 48.7 kg General appearance: PRESENT: no acute distress Head exam: PRESENT: atraumatic Respiratory exam: PRESENT: accessory muscle use Neurological exam: PRESENT: other - unresponsive Results Laboratory Results: 09/16/17 13:20 Blood Blood Culture - Final NO GROWTH IN 5 DAYS Impressions: Chest X-Ray 09/16/17 00:00 IMPRESSION: Since the prior exams, patient has near completely collapsed the left lung with elevation of the left hemidiaphragm. On the right side, there is new airspace disease throughout the perihilar region , edema versus pneumonia. Assessment & Plan - Time Time Spent with patient: Less than 15 minutes Anticipated discharge: Hospice Within: within 48 hours - Inpatient Certification Based on my medical assessment, after consideration of the patient's comorbidities, presenting symptoms, or acuity I expect that the services needed warrant INPATIENT care.: Yes Medical Necessity: Need for Pain Control - Plan Summary Plan Summary: 1.Spontaneous pneumothorax likely secondary to underlying lung cancer. Continue comfort care measures. 2. Acute hypoxemic respiratory failure likely superimposed on chronic respiratory failure 3. COPD secondary to tobacco abuse 4. hospice care
[2017-09-21] MEDS: MORPHINE SULFATE 60 MG/60 ML RTUINJ IV PRN (22:02)
[2017-09-22] MEDS: LORAZEPAM INJ 2 MG/1 ML VIAL IV PRN ×2 (00:31→23:05)
[2017-09-22] MEDS: MORPHINE SULFATE 60 MG/60 ML RTUINJ IV PRN (13:00)
--- NOTE | 2017-09-22 18:23 | PDOC PROGRESS REPORT ---
Subjective Progress Note for:: 09/22/17 Subjective:: The patient remains on comfort measures. He is on 4 mg an hour morphine drip. Unfortunately he still has BiPAP in place. I had a long discussion with the family regarding the fact that this is likely prolonging his . For now they want to keep it in place and are reluctant to remove it. The patient himself seems quite comfortable. Review of systems could not be obtained Reason For Visit: RESPIRATORY FAILURE, COMFORT MEASURES Physical Exam Vital Signs: Temp Pulse Resp BP Pulse Ox 100.1 F 104 H 10 L 109/63 96 09/22/17 07:25 09/22/17 07:25 09/22/17 16:00 09/22/17 07:25 09/22/17 08:20 Intake & Output 09/21/17 09/22/17 09/23/17 06:59 06:59 06:59 Intake Total 384 3421 0 Output Total 1102 1125 0 Balance -718 2296 0 Weight 48.7 kg 46.8 kg General appearance: PRESENT: other - The patient is quite cachectic. Currently on BiPAP. He appears to be comfortable Head exam: PRESENT: atraumatic, other - He has bitemporal muscle wasting Mouth exam: PRESENT: dry mucosa Respiratory exam: PRESENT: other - Coarse rhonchi throughout all lung feldman anteriorly Cardiovascular exam: PRESENT: tachycardia - With a regular rhythm GI/Abdominal exam: PRESENT: hypoactive bowel sounds. ABSENT: tenderness Rectal exam: PRESENT: deferred Extremities exam: PRESENT: full ROM. ABSENT: calf tenderness, clubbing, pedal edema Musculoskeletal exam: ABSENT: ambulatory Neurological exam: PRESENT: other - The patient is unresponsive Psychiatric exam: PRESENT: other - He appears to be comfortable Skin exam: PRESENT: dry, intact, warm. ABSENT: cyanosis, rash Results Impressions: Chest X-Ray 09/16/17 00:00 IMPRESSION: Since the prior exams, patient has near completely collapsed the left lung with elevation of the left hemidiaphragm. On the right side, there is new airspace disease throughout the perihilar region , edema versus pneumonia. Assessment & Plan - Diagnosis (1) Acute respiratory failure with hypoxia Is this a current diagnosis for this admission?: Yes (2) Pneumothorax Is this a current diagnosis for this admission?: Yes (3) Lung cancer Qualifiers: Laterality: left Lung location: hilum of lung Qualified Code(s): C34.02 - Malignant neoplasm of left main bronchus Is this a current diagnosis for this admission?: Yes (5) Anemia Qualifiers: Anemia type: due to chronic kidney disease Is this a current diagnosis for this admission?: Yes (6) Elevated liver function tests Is this a current diagnosis for this admission?: Yes (7) Tobacco abuse Is this a current diagnosis for this admission?: Yes (8) Do not resuscitate Is this a current diagnosis for this admission?: Yes (9) Palliative care encounter Is this a current diagnosis for this admission?: Yes Plan: The patient remains on comfort measures here in the hospital. He is on an IV morphine drip. He has IV Ativan available as needed. He still is requiring on BiPAP. I did briefly discuss this with the girlfriend at the bedside and her family. The patient's sister actually makes decisions. The patient's girlfriend really did not want the BiPAP removed. If his becomes prolonged then further discussions could be had about stopping the BiPAP. - Time Time Spent with patient: 25-34 minutes - Inpatient Certification Medical Necessity: Other - Inpatient hospitalization remains necessary for end- of-life care. The patient is on an IV morphine drip. Timing he will remain in the hospital until he passes.
[2017-09-23] MEDS: MORPHINE SULFATE 60 MG/60 ML RTUINJ IV PRN (04:47)
[2017-09-23 07:36] VITALS: BP 107/69
[2017-09-23] MEDS: LORAZEPAM INJ 2 MG/1 ML VIAL IV PRN (14:15)
[2017-09-23] MEDS: MORPHINE SULFATE 10 MG/ML INJ IV PRN ×3 (14:15→15:58)
[2017-09-23] MEDS ORDERED: MORPHINE SULFATE 60 MG/60 ML RTUINJ IV PRN (16:50)
[2017-09-23] MEDS ORDERED: LORAZEPAM INJ 2 MG/1 ML VIAL IV PRN (16:52)
--- NOTE | 2017-09-23 17:46 | Death Summary ---
Summary Date : 09/23/17 Time of :: 17:00 Autopsy: No Resuscitation Status: Comfort Measures Only Primary Care Provider: Unknown - Final Diagnosis (1) Small cell carcinoma of lung Is this a current diagnosis for this admission?: Yes (2) Pneumothorax Is this a current diagnosis for this admission?: Yes (3) COPD (chronic obstructive pulmonary disease) Is this a current diagnosis for this admission?: Yes (4) Severe protein-calorie malnutrition Is this a current diagnosis for this admission?: Yes Hospital Course:: Patient was admitted with difficulty breathing and shortness of breath. Was recently diagnosed with lung cancer and he was receiving palliative chemotherapy. Admitting chest x-ray showed a complete obstruction of the left lung. Patient shows to be a DO NOT RESUSCITATE as well as comfort care and was treated with supportive oxygen as well as analgesics. He was seen by the palliative care team. Patient was kept comfortable and placed on SHIPPING WEIGHER pump morphine. Patient finally succumbed and today September 23 at 1700.
== END 2017-09-23 18:30 | DRG 180 ==
LOC: ER 11:05 → EH 12:47 → 3W 14:42
PROVIDERS: ADMIT Family Medicine; ATTEND Family Medicine
PROC: 5A09557 Assistance with Respiratory Ventilation, Greater than 96 Consecutive Hours, Continuous Positive Airway Pressure (ICD-10-PCS; principal; 2017-09-16)
DX: C34.02 Malignant neoplasm of left main bronchus (principal); J96.21 Acute and chronic respiratory failure with hypoxia; E43 Unspecified severe protein-calorie malnutrition; J93.12 Secondary spontaneous pneumothorax; Z68.1 Body mass index [BMI] 19.9 or less, adult; D63.0 Anemia in neoplastic disease; Z66 Do not resuscitate; J44.9 Chronic obstructive pulmonary disease, unspecified; F17.200 Nicotine dependence, unspecified, uncomplicated; Z51.5 Encounter for palliative care; Z82.49 Family history of ischemic heart disease and other diseases of the circulatory system
CPT/HCPCS: 36415; 36600; 71045; 80053; 82550; 82553; 82803; 83880; 84484; 85025; 85610; 85730; 87040; 93005; 93010; 94640; 94660; 96374; 99291; J1940; J2060; J2270; J3490; J7620